=== PATIENT | male | born 1930 | race Caucasian/White ===

== ENCOUNTER 2016-11-28 09:06 | Inpatient (IN) | payer MEDICARE ==
[~2016-11-28] VITALS: Ht 175.3 cm; Wt 118.2 kg
[~2016-11-28 09:06] MED LIST: ALLO100T PO; AMLO5TAB2 PO; AMOX-355 PO; CARV25TA PO; COLC0.6T53 PO; FURO40TA4 PO; HYDR-3812 PO; LISI-552 PO; OMEP20CA12 PO; POTA10TA36 PO; PRD20T PO; RIVA15TA PO; TERA10CA3 PO
[2016-11-28 11:00] VITALS: BP 139/87
[2016-11-28] MEDS ORDERED: AMLO10TA2 PO (11:05)
[2016-11-28] MEDS ORDERED: OXYB10TA PO (11:05)
[2016-11-28] MEDS ORDERED: CARV12.53 PO (11:05)
[2016-11-28] MEDS ORDERED: BELLADONNA ALK/OPIUM (B & O) 30 MG SUPP PR PRN (11:30)
[2016-11-28] MEDS ORDERED: ACETAMINOPHEN 325 MG TABLET/CAPLET (TYLENOL) PO PRN (11:30)
[2016-11-28] MEDS ORDERED: CATHETER FLUSH 10 ML SYR IV PRN (11:45)
[2016-11-28] MEDS ORDERED: OMEG-109 PO (12:22)
[2016-11-28] MEDS ORDERED: VITAMIN B-12 PO (12:22)
--- NOTE | 2016-11-28 12:39 | Diagnostic Imaging Report ---
EXAMINATION: PA and lateral views of the chest. INDICATION: Preoperative evaluation. COMPARISON: No prior studies are available for comparison. FINDINGS: The heart is mildly enlarged. There is left basilar infiltrate or atelectasis. The right lung is clear. There is pulmonary hyperinflation. There is no effusion or pneumothorax. The mediastinum and sandra appear unremarkable. IMPRESSION: Cardiomegaly. COPD. Mild opacity in the left lower lobe may relate to atelectasis or infiltrate. Correlate clinically. Dictated by: Dictated on workstation # [id number]
[2016-11-28] MEDS: 1/2 NS IV SOLUTION 1,000 ML IV SCH (13:52)
[2016-11-28] MEDS: GABAPENTIN 100 MG (NEURONTIN) CAP PO SCH ×2 (13:57→20:04)
[2016-11-28] MEDS: OXYBUTYNIN (DITROPAN) 5 MG TAB PO SCH ×2 (13:57→20:04)
--- NOTE | 2016-11-28 15:28 | Consultation-Cardiology ---
HPI-Cardiology Cardiology Consultation: Date of Consultation 11/28/16 Date of Admission Attending Physician Gabriel Veloz MD Admitting Physician Franci Bose MD Consulting Physician Esvin MATHIAS MD HPI: Chief Complaint: hematuria this is a pleasant 86-year-old gentleman who is a patient of Dr. Veloz. He presents with gross hematuria and cystoscopy is planned for Monday. Dr Veloz consulted cardiology for management of atrial fibrillation, congestive heart failure and perioperative cardiovascular risk assessment. Patient has history of chronic atrial fibrillation and was on Xarelto as an outpatient. Xarelto was discontinued when hematuria occurred. Patient also has history of congestive heart failure and takes Lasix. Amlodipine for blood pressure. The patient denies any cardiac symptoms especially chest pain, shortness of breath, palpitations, near syncope, syncope. Review of Systems-Cardiology Review of Systems Constitutional: No As described under HPI, No no symptoms reported, No chills, No fever, No lightheadedness, No malaise, No tiredness, No weight loss, No weight gain, No other Eyes: No As described under HPI, No no symptoms reported, No blindness, No blurred vision, No contact lenses, No drainage, No decreased acuity, No foreign body sensation, No glasses, No inflammation, No pain, No photophobia, No previous injury, No shadows, No tunnel vision, No other, No vision change Ears/Nose/Throat: No As described under HPI, No no symptoms reported, No chronic hearing loss, No epistaxis, No ear discharge, No ear pain, No loose teeth, No mouth pain, No mouth swelling, No nasal drainage, No nose pain, No recent hearing loss, No throat pain, No throat swelling, No ulcerations, No other Respiratory: No no symptoms reported, No As described under HPI, No cough, No orthopnea, No shortness of breath, No SOB with excertion, No SOB at rest, No stridor, No wheezing, No other Cardiovascular: No no symptoms reported, No As described under HPI, No chest pain, No edema, No irregular heart rate, No lightheadedness, No palpitations, No syncope, No other Gastrointestinal: No no symptoms reported, No As described under HPI, No abdomen distended, No abdominal pain, No blood streaked bowels, No constipation , No diarrhea, No difficulty swallowing, No nausea, No poor appetite, No poor fluid intake, No rectal bleeding, No vomiting, No other, No nausea/vomiting/ diarrhea, No stool coloration changes Genitourinary: hematuria Musculoskeletal: No no symptoms reported, No As describe under HPI, No back pain, No gout, No joint pain, No joint swelling, No muscle pain, No muscle stiffness, No neck pain, No other Skin: No no symptoms reported, No As described under HPI, No change in color, No change in hair/nails, No dryness, No lesions, No lumps, No rash, No other, No skin related problems, No ulcerations, No rash on exposed areas, No ulcerations on exposed areas Psychiatric/Neurological: No As described under HPI, No anxiety, No depression , No emotional problems, No focal weakness, No headache, No no symptoms reported , No numbness, No other, No pre-existing deficit, No seizure, No syncope, No tingling, No tremors, No weakness Hematologic: anemia NFS-[id number] Hx Patient Social History Alcohol Use: Denies Use Recreational Drug Use: No Smoking Status: Former Smoker Type Used: Cigarettes Recent Foreign Travel: No Recent Infectious Disease Expo: No Hospitalization with Isolation: Denies Physical Abuse Screen: No Sexual Abuse: No Past Medical History PMH As described under Assessment. Allergies and Home Medications Allergies Coded Allergies: No Known Drug Allergies (Unverified , 11/28/16) Home Medications Allopurinol 100 Mg Tablet, 100 MG PO BID, (Reported) Amlodipine Besylate 10 Mg Tablet, 10 MG PO DAILY, (Reported) Carvedilol 12.5 Mg Tablet, 12.5 MG PO BID, (Reported) Furosemide 40 Mg Tablet, 40 MG PO DAILY, (Reported) Lisinopril 20 Mg Tablet, 20 MG PO DAILY, (Reported) [place]-3 Fatty Acids/Fish Oil 1 Each Capsule, 1,200 MG PO BID, (Reported) Omeprazole 20 Mg Capsule.dr, 20 MG PO DAILY, (Reported) Oxybutynin Chloride 10 Mg Tab.er.24, 10 MG PO DAILY, (Reported) Potassium Chloride 10 Meq Tab.er.prt, 10 MEQ PO DAILY, (Reported) Terazosin HCl 10 Mg Capsule, 10 MG PO DAILY, (Reported) [Vitamin B-12] , 1 TAB PO DAILY, (Reported) Physical Exam-Cardiology Physical Exam Vital Signs/I&O Vital Sign - Last 12Hours 11/28/16 11/28/16 11/28/16 11:00 13:33 14:42 Temp 97.8 Pulse 94 Resp 24 B/P (MAP) 139/87 Pulse Ox 92 84 O2 Delivery Room Air O2 Flow Rate 4.00 Capillary Refill : Constitutional: No appears stated age, No AAO x 3, No apparent distress, No PERRL, No well-developed, No well-nourished, No other HEENT: No PERRL, No normal ENT inspection, No TMs normal, No pharynx normal, No scleral icterus (R), No scleral icterus (L), No pale conjunctivae (R), No pale conjunctivae (L), No photophobia, No TM abnormal (R), No TM abnormal (L), No pharyngeal erythema, No tonsillar exudate, No other, No discharge, No EOMI, No hearing is well preserved, No hard of hearing, No oral hygience is good, No ulceration, No xanthelasmas are seen Neck: No non-tender, No full range of motion, No supple, No normal inspection, No carotid bruit, No limited range of motion, No lymphadenopathy (R), No lymphadenopathy (L), No tender lateral, No tender midline, No thyromegaly, No other, No carotid pulses are 2 + bilaterally, No with good upstrokes Respiratory: No accessory muscle use, No respiratory distress, No chest tender , No chest expansion is symmetric, No chest is bilaterally symmetric, No lungs clear to percussion, No lungs clear to auscultation, No crackles, No rhonchi, No rales, No stridor, No wheezing, No pleural rub, No other Cardiovascular: No regular rate-rhythm, irregularly irregular, No extra beats, No parasternal heave is noted, No JVD, No edema, No bradycardia, No tachycardia , No point of maximal impulse, No cardiac thrills are palpable, No S1 and S2, No gallop/S3, No gallop/S4, No diastolic murmur, No systolic murmur, No friction rub, No click, No other Gastrointestinal: No tender, No soft, No round, No distended, No pulsatile mass , No organomegaly, No guarding, No rebound, No tenderness, No hernia, No mass, No audible bowel sounds, No abnormal bowel sounds, No abdominal bruits, No spleenomegaly, No other Rectal: deferred Extremities: No normal range of motion, No non-tender, No normal inspection, No pedal edema, No calf tenderness, No normal capillary refill, No pelvis stable , No calf tenderness, No inflammation, No pedal edema, No slow capillary refill , No swelling, No other, No abrasion, No clubbing, No cyanosis, No ecchymosis, No laceration, No no lower extremity edema bilateral, No significant edema, No tenderness, No wound Neurologic/Psychiatric: No manager implementation II-XII nml as tested, No no motor/sensory deficits, No alert, No normal mood/affect, No oriented x 3, No abnormal cerebellar tests, No abnormal manager implementation II-XII, No abnormal gait, No aphasia, No EOM palsy, No facial droop, No motor weakness, No sensory deficit, No depressed affect, No disoriented x 3, No other, No grossly intact, No power is 5/5 both on sides Skin: No normal color, No warm/dry, No cyanosis, No cool, No diaphoresis, No damp, No ecchymosis, No jaundice, No mottled, No pallor, No rash, No tattoos/ piercings, No ulcerations, No rash on exposed areas, No ulcerations on exposed areas, No other ECG Impression ECG Initial ECG Impression: Atrial Fibrillation Comment atrial fibrillation with heart rate 78 bpm. Normal QTC. A/P-Cardiology Assessment/Admission Diagnosis gross hematuria, Chronic atrial fibrillation, Congestive heart failure, Perioperative cardiovascular risk assessment. Plan cardiology consult is requested by for perioperative cardiovascular risk assessment, congestive heart failure and atrial fibrillation. Atrial fibrillation: Patient has chronic atrial fibrillation. The rate is well controlled. I agree with holding Xarelto till source of bleeding is identified and treated. I discussed with the patient and family at length and shared with them that while the patient is off Xarelto there is slight increase in risk of stroke however Xarelto is contraindicated at this point in time due to active bleeding. we will start Xarelto as soon as it is okay to start as per Dr. Veloz. He was on 15 mg of Xarelto (CKD dose). hypertension: Continue amlodipine. Congestive heart failure: Euvolemic. No evidence of gross congestive heart failure. Agree with furosemide. chronic kidney disease: Creatinine 2.46, GFR 25. I gave the patient and family the phone number of a new nephrology office which will be opening across the hospital in [place], if they want, they can follow up there. I will also request an echocardiogram and old records from [facility]. Based on the above the patient will be considered at intermediate risk for major adverse diego-operative cardiac events undergoing a low to intermediate risk non-cardiac procedure. I do not see any contraindication to the above- mentioned procedure. Thank you for your consultation. Please call me if you have any questions. Samina Mathias MD, FACP, FACC, FSCAI, FHRS, CCDS Interventional Cardiology Cardiac Electrophysiology Vascular Medicine and Endovascular Interventions Clinical Quality Measures DVT/VTE Risk/Contraindication: Risk Factor Score Per Nursin RFS Level Per Nursing on Admit: 4+=Very High Esvin MATHIAS MD Nov 28, 2016 3:28 pm
[2016-11-28 16:34] VITALS: BP 120/74
[2016-11-28] MEDS: ALLOPURINOL 100 MG (ZYLOPRIM) TAB PO SCH (17:19)
[2016-11-28] MEDS: KCL 10 MEQ TAB (MICRO K) PO SCH (17:19)
[2016-11-28] MEDS: TERAZOSIN 5 MG (HYTRIN) CAPSULE PO SCH (20:04)
[2016-11-28 20:21] VITALS: BP 128/78
[2016-11-29] VITALS (13 sets, daily range): BP systolic 103–158; BP diastolic 57–94
[2016-11-29] MEDS: 1/2 NS IV SOLUTION 1,000 ML IV SCH ×2 (00:13→20:35)
[2016-11-29] MEDS: PANTOPRAZOLE 20 MG TABLET (PROTONIX) PO SCH (06:21)
[2016-11-29] MEDS: KCL 10 MEQ TAB (MICRO K) PO SCH ×2 (06:21→18:34)
--- NOTE | 2016-11-29 07:46 | Progress Note-Pre Operative ---
Pre-Operative Progress Note H&P Reviewed The H&P was reviewed, patient examined and no changes noted. Date H&P Reviewed: Nov 29, 2016 Pre-Operative Diagnosis: GROSS HEMATURIA, POSSIBLE BLADDER TUMOR LISSY SNYDER MD Nov 29, 2016 7:46 am
--- NOTE | 2016-11-29 08:32 | HISTORY AND PHYSICAL ---
DATE OF ADMISSION: 11/28/2016. CHIEF COMPLAINT: 1. Gross hematuria. 2. Possible bladder tumor. PRESENT HISTORY: 86-year-old white man transferred from [facility] where he was treated for gross hematuria and a possible bladder tumor conservatively; however, he continued to have some bleeding and we transferred him to surgery under the care of cardiology and internal medicine and anesthesiologist presence. The patient is now with no real complaints. REVIEW OF SYSTEMS: Negative. PERSONAL HISTORY: The patient is , has children. No smoking. No alcohol. No drugs. FAMILY HISTORY: Noncontributory. PAST MEDICAL HISTORY: 1. Chronic atrial fibrillation. 2. High blood pressure. 3. Chronic congestive heart failure. 4. Gastroesophageal reflux disease. 5. He had history of cancer of the prostate, treated with radiation. HOME MEDICATIONS: Per chart. PHYSICAL EXAMINATION: GENERAL: Well-nourished, well-developed, in no acute distress. HEAD: Normocephalic. ENT: Unremarkable. NECK: Supple. No bruits. CHEST: Clear, nontender. HEART: Few irregularities. No murmur. No gallop. ABDOMEN: Soft, obese. EXTREMITIES: Lower extremity no edema or cyanosis. NEUROLOGICAL EXAM: Grossly intact. Oriented x3. IMPRESSION: 1. Gross hematuria. 2. Possible bladder tumor. 3. Chronic atrial fibrillation with congestive heart failure and hypertension. 4. Gastroesophageal reflux disease. 5. History of cancer of the prostate treated with radiation without evidence of recurrence. PLAN: We will get a cardiology consultation for surgery. We will do surgery either tomorrow or Monday, cystoscopy with evacuation of blood clots, cauterization of bleeders, possible TURBT. This was fully explained to the patient before and now as well as the family. Job ID: [id number] Dictated Date: 11/29/2016 07:17:02 Astronaut Mission Specialist Date: 11/29/2016 08:27:57/[email or web address]
[2016-11-29] MEDS ORDERED: SEVOFLURANE (ULTANE) 15 ML INHAL SOLN ONE (08:38)
[2016-11-29] MEDS ORDERED: ONDANSETRON 4 MG/2 ML (SDV) Z0FRAN ONE (08:38)
[2016-11-29] MEDS ORDERED: LACTATED RINGERS 1,000 ML IV ONE (08:38)
[2016-11-29] MEDS ORDERED: LIDOCAINE PF 2% 10 ML (XYLOCAINE) AMP ONE (08:38)
[2016-11-29] MEDS ORDERED: proPOfol 200 MG/20 ML (DIPRIVAN) VIAL IV ONE (08:38)
[2016-11-29] MEDS ORDERED: fentaNYL INJECTION 100 MCG/2 ML AMP ONE (08:38)
[2016-11-29] MEDS ORDERED: LACTATED RINGERS 1,000 ML IV PRN (08:58)
[2016-11-29] MEDS ORDERED: ESMOLOL 100 MG/10 ML (BREVIBLOC) VIAL ONE (09:27)
[2016-11-29] MEDS ORDERED: PHENYLEPHRINE 100 MCG/ML 10 ML (ANESTHESIA) SYR ONE (09:27)
[2016-11-29] MEDS ORDERED: RT-ALBUTEROL SULF 2.5 MG/3 ML PRE-MIX VIAL IH STA (09:45)
[2016-11-29] MEDS ORDERED: LACTATED RINGERS 1,000 ML IV SCH (09:51)
--- NOTE | 2016-11-29 09:51 | Progress Note-Post Operative ---
Post-Operative Progess Note Surgeon (s)/Drafter Detail (s) Surgeon LISSY SNYDER MD Drafter Detail: N/A Pre-Operative Diagnosis GROSS HEMATURIA, POSSIBLE BLADDER TUMOR Post-Operative Diagnosis GROSS HEMATURIA, RADIATION CYSTITIS Post-Op Procedure Note Date of Procedure: Nov 29, 2016 Name of Procedure Performed: CYSTOSCOPY, EVACUATION OF CLOTS AND CAUTERIZATION OF BLEEDERS Description of the Procedure: PER DICTATION Findings of the Procedure PER DICTATION Anesthesia Type GENERAL Estimated blood loss (mL): N/A Specimen(s) collected/removed CLOTS LISSY SNYDER MD Nov 29, 2016 09:51
[2016-11-29] MEDS ORDERED: BELLADONNA ALK/OPIUM (B & O) 30 MG SUPP PR PRN (10:00)
[2016-11-29] MEDS ORDERED: morphine INJ 10 MG/ML 1ML (SYR OR VIAL) IVP PRN (10:00)
[2016-11-29] MEDS ORDERED: ONDANSETRON 4 MG/2 ML (SDV) Z0FRAN IVP PRN (10:00)
[2016-11-29] MEDS ORDERED: RT-ALBUTEROL SULF 2.5 MG/3 ML PRE-MIX VIAL ONE (11:57)
--- NOTE | 2016-11-29 12:00 | OPERATIVE REPORT ---
PROCEDURE PHYSICIAN: LISSY SNYDER DATE OF PROCEDURE: 11/29/2016 PREOPERATIVE DIAGNOSIS: Gross hematuria, possible bladder tumor. POSTOPERATIVE DIAGNOSIS: Gross hematuria and radiation cystitis. No bladder tumor. OPERATION PERFORMED: Cystoscopy, evacuation of blood clots and cauterization of bleeder. SURGEON: Magdiel. COMPLICATIONS: None. PROCEDURE: Under satisfactory general anesthesia just using MLA so we do not paralyze the patient because of his bleeding problems, starting with his saturation oxygen of 70 and ended up in the 90s. The patient was put in lithotomy position, the genitalia were prepped and draped in usual sterile fashion after removing the [place] catheter. The urethra was dilated to [place] sound to accommodate 27-Malaysian Thomas resectoscope. The prostate was small. The bladder neck was opened. There was a couple of oozing bleeding at the bladder neck area which were cauterized and stopped. The blood clots were evacuated from the bladder and careful inspection of the bladder revealed no bladder tumor, no stones, just the picture of radiation cystitis. The resectoscope was then removed. A 22-Malaysian, three-way 30 mL balloon catheter was inserted in the bladder. The balloon inflated to 30 mL, connected to continuous bladder irrigation, the return of which was crystal clear. The estimated blood loss negligible. The patient tolerated the procedure and anesthesia well and was sent to recovery room in stable condition. PLAN: We will put him in the Intensive Care Unit at least overnight and will continue consulting Dr. Ed Mathias cardiology rosario. We will also put a consult for Dr. Londono regarding his breathing issues, sleep apnea and COPD, which seems to be the main issue over his heart issue. We will also consult Dr. Schwarz to consider treatment of his radiation cystitis. Job ID: [id number] Dictated Date: 11/29/2016 09:54:12 Disassembler Product Date: 11/29/2016 11:53:06 / karma
[2016-11-29] MEDS: OXYBUTYNIN (DITROPAN) 5 MG TAB PO SCH ×3 (14:36→21:21)
[2016-11-29] MEDS: GABAPENTIN 100 MG (NEURONTIN) CAP PO SCH ×3 (14:36→21:21)
[2016-11-29] MEDS: ALLOPURINOL 100 MG (ZYLOPRIM) TAB PO SCH ×2 (14:37→18:34)
[2016-11-29] MEDS: amLODIPine 5 MG (NORVASC) TAB PO SCH (14:57)
[2016-11-29] MEDS: LEVOFLOXACIN 500 MG/100 ML IV 100 ML IV SCH (14:58)
[2016-11-29] MEDS: FUROSEMIDE 40 MG (LASIX) TAB PO SCH (14:58)
--- NOTE | 2016-11-29 15:26 | Pulmonary Consultation ---
History of Present Illness History of Present Illness Date of Consultation 11/29/16 15:21 Date of Admission History of Present Illness 86yo with hx of CHF, and Afib who underwent cystoscopy secondary to hematuria. PT had some respiratory distress post surgery which SVN improved. Pt was transferred to ICU for close monitoring Allergies and Home Medications Allergies Coded Allergies: No Known Drug Allergies (Unverified , 11/28/16) Home Medications Allopurinol 100 Mg Tablet, 100 MG PO BID, (Reported) Amlodipine Besylate 10 Mg Tablet, 10 MG PO DAILY, (Reported) Carvedilol 12.5 Mg Tablet, 12.5 MG PO BID, (Reported) Furosemide 40 Mg Tablet, 40 MG PO DAILY, (Reported) Lisinopril 20 Mg Tablet, 20 MG PO DAILY, (Reported) [place]-3 Fatty Acids/Fish Oil 1 Each Capsule, 1,200 MG PO BID, (Reported) Omeprazole 20 Mg Capsule.dr, 20 MG PO DAILY, (Reported) Oxybutynin Chloride 10 Mg Tab.er.24, 10 MG PO DAILY, (Reported) Potassium Chloride 10 Meq Tab.er.prt, 10 MEQ PO DAILY, (Reported) Terazosin HCl 10 Mg Capsule, 10 MG PO DAILY, (Reported) [Vitamin B-12] , 1 TAB PO DAILY, (Reported) Past Pbnutxb-Agtxym-Vkvtik Hx Patient Social History Alcohol Use: Denies Use Recreational Drug Use: No Smoking Status: Former Smoker Type Used: Cigarettes Recent Foreign Travel: No Contact w/Someone Who Travel: No Recent Infectious Disease Expo: No Recent Hopitalizations: Yes (HEMATURIA IN [place]) Physical Abuse Screen: No Sexual Abuse: No Seasonal Allergies Seasonal Allergies: No Surgeries HX Surgeries: Yes (INGUINAL HERNIA REPAIR, RIGHT TOTAL HIP) Respiratory Hx Respiratory Disorders: Yes (USES CPAP) Respiratory Disorders: Sleep Apnea, COPD Cardiovascular Hx Cardiac Disorders: Yes ("ONE OF VALVES DOESNT WORK RIGHT", PT DIDNT REPORT CHF OR AFIB, DX ) Neurological Hx Neurological Disorders: No Reproductive System Hx Reproductive Disorders: No Sexually Transmitted Disease: No HIV/AIDS: No Genitourinary Hx Genitourinary Disorders: Yes (PROSTATE CA) Genitourinary Disorders: Benign Prostatic Hyperpl, Prostate Problems Gastrointestinal Hx Gastrointestinal Disorders: Yes (TAKES OMEPRAZOLE) Gastrointestinal Disorders: Gastroesophageal Reflux Musculoskeletal Hx Musculoskeletal Disorders: Yes Musculoskeletal Disorders: Gout HEENT HX ENT Disorders: Yes (GLASSES, SINUS PROBLEMS, PARTIAL DENTURE) Loss of Vision: Bilateral Hearing Impairment: Denies Cancer Hx Cancer: Yes (RADIATION [place] FOR PROSTATE CANCER) Cancer: Prostate Psychosocial Hx Psychiatric Problems: No Integumentary HX Skin/Integumentary Disorder: No Blood Transfusions Hx Blood Disorders: No Adverse Reaction to a Blood Tr: No Exam Exam Vital Signs Date Time Temp Pulse Resp B/P (MAP) Pulse Ox O2 Delivery O2 Flow Rate FiO2 11/29/16 09:00 Nasal Cannula 4.00 11/29/16 08:00 97.4 75 20 158/94 90 NIV/CPAP 11/29/16 04:00 98.0 64 20 128/83 92 NIV/CPAP 11/29/16 00:00 97.9 64 20 125/78 94 Room Air 11/28/16 21:00 Nasal Cannula 4.00 11/28/16 20:21 98.3 83 22 128/78 97 Room Air 11/28/16 16:34 98.7 86 20 120/74 95 Room Air I & O 11/29/16 06:59 Intake Total 1705 ml Output Total 1450 ml Balance 255 ml Assessment/Plan Assessment/Plan Hematuria s/p cystoscopy Dyspnea - PRN treatments -ICU monitoring GILLIAN -PT has CPAP machine with him he will use it tonight AFib- chronic currently controlled CHF - stable Clinical Quality Measures DVT/VTE Risk/Contraindication: Risk Factor Score Per Nursin RFS Level Per Nursing on Admit: 4+=Very High SHEILA HARO DO Nov 29, 2016 15:26
--- NOTE | 2016-11-29 16:22 | Cardiology Progress Note ---
Cardiology SOAP Progress Note Subjective: Seen post-operatively. No complaints. comfortable. Objective: I&O/Vital Signs Vital Sign - Last 12Hours 11/29/16 11/29/16 08:00 09:00 Temp 97.4 Pulse 75 Resp 20 B/P (MAP) 158/94 Pulse Ox 90 O2 Delivery NIV/CPAP Nasal Cannula O2 Flow Rate 4.00 Intake and Output 11/29/16 00:00 Intake Total 705 ml Output Total 1150 ml Balance -445 ml Weight (Pounds): 228 Weight (Ounces): 4.0 Weight (Calculated Kilograms): 103.759556 Constitutional: No appears stated age, No AAO x 3, No apparent distress, No PERRL, No well-developed, No well-nourished, No other Respiratory: No accessory muscle use, No respiratory distress, No chest tender , No chest expansion is symmetric, No chest is bilaterally symmetric, No lungs clear to percussion, No lungs clear to auscultation, No crackles, No rhonchi, No rales, No stridor, No wheezing, No pleural rub, No other Cardiovascular: No regular rate-rhythm, irregularly irregular, No extra beats, No parasternal heave is noted, No JVD, No edema, No bradycardia, No tachycardia , No point of maximal impulse, No cardiac thrills are palpable, No S1 and S2, No gallop/S3, No gallop/S4, No diastolic murmur, No systolic murmur, No friction rub, No click, No other Gastrointestional: No tender, No soft, No round, No distended, No pulsatile mass, No organomegaly, No guarding, No rebound, No tenderness, No hernia, No mass, No audible bowel sounds, No abnormal bowel sounds, No abdominal bruits, No spleenomegaly, No other Extremities: No normal range of motion, No non-tender, No normal inspection, No pedal edema, No calf tenderness, No normal capillary refill, No pelvis stable , No calf tenderness, No inflammation, No pedal edema, No slow capillary refill , No swelling, No other, No abrasion, No clubbing, No cyanosis, No ecchymosis, No laceration, No no lower extremity edema bilateral, No significant edema, No tenderness, No wound Neurologic/Psychiatric: No kiln stoker II-XII nml as tested, No no motor/sensory deficits, No alert, No normal mood/affect, No oriented x 3, No abnormal cerebellar tests, No abnormal kiln stoker II-XII, No abnormal gait, No aphasia, No EOM palsy, No facial droop, No motor weakness, No sensory deficit, No depressed affect, No disoriented x 3, No other, No grossly intact, No power is 5/5 both on sides Skin: No normal color, No warm/dry, No cyanosis, No cool, No diaphoresis, No damp, No ecchymosis, No jaundice, No mottled, No pallor, No rash, No tattoos/ piercings, No ulcerations, No rash on exposed areas, No ulcerations on exposed areas, No other A/P: Assessment/Dx: gross hematuria, Chronic atrial fibrillation, Congestive heart failure, Plan: Atrial fibrillation: Patient has chronic atrial fibrillation. The rate is well controlled. I agree with holding Xarelto till source of bleeding is identified and treated. Continue to hold xarelto for atleast 48 [address] Will wait for Dr Veloz's ok for restarting. He was on 15 mg of Xarelto (CKD dose). hypertension: Continue amlodipine. Congestive heart failure: Euvolemic. No evidence of gross congestive heart failure. Agree with furosemide. chronic kidney disease: Creatinine 2.46, GFR 25. Renal follow up as outpatient Echocardiogram shows normal EF, moderate mitral regurgitation, mild aortic stenosis. will continue to follow Thank you for your consultation. Please call me if you have any questions. Samina Mathias MD, FACP, FACC, FSCAI, FHRS, CCDS Interventional Cardiology Cardiac Electrophysiology Vascular Medicine and Endovascular Interventions Esvin MATHIAS MD Nov 29, 2016 4:22 pm
[2016-11-29] MEDS ORDERED: ALLOPURINOL 100 MG (ZYLOPRIM) TAB PO SCH (21:00)
[2016-11-29] MEDS: TERAZOSIN 5 MG (HYTRIN) CAPSULE PO SCH (21:21)
[2016-11-29] MEDS: CARVEDILOL 12.5 MG (COREG) TABLET PO SCH (21:21)
--- NOTE | 2016-11-29 22:45 | Wound Care Progress Note ---
Subjective Subjective Subjective/Events-last exam 86 year old male with severe, recalcitrant hematuria in a setting of previous therapeutic radiation treatments to pelvis for prostate cancer. I have been asked to evaluate for possible hyperbaric oxygen treatments to reverse radiation cystitis. Have discussed with the patient, and he is agreeable. I will review Radiation Therapy records, cardiac echo, and other documents, and plan to begin therapy as soon as he is stable. Past Medical History: Congestive heart failure, atrial fibrillation, hypertension, history of cancer of the prostate with radiation treatments. Family and social history: Patient is nonsmoker retired. Review of Systems General: Fatigue Pulmonary: Dyspnea Cardiovascular: No: Chest Pain Genitourinary: Hematuria Musculoskeletal: back pain Neurological: Weakness Objective Exam Last Set of Vital Signs Vital Signs Date Time Temp Pulse Resp B/P (MAP) Pulse Ox O2 Delivery O2 Flow Rate FiO2 11/29/16 20:50 2.00 11/29/16 20:00 94 Nasal Cannula 11/29/16 18:00 89 23 106/75 11/29/16 16:00 98.6 Capillary Refill : I&O Bad tableGeneral: Alert, Mild Distress Abdomen: Soft Assessment/Plan Assessment/Plan Assessment/Plan 1. Gross hematuria, refractory, recurrent. 2. History of prostate carcinoma with full dose radiation therapy, 6 years ago. 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 As has been discussed with both the patient and his family. MEE GENTILE MD Nov 29, 2016 22:45
[2016-11-30] VITALS (29 sets, daily range): BP systolic 89–130; BP diastolic 45–87
[2016-11-30] MEDS: LACTATED RINGERS 1,000 ML IV SCH ×3 (01:52→03:07)
[2016-11-30 04:01] LABS: MEAN PLATELET VOLUME 10.5 FL (7.4-10.4); RED BLOOD COUNT 3.06 10^6/uL (4.35-5.85); RED CELL DISTRIBUTION WIDTH 13.7 % (10.0-14.5)
[2016-11-30 04:19] LABS: CALCIUM 8.4 MG/DL (8.5-10.1); CREATININE SERUM 2.45 MG/DL (0.60-1.30); MAGNESIUM 1.7 MG/DL (1.8-2.4); PHOSPHORUS 3.8 MG/DL (2.3-4.7); POTASSIUM 5.2 MMOL/L (3.6-5.0)
--- NOTE | 2016-11-30 06:45 | Pulmonary Progress Note ---
Subjective Subjective/Events-last exam Pt has accessory muscle use and CXR looks worse. Exam Exam Vital Signs Date Time Temp Pulse Resp B/P (MAP) Pulse Ox O2 Delivery O2 Flow Rate FiO2 11/30/16 06:00 84 25 113/73 87 NIV/CPAP 2.00 11/30/16 05:00 73 24 104/82 91 NIV/CPAP 2.00 11/30/16 04:00 80 26 99/51 90 NIV/CPAP 2.00 11/30/16 04:00 94 NIV/CPAP 2.00 11/30/16 03:00 83 27 111/71 97 NIV/CPAP 2.00 11/30/16 02:00 89 23 118/69 97 NIV/CPAP 2.00 11/30/16 01:00 87 28 117/71 97 NIV/CPAP 2.00 11/30/16 01:00 86 11/30/16 00:00 94 NIV/CPAP 2.00 11/30/16 00:00 89 27 117/73 97 NIV/CPAP 2.00 11/29/16 23:00 85 25 126/77 97 NIV/CPAP 2.00 11/29/16 22:00 73 23 117/74 97 NIV/CPAP 2.00 11/29/16 21:00 92 23 126/73 94 Nasal Cannula 2.00 11/29/16 20:50 2.00 11/29/16 20:00 99.8 87 23 113/71 93 Nasal Cannula 2.00 11/29/16 20:00 94 Nasal Cannula 2.00 11/29/16 19:00 89 23 103/57 97 Nasal Cannula 2.00 11/29/16 19:00 90 11/29/16 18:00 89 23 106/75 Nasal Cannula 2.00 11/29/16 17:00 95 34 98 Nasal Cannula 2.00 11/29/16 16:10 94 Nasal Cannula 2.00 11/29/16 16:00 94 27 110/71 94 Nasal Cannula 2.00 11/29/16 16:00 98.6 Nasal Cannula 2.00 11/29/16 15:00 93 22 118/82 99 Nasal Cannula 2.00 11/29/16 14:00 94 26 140/83 95 Nasal Cannula 2.00 11/29/16 13:00 100 20 121/76 90 Nasal Cannula 2.00 11/29/16 12:00 94 Nasal Cannula 2.00 11/29/16 12:00 98.8 Nasal Cannula 2.00 11/29/16 10:40 98.7 Nasal Cannula 2.00 11/29/16 10:40 94 Nasal Cannula 2.00 11/29/16 09:00 Nasal Cannula 4.00 11/29/16 08:00 97.4 75 20 158/94 90 NIV/CPAP I & O 11/30/16 07:00 Intake Total 1400 ml Output Total 3600 ml Balance -2200 ml General Appearance: No Apparent Distress, WD/WN HEENT: PERRL/EOMI, TMs Normal, Normal ENT Inspection, Pharynx Normal Neck: Full Range of Motion, Normal Inspection, Non Tender Respiratory: Chest Non Tender, Normal Breath Sounds, No Accessory Muscle Use, No Respiratory Distress, Decreased Breath Sounds Cardiovascular: Regular Rate, Rhythm, No Edema, No Gallop Gastrointestinal: normal bowel sounds, non tender, soft, no organomegaly, no pulsatile mass Extremity: Normal Capillary Refill, Normal Inspection, Normal Range of Motion Neurologic/Psychiatric: Alert, Oriented x3 Skin: Normal Color, Cool Results Lab Laboratory Tests 11/30/16 03:45 Assessment/Plan Assessment/Plan Hematuria s/p cystoscopy Dyspnea - PRN treatments -ICU monitoring -CXR looks worse today -Check BNP and repeat CXR tomorrow -Keep in ICU one more day GILLIAN -PT has CPAP machine with him he will use it tonight AFib- chronic currently controlled CHF - stable Clinical Quality Measures DVT/VTE Risk/Contraindication: Risk Factor Score Per Nursin RFS Level Per Nursing on Admit: 4+=Very High SHEILA HARO DO Nov 30, 2016 06:45
[2016-11-30] MEDS: KCL 10 MEQ TAB (MICRO K) PO SCH ×2 (07:00→17:00)
[2016-11-30] MEDS ORDERED: FUROSEMIDE 40 MG/4 ML INJ (LASIX) IVP NR (07:07)
[2016-11-30] MEDS: FUROSEMIDE 40 MG (LASIX) TAB PO SCH (07:23)
[2016-11-30] MEDS: PANTOPRAZOLE 20 MG TABLET (PROTONIX) PO SCH (07:28)
[2016-11-30] MEDS ORDERED: MAGNESIUM 1 GM/100 ML IVPB 100 ML IV ONE ×2 (08:03→08:05)
[2016-11-30] MEDS: OXYBUTYNIN (DITROPAN) 5 MG TAB PO SCH ×3 (08:15→20:50)
[2016-11-30] MEDS: amLODIPine 5 MG (NORVASC) TAB PO SCH (08:15)
[2016-11-30] MEDS: GABAPENTIN 100 MG (NEURONTIN) CAP PO SCH ×3 (08:15→20:50)
[2016-11-30] MEDS: CARVEDILOL 12.5 MG (COREG) TABLET PO SCH ×2 (08:15→20:50)
[2016-11-30] MEDS: lisINopril 20 MG (ZESTRIL) TAB PO SCH (08:16)
[2016-11-30] MEDS: ALLOPURINOL 100 MG (ZYLOPRIM) TAB PO SCH ×2 (08:16→17:43)
[2016-11-30] MEDS: LEVOFLOXACIN 500 MG/100 ML IV 100 ML IV SCH (08:16)
--- NOTE | 2016-11-30 08:35 | ECHOCARDIOGRAPHY REPORT ---
PROCEDURE PHYSICIAN: PATRICIA MATHIAS DATE OF PROCEDURE: 11/28/2016 TWO DIMENSIONAL ECHOCARDIOGRAM REPORT PRIMARY PHYSICIAN: Dr. Franci Bose OTHER PHYSICIAN: REFERRING PHYSICIAN: ORDERING PHYSICIAN: Dr. Samina Mathias ATTENDING PHYSICIAN: Dr. Veloz FAMILY PHYSICIAN: READING PHYSICIAN: INDICATION FOR THE PROCEDURE: 1. Atrial fibrillation. 2. Gross hematuria. MEASUREMENTS DERIVED VALUES LV DIAMETER (LAX) NORMALS NORMALS Diastolic (3.6-5.2) Eject. Fract. (60%+/-6%) Systolic (2.3-3.9) Diastolic Vol. % Shortening (0.22-0.42) Systolic Vol. Aortic Root IVS THICKNESS Diastolic (0.6-1.1) LVPW THICKNESS Diastolic (0.6-1.1) LA DIAMETER Systolic (2.1-3.7) FINDINGS: 1. Atrial fibrillation. 2. Left atrial dimensions are significantly enlarged. Left atrial diameter is 5.5 cm. 3. Aortic root dimensions are normal. 4. Left ventricular systolic function is preserved. Left ventricular ejection fraction is 55 to 60%. Mild to moderate concentric LVH is present. Diastolic intraventricular septal diameter is 1.4 cm. 5. There are no wall motion abnormalities. 6. Right heart dimensions are normal. 7. There is no evidence of pericardial effusion. 8. Diastolic evaluation was not performed. 9. IVC is not well visualized. VALVULAR STRUCTURE OF THE HEART: 1. Mild tricuspid regurgitation with RVSP of 37 mmHg. 2. Mild aortic stenosis with peak gradient of 23 mmHg and mean gradient of 13 mmHg. There is moderate mitral regurgitation with mitral valve velocities of just over 4 m/sec. 3. Pulmonic valve is not well visualized. CONCLUSION: 1. This is a technically difficult study. 2. LV and RV size and function is normal. 3. LV EF is 55 to 60%. 4. There is mild to moderate concentric LVH. 5. There is moderate left atrial enlargement. 6. There is mild pulmonary hypertension. 7. There is mild aortic stenosis. 8. There is moderate mitral regurgitation. 9. This study was done in atrial fibrillation. Job ID: [id number] Dictated Date: 11/29/2016 16:18:01 Backhoe Operator Date: 11/30/2016 08:25:32 / allyson
--- NOTE | 2016-11-30 08:59 | Diagnostic Imaging Report ---
INDICATION: COPD. COMPARISON: 11/28/2016. FINDINGS: Two frontal radiographic views of the chest were obtained in apical lordotic positioning. The left hemidiaphragm is less well-defined on today's exam; however, this may be related to technique and superimposition of the cardiac silhouette and overlying soft tissues. No large effusion is seen on the right. There is no pneumothorax on either side. The cardiac silhouette does appear enlarged. The pulmonary vasculature is within normal limits. The bony structures show no gross acute abnormalities. IMPRESSION: 1. The left lung base is less well-visualized on today's exam. Again, this may be related to technique although a developing infiltrate cannot be excluded. 2. Cardiomegaly. Dictated by: Dictated on workstation # [id number]
[2016-11-30] MEDS ORDERED: OMEPRAZOLE 20 MG (PriLOSEC) CAP NON-FORMULARY PO SCH (09:00)
[2016-11-30] MEDS ORDERED: FUROSEMIDE 40 MG (LASIX) TAB PO SCH (09:00)
[2016-11-30] MEDS ORDERED: amLODIPine 10 MG (NORVASC) TAB PO SCH (09:00)
[2016-11-30] MEDS ORDERED: LEVOFLOXACIN 500 MG/100 ML IV 100 ML IV ONE (10:00)
--- NOTE | 2016-11-30 10:51 | Progress Note-Urology ---
Progress Note-Urology Progress Notes/Assess & Plan Progress/Assessment & Plan APPRECIATE AMANDA HARO AND ELIZABET HELP AND INPUT. URINE CLEAR. CXR NOTED. DISCUSSED WITH DR HARO. PLAN 1. CT CHEST WOUT AND MANAGE ACCORDINGLY 2. LABS IN AM URINE CLEAR, DC CBI Final Diagnosis GROSS HEMATURIA AND RADIATION CYSTITIS LISSY SNYDER MD Nov 30, 2016 10:51
[2016-11-30] MEDS ORDERED: PHARMACY TO DOSE IV SCH (11:15)
[2016-11-30] MEDS ORDERED: NS IV 1000 ML 1,000 ML ONE ×5 (11:28→23:11)
--- NOTE | 2016-11-30 11:38 | Anesthesia-Procedure Note ---
Procedure Start/Stop Time Date of Procedure: Nov 30, 2016 Start Time: 11:20 Stop Time: 11:35 Procedures/Interventions RSI: No Vital Signs Pre-procedure Patient Coding in CT 100% pre-Ox, [id number]: No Intubation Method: orotracheal MAC (size used 1-4): 3 Grade View: 2 Mask Ventilation: positive Positive End Tide CO2: Yes Breath Sounds after Intubation: bilateral-equal (Distant) ETT Securred @ (cm): 23 Intubated with ease: Yes Intubation Complications: no complications Post Procedure Patient Intubated with MAC 3. +ETCO2. SHERRY GUTIERREZ CRNA Nov 30, 2016 11:38
--- NOTE | 2016-11-30 11:47 | Diagnostic Imaging Report ---
PROCEDURE: CT chest without contrast. TECHNIQUE: Multiple contiguous axial images were obtained through the chest without the use of intravenous contrast. INDICATION: Left lung infiltrates or fluid. Findings: There is mild respiratory motion artifact seen. There is bilateral tiny pleural effusions and bibasilar atelectasis seen. There is no significant pulmonary edema. No pneumothorax. There is slight narrowing of the AP dimension of the trachea compatible with mild tracheomalacia. No airway obstruction. Minimally prominent prevascular lymph node is seen with no significant lymphadenopathy in the mediastinum or axilla. The cardiac chambers are significantly dilated particularly the right atrium and right ventricle. The thoracic aorta is tortuous. There is no mediastinal hematoma. No pericardial effusion. Sections in the upper abdomen demonstrate no significant abnormality. Degenerative changes are seen in the thoracic spine. Impression: 1. Tiny bilateral pleural effusions slightly more on the right side, associated with subsegmental bilateral lower lobe atelectasis. No significant pulmonary edema. No pneumothorax or hemorrhage. 2. Significant cardiomegaly particularly affecting the right cardiac chambers. Immediately after the scan was performed, and as the supervisor microbiology technologists was getting the patient out of the CT scan, she noticed that he is not responsive and with skin discoloration. Immediately a code blue was called and physician's and nurses teams from the ER, cardiac catheter lab, the ICU started resuscitative measures. This stat read and findings were discussed with the Dr. Londono and Dr. Veloz. Dictated by: Dictated on workstation # [id number]
--- NOTE | 2016-11-30 11:52 | Progress Note-Urology ---
Progress Note-Urology Progress Notes/Assess & Plan Progress/Assessment & Plan PATIENT ARRESTED IN CT, CPR SUCCESSFUL, CAUSE ?AIRWAY, LUNGS, CARDIAC, OR PE BACK TO ICU OR RESPIRATOR UNDER DR HARO'S CARE PATIENT CRITICAL FAMILY NOTIFIED OF ALL EVENTS Final Diagnosis CARDIAC ARREST LISSY SNYDER MD Nov 30, 2016 11:52
[2016-11-30] MEDS ORDERED: PIPERACILLIN SODIUM/TAZOBACTAM 4.5 GM in NS (IVPB) 100 ML IV NR (12:05)
[2016-11-30] MEDS ORDERED: RT-ALBUTEROL/IPRATROPIUM 3 ML (DUONEB) VIAL INH PRN (12:15)
[2016-11-30 12:17] LABS: MEAN PLATELET VOLUME 10.4 FL (7.4-10.4); RED BLOOD COUNT 2.76 10^6/uL (4.35-5.85); RED CELL DISTRIBUTION WIDTH 13.9 % (10.0-14.5); WHITE BLOOD COUNT 12.3 10^3/uL (4.3-11.0)
[2016-11-30] MEDS ORDERED: NOREPINEPHRINE 4 MG/4 ML (LEVOPHED) AMP IV ONE (12:23)
[2016-11-30] MEDS ORDERED: D5W 250 ML (IVPB) 250 ML IV ONE (12:23)
[2016-11-30] MEDS ORDERED: DOPamine DRIP 250 ML IV ONE (12:28)
[2016-11-30] MEDS ORDERED: EPINEPHrine INJECTION 1 MG/ML AMP IV NR (12:32)
[2016-11-30 12:41] LABS: ALANINE AMINOTRANSFERASE 52 U/L (0-55); ALBUMIN 2.1 G/DL (3.2-4.5); ANION GAP 8 MMOL/L (5-14); ASPARTATE AMINO TRANSFERASE 86 U/L (5-34); BILIRUBIN,TOTAL 0.8 MG/DL (0.1-1.0); BLOOD UREA NITROGEN 38 MG/DL (7-18); BUN/CREATININE RATIO 16; CALCIUM 7.2 MG/DL (8.5-10.1); CARBON DIOXIDE 24 MMOL/L (21-32); CHLORIDE 107 MMOL/L (98-107); CREATININE SERUM 2.39 MG/DL (0.60-1.30); GFR ESTIMATED 26; GLUCOSE 164 MG/DL (70-105); MAGNESIUM 1.9 MG/DL (1.8-2.4); POTASSIUM 4.9 MMOL/L (3.6-5.0); SODIUM 139 MMOL/L (135-145); TOTAL PROTEIN 4.7 G/DL (6.4-8.2)
[2016-11-30] MEDS: DOPamine DRIP 250 ML IV SCH ×2 (12:43→12:44)
[2016-11-30] MEDS: NOREPINEPHRINE 4 MG in D5W 250 ML (IVPB) 250 ML IV SCH ×4 (12:43→23:22)
[2016-11-30 12:49] LABS: TROPONIN I < 0.30 NG/ML (<0.30)
--- NOTE | 2016-11-30 12:54 | Diagnostic Imaging Report ---
INDICATION: Status post CODE BLUE. COMPARISON: CT chest earlier same day. FINDINGS: Single frontal radiographic view of the chest was again obtained. There has been interval placement of endotracheal tube, tip of which terminates approximately 2 cm above the rosetta. Enteric tube is also present. Distal tip terminates at the level of the diaphragm likely at the GE junction. Right internal jugular central venous catheter is also seen with tip in the SVC. Heart is enlarged. There has been interval development of mild pulmonary vascular congestion. There has also been interval development of dense opacification of the right mid and upper lung field. Pleural effusion is seen on CT chest from same day are less conspicuous on this exam. No pneumothorax is seen on either side. IMPRESSION: 1. Lines and tubes as above. 2. Interval development of dense opacification in the right mid and upper lung field. Findings could be on the basis of aspiration. Developing infiltrate is also considered. 3. Cardiomegaly with mild pulmonary vascular congestion. Dictated by: Dictated on workstation # [id number]
[2016-11-30] MEDS ORDERED: VANCOMYCIN 2000 MG/NS 500 ML IVPB IV SCH ×2 (13:00)
[2016-11-30] MEDS: 1/2 NS IV SOLUTION 1,000 ML IV SCH (13:15)
[2016-11-30] MEDS ORDERED: FUROSEMIDE 40 MG/4 ML INJ (LASIX) IVP ONE (13:30)
[2016-11-30] MEDS ORDERED: NS 1000 ML IV BAG IV ONE (14:00)
[2016-11-30] MEDS ORDERED: CATHETER FLUSH 10 ML SYR IV ONE (14:00)
[2016-11-30] MEDS ORDERED: ATROPINE INJECTION 1 MG/10 ML SYR (ABBOTT) INJ ONE (14:00)
[2016-11-30] MEDS ORDERED: SODIUM BICARB 8.4% 50 MEQ/50 ML (ABBOTT) SYR INJ ONE (14:00)
[2016-11-30] MEDS ORDERED: EPINEPHrine 0.1 MG/ML 10 ML (HOSPIRA) SYR INJ ONE (14:00)
--- NOTE | 2016-11-30 14:26 | Occ Therapy Progress Note ---
Therapy Progress Note Order received for OT eval and treat. Chart review completed. Pt currently on vent; will hold OT at this time. Will continue to monitor and will initiate OT when pt off vent. MARINA GALLOWAY OT Nov 30, 2016 14:26
--- NOTE | 2016-11-30 14:30 | Progress Note-Standard ---
Standard Progress Note Progress Notes/Assess & Plan Progress/Assessment & Plan Anesthesia Note ([id number]) Called to ICU for arterial line placement. Events of this am noted, pt intubated and on vent currently. ChloraPrep used, 22G A-line secured with good waveform on 3rd attempt. Secured with sterile tegaderm. Pt tolerated procedure well, condition is critical. SHARON MCMANUS DO Nov 30, 2016 14:30
--- NOTE | 2016-11-30 14:33 | Physical Therapy Progress Note ---
Therapy Progress Note Chart reviewed and eval attempted. Patient is currently on the vent. Will hold for now and attempt again after patient comes off the vent. TODD TRAORE PT Nov 30, 2016 14:33
[2016-11-30] MEDS: RT-ALBUTEROL/IPRATROPIUM 3 ML (DUONEB) VIAL INH SCH ×2 (14:35→20:13)
[2016-11-30 14:37] LABS: ABG BASE EXCESS -0.4 MMOL/L (-2.5-2.5); ABG HCO3 26 MMOL/L (23-27); ABG OXYGEN SATURATION 91 % (94-100); ABG PCO2 56 MMHG (35-45); ABG PO2 68 MMHG (79-93); ABG TCO2 27.3 MMOL/L (21.0-31.0)
[2016-11-30] MEDS ORDERED: EPINEPHrine 0.1 MG/ML 10 ML (HOSPIRA) SYR IJ ONE (14:37)
[2016-11-30 14:40] LABS: ABG PH 7.28 (7.37-7.43); ALLENS TEST ART LINE; PATIENT TEMP 98.4
--- NOTE | 2016-11-30 15:25 | Diagnostic Imaging Report ---
EXAMINATION: Bilateral lower extremity duplex venous ultrasound. TECHNIQUE: DVT protocol. Multiple sonographic images with color Doppler and waveform interrogation were performed of the lower extremity veins, bilaterally, with compression and augmentation maneuvers. INDICATION: Cardiac arrest. FINDINGS: The lower extremity veins from the common femoral veins to below the knee veins were examined with normal color-flow, compressibility and normal waveform demonstrated. IMPRESSION: No evidence of DVT in either lower extremity. Dictated by: Dictated on workstation # [id number]
[2016-11-30 16:31] LABS: ABG BASE EXCESS 0.1 MMOL/L (-2.5-2.5); ABG HCO3 25 MMOL/L (23-27); ABG OXYGEN SATURATION 91 % (94-100); ABG PCO2 43 MMHG (35-45); ABG PH 7.38 (7.37-7.43); ABG PO2 57 MMHG (79-93); ABG TCO2 26.1 MMOL/L (21.0-31.0); PATIENT TEMP 97.7
--- NOTE | 2016-11-30 17:39 | Cardiology Progress Note ---
Cardiology SOAP Progress Note Subjective: Patient seen and examined at the bedside. Events of the morning noted. Apparently the patient had gone for CT scan for worsening shortness of breath and had cardiorespiratory arrest. He was intubated and ventilated. Objective: I&O/Vital Signs Vital Sign - Last 12Hours 11/30/16 11/30/16 11/30/16 11/30/16 06:00 07:00 08:10 08:15 Temp 100.5 Pulse 84 76 93 Resp 25 27 B/P (MAP) 113/73 109/65 Pulse Ox 87 95 94 O2 Delivery NIV/CPAP Nasal Cannula Nasal Cannula O2 Flow Rate 2.00 2.00 2.00 11/30/16 11/30/16 11/30/16 11/30/16 08:39 09:32 12:14 12:15 Temp 98.5 Pulse 73 Resp 19 Pulse Ox 92 O2 Delivery Mechanical Ventilator O2 Flow Rate 2.00 FiO2 50 50 11/30/16 11/30/16 11/30/16 11/30/16 12:40 13:00 13:23 14:35 Temp 98.7 Pulse 76 96 Resp 18 Pulse Ox 100 O2 Delivery Mechanical Ventilator O2 Flow Rate 50.00 FiO2 100 100 11/30/16 11/30/16 16:00 16:11 Temp 97.8 Pulse 97 Resp 24 Pulse Ox 99 O2 Delivery Mechanical Ventilator O2 Flow Rate 90.00 FiO2 90 Intake and Output 11/30/16 00:00 Intake Total 2750 ml Output Total 1250 ml Balance 1500 ml Weight (Pounds): 231 Weight (Ounces): 4.0 Weight (Calculated Kilograms): 104.820282 Constitutional: No appears stated age, No PERRL, No well-developed, No well- nourished, other (Intubated and ventilated) Respiratory: No accessory muscle use, No respiratory distress, No chest tender , No chest expansion is symmetric, No chest is bilaterally symmetric, No lungs clear to percussion, No lungs clear to auscultation, No crackles, rhonchi, No rales, No stridor, No wheezing, No pleural rub, No other Cardiovascular: No regular rate-rhythm, irregularly irregular, No extra beats, No parasternal heave is noted, No JVD, No edema, No bradycardia, No tachycardia , No point of maximal impulse, No cardiac thrills are palpable, No S1 and S2, No gallop/S3, No gallop/S4, No diastolic murmur, No systolic murmur, No friction rub, No click, No other Gastrointestional: No tender, No soft, No round, No distended, No pulsatile mass, No organomegaly, No guarding, No rebound, No tenderness, No hernia, No mass, No audible bowel sounds, No abnormal bowel sounds, No abdominal bruits, No spleenomegaly, No other Extremities: No normal range of motion, No non-tender, No normal inspection, No pedal edema, No calf tenderness, No normal capillary refill, No pelvis stable , No calf tenderness, No inflammation, No pedal edema, No slow capillary refill , No swelling, No other, No abrasion, No clubbing, No cyanosis, No ecchymosis, No laceration, No no lower extremity edema bilateral, No significant edema, No tenderness, No wound Neurologic/Psychiatric: No timber cruiser II-XII nml as tested, No no motor/sensory deficits, No alert, No normal mood/affect, No oriented x 3, No abnormal cerebellar tests, No abnormal timber cruiser II-XII, No abnormal gait, No aphasia, No EOM palsy, No facial droop, No motor weakness, No sensory deficit, No depressed affect, No disoriented x 3, No other, No grossly intact, No power is 5/5 both on sides Skin: No normal color, No warm/dry, No cyanosis, No cool, No diaphoresis, No damp, No ecchymosis, No jaundice, No mottled, No pallor, No rash, No tattoos/ piercings, No ulcerations, No rash on exposed areas, No ulcerations on exposed areas, No other Results/Procedures: Labs Laboratory Tests 11/30/16 03:45: White Blood Count 10.0, Red Blood Count 3.06L, Hemoglobin 9.4L, Hematocrit 30L, Mean Corpuscular Volume 97, Mean Corpuscular Hemoglobin 31, Mean Corpuscular Hemoglobin Concent 32, Red Cell Distribution Width 13.7, Platelet Count 231, Mean Platelet Volume 10.5H, Sodium Level 138, Potassium Level 5.2H, Chloride Level 104, Carbon Dioxide Level 26, Anion Gap 8, Blood Urea Nitrogen 39H, Creatinine 2.45H, Estimat Glomerular Filtration Rate 25, BUN/Creatinine Ratio 16 , Glucose Level 107H, Calcium Level 8.4L, Phosphorus Level 3.8, Magnesium Level 1.7L 11/30/16 12:05: White Blood Count 12.3H, Red Blood Count 2.76L, Hemoglobin 8.5L, Hematocrit 27L , Mean Corpuscular Volume 99, Mean Corpuscular Hemoglobin 31, Mean Corpuscular Hemoglobin Concent 31L, Red Cell Distribution Width 13.9, Platelet Count 229, Mean Platelet Volume 10.4, Sodium Level 139, Potassium Level 4.9, Chloride Level 107, Carbon Dioxide Level 24, Anion Gap 8, Blood Urea Nitrogen 38H, Creatinine 2.39H, Estimat Glomerular Filtration Rate 26, BUN/Creatinine Ratio 16 , Glucose Level 164H, Calcium Level 7.2L, Magnesium Level 1.9, Total Bilirubin 0.8, Aspartate Amino Transf (AST/SGOT) 86H, Alanine Aminotransferase (ALT/SGPT) 52, Alkaline Phosphatase 87, Troponin I < 0.30, B-Type Natriuretic Peptide 387.7H, Total Protein 4.7L, Albumin 2.1L 11/30/16 14:30: Blood Gas Puncture Site ARTLINE, Blood Gas Patient Temperature 98.4, Arterial Blood pH 7.28*L, Arterial Blood Partial Pressure CO2 56H, Arterial Blood Partial Pressure O2 68L, Arterial Blood HCO3 26, Arterial Blood Total CO2 27.3, Arterial Blood Oxygen Saturation 91L, Arterial Blood Base Excess -0.4, Parish Test ART LINE, Blood Gas Ventilator Setting YES, Blood Gas Inspired Oxygen 100% 11/30/16 16:25: Blood Gas Puncture Site ART LINE, Blood Gas Patient Temperature 97.7, Arterial Blood pH 7.38, Arterial Blood Partial Pressure CO2 43, Arterial Blood Partial Pressure O2 57L, Arterial Blood HCO3 25, Arterial Blood Total CO2 26.1, Arterial Blood Oxygen Saturation 91L, Arterial Blood Base Excess 0.1, Parish Test NA, Blood Gas Ventilator Setting YES, Blood Gas Inspired Oxygen 90% A/P: Assessment/Dx: gross hematuria, Chronic atrial fibrillation, Congestive heart failure, Cardiorespiratory arrest Plan: Cardiorespiratory arrest: Chest examination reveals rhonchi. I recommended 80 mg of IV Lasix. CT chest does not show any significant pulmonary edema. Echocardiogram was repeated which is a technically difficult study due to being on ventilator but it does show normal EF, moderate mitral regurgitation and mild aortic stenosis. These echocardiographic findings are similar to the echocardiogram done before surgery. BNP is mildly elevated. All of this does not suggest florid congestive heart failure or significant valvular heart disease. Other causes of cardiorespiratory arrest need to be considered including pulmonary embolism. Atrial fibrillation: Patient has chronic atrial fibrillation. Xarelto when okay with urology hypertension: was hypotensive when i saw him. hold amlodipine chronic kidney disease: Creatinine 2.46, GFR 25. Renal follow up as outpatient will continue to follow Thank you for your consultation. Please call me if you have any questions. Samina Mathias MD, FACP, FACC, FSCAI, FHRS, CCDS Interventional Cardiology Cardiac Electrophysiology Vascular Medicine and Endovascular Interventions Esvin MATHIAS MD Nov 30, 2016 5:39 pm
--- NOTE | 2016-11-30 18:11 | Inpatient Code Blue ---
General Stated Complaint: GROSS HEMATURIA Allergies and Home Medications Allergies Coded Allergies: No Known Drug Allergies (Unverified , 11/28/16) Home Medications Allopurinol 100 Mg Tablet, 100 MG PO BID, (Reported) Amlodipine Besylate 10 Mg Tablet, 10 MG PO DAILY, (Reported) Carvedilol 12.5 Mg Tablet, 12.5 MG PO BID, (Reported) Furosemide 40 Mg Tablet, 40 MG PO DAILY, (Reported) Lisinopril 20 Mg Tablet, 20 MG PO DAILY, (Reported) [place]-3 Fatty Acids/Fish Oil 1 Each Capsule, 1,200 MG PO BID, (Reported) Omeprazole 20 Mg Capsule.dr, 20 MG PO DAILY, (Reported) Oxybutynin Chloride 10 Mg Tab.er.24, 10 MG PO DAILY, (Reported) Potassium Chloride 10 Meq Tab.er.prt, 10 MEQ PO DAILY, (Reported) Terazosin HCl 10 Mg Capsule, 10 MG PO DAILY, (Reported) [Vitamin B-12] , 1 TAB PO DAILY, (Reported) Physical Exam Vital Signs Vital Sign - Last 12Hours 11/28/16 11/28/16 11/30/16 11:00 14:42 12:14 Temp 97.8 Pulse 94 Resp 24 B/P (MAP) 139/87 Pulse Ox 92 O2 Delivery Room Air O2 Flow Rate 4.00 FiO2 50 Capillary Refill : Intubation Method: orotracheal Tube Size: 7.50 Positive End Tide CO2: Yes Breath Sounds after Intubation: bilateral-equal (Distant) Intubation Complications: no complications Progress/Results/Core Measures Results/Orders Lab Results Laboratory Tests Test 11/30/16 03:45 11/30/16 12:05 11/30/16 14:30 11/30/16 16:25 Range/Units White Blood Count 10.0 12.3 H 4.3-11.0 10^3/uL Red Blood Count 3.06 L 2.76 L 4.35-5.85 10^6/uL Hemoglobin 9.4 L 8.5 L 13.3-17.7 G/DL Hematocrit 30 L 27 L 40-54 % Mean Corpuscular Volume 97 99 80-99 FL Mean Corpuscular Hemoglobin 31 31 25-34 PG Mean Corpuscular Hemoglobin Concent 32 31 L 32-36 G/DL Red Cell Distribution Width 13.7 13.9 10.0-14.5 % Platelet Count 231 229 130-400 10^3/uL Mean Platelet Volume 10.5 H 10.4 7.4-10.4 FL Sodium Level 138 139 135-145 MMOL/L Potassium Level 5.2 H 4.9 3.6-5.0 MMOL/L Chloride Level 104 107 98-107 MMOL/L Carbon Dioxide Level 26 24 21-32 MMOL/L Anion Gap 8 8 5-14 MMOL/L Blood Urea Nitrogen 39 H 38 H 7-18 MG/DL Creatinine 2.45 H 2.39 H 0.60-1.30 MG/DL Estimat Glomerular Filtration Rate 25 26 BUN/Creatinine Ratio 16 16 Glucose Level 107 H 164 H 70-105 MG/DL Calcium Level 8.4 L 7.2 L 8.5-10.1 MG/DL Phosphorus Level 3.8 2.3-4.7 MG/DL Magnesium Level 1.7 L 1.9 1.8-2.4 MG/DL Total Bilirubin 0.8 0.1-1.0 MG/DL Aspartate Amino Transf (AST/SGOT) 86 H 5-34 U/L Alanine Aminotransferase (ALT/SGPT) 52 0-55 U/L Alkaline Phosphatase 87 40-136 U/L Troponin I < 0.30 <0.30 NG/ML B-Type Natriuretic Peptide 387.7 H <100.0 PG/ML Total Protein 4.7 L 6.4-8.2 G/DL Albumin 2.1 L 3.2-4.5 G/DL Blood Gas Puncture Site ARTLINE ART LINE Blood Gas Patient Temperature 98.4 97.7 Arterial Blood pH 7.28 *L 7.38 7.37-7.43 Arterial Blood Partial Pressure CO2 56 H 43 35-45 MMHG Arterial Blood Partial Pressure O2 68 L 57 L 79-93 MMHG Arterial Blood HCO3 26 25 23-27 MMOL/L Arterial Blood Total CO2 27.3 26.1 21.0-31.0 MMOL/L Arterial Blood Oxygen Saturation 91 L 91 L 94-100 % Arterial Blood Base Excess -0.4 0.1 -2.5-2.5 MMOL/L Parish Test ART LINE NA Blood Gas Ventilator Setting YES YES Blood Gas Inspired Oxygen 100% 90% Medications Given in ED Current Medications Medications Dose Ordered Sig/Gretta Route Start Time Stop Time Status Last Admin Dose Admin Furosemide 80 mg ONCE ONCE IVP 11/30/16 13:30 11/30/16 14:30 DC 11/30/16 13:49 80 MG Magnesium Sulfate/ Dextrose 100 ml @ ud STK-MED ONCE IV 11/30/16 08:03 11/30/16 08:07 DC 11/30/16 09:28 100 MLS/HR Magnesium Sulfate/ Dextrose 100 ml @ ud STK-MED ONCE IV 11/30/16 08:05 11/30/16 08:09 DC 11/30/16 10:24 100 MLS/HR Sodium Chloride 1,000 ml @ ud STK-MED ONCE .ROUTE 11/30/16 11:28 11/30/16 11:31 DC 11/30/16 12:40 999 MLS/HR Sodium Chloride 1,000 ml @ ud STK-MED ONCE .ROUTE 11/30/16 12:10 11/30/16 12:15 DC 11/30/16 12:46 999 MLS/HR Sodium Chloride 1,000 ml @ ud STK-MED ONCE .ROUTE 11/30/16 13:51 11/30/16 13:55 DC 11/30/16 14:40 0 MLS/HR Sodium Chloride 1,000 ml @ ud STK-MED ONCE .ROUTE 11/30/16 13:58 11/30/16 14:02 DC 11/30/16 14:41 0 MLS/HR Vital Signs/I&O Vital Sign - Last 12Hours 11/28/16 11/28/16 11/28/16 11/28/16 11:00 13:33 14:42 16:34 Temp 97.8 98.7 Pulse 94 86 Resp 24 20 B/P (MAP) 139/87 120/74 Pulse Ox 92 84 95 O2 Delivery Room Air Room Air O2 Flow Rate 4.00 11/28/16 11/28/16 11/29/16 11/29/16 20:21 21:00 00:00 04:00 Temp 98.3 97.9 98.0 Pulse 83 64 64 Resp 22 20 20 B/P (MAP) 128/78 125/78 128/83 Pulse Ox 97 94 92 O2 Delivery Room Air Nasal Cannula Room Air NIV/CPAP O2 Flow Rate 4.00 11/29/16 11/29/16 11/29/16 11/29/16 08:00 09:00 10:40 10:40 Temp 97.4 98.7 Pulse 75 Resp 20 B/P (MAP) 158/94 Pulse Ox 90 94 O2 Delivery NIV/CPAP Nasal Cannula Nasal Cannula Nasal Cannula O2 Flow Rate 4.00 2.00 2.00 11/29/16 11/29/16 11/29/16 11/29/16 12:00 12:00 13:00 14:00 Temp 98.8 Pulse 100 94 Resp 20 B/P (MAP) 121/76 140/83 Pulse Ox 94 90 95 O2 Delivery Nasal Cannula Nasal Cannula Nasal Cannula Nasal Cannula O2 Flow Rate 2.00 2.00 2.00 2.00 11/29/16 11/29/16 11/29/16 11/29/16 15:00 16:00 16:00 16:10 Temp 98.6 Pulse 93 94 Resp B/P (MAP) 118/82 110/71 Pulse Ox 99 94 94 O2 Delivery Nasal Cannula Nasal Cannula Nasal Cannula Nasal Cannula O2 Flow Rate 2.00 2.00 2.00 2.00 11/29/16 11/29/16 11/29/16 11/29/16 17:00 18:00 19:00 19:00 Pulse 95 89 90 89 Resp 34 23 23 B/P (MAP) 106/75 103/57 Pulse Ox 98 97 O2 Delivery Nasal Cannula Nasal Cannula Nasal Cannula O2 Flow Rate 2.00 2.00 2.00 11/29/16 11/29/16 11/29/16 11/29/16 20:00 20:00 20:50 21:00 Temp 99.8 Pulse 87 92 Resp 23 23 B/P (MAP) 113/71 126/73 Pulse Ox 94 93 94 O2 Delivery Nasal Cannula Nasal Cannula Nasal Cannula O2 Flow Rate 2.00 2.00 2.00 2.00 11/29/16 11/29/16 11/30/16 11/30/16 22:00 23:00 00:00 00:00 Pulse 73 85 89 Resp 23 25 27 B/P (MAP) 117/74 126/77 117/73 Pulse Ox 97 97 97 94 O2 Delivery NIV/CPAP NIV/CPAP NIV/CPAP NIV/CPAP O2 Flow Rate 2.00 2.00 2.00 2.00 11/30/16 11/30/16 11/30/16 11/30/16 01:00 01:00 02:00 03:00 Pulse 86 87 89 83 Resp 28 23 27 B/P (MAP) 117/71 118/69 111/71 Pulse Ox 97 97 97 O2 Delivery NIV/CPAP NIV/CPAP NIV/CPAP O2 Flow Rate 2.00 2.00 2.00 11/30/16 11/30/16 11/30/16 11/30/16 04:00 04:00 05:00 06:00 Pulse 80 73 84 Resp 26 24 25 B/P (MAP) 99/51 104/82 113/73 Pulse Ox 94 90 91 87 O2 Delivery NIV/CPAP NIV/CPAP NIV/CPAP NIV/CPAP O2 Flow Rate 2.00 2.00 2.00 2.00 11/30/16 11/30/16 11/30/16 11/30/16 07:00 08:10 08:15 08:39 Temp 100.5 Pulse 76 93 Resp 27 B/P (MAP) 109/65 Pulse Ox 95 94 O2 Delivery Nasal Cannula Nasal Cannula O2 Flow Rate 2.00 2.00 2.00 11/30/16 11/30/16 11/30/16 11/30/16 09:32 12:14 12:15 12:40 Temp 98.5 98.7 Pulse 73 Resp 19 Pulse Ox 92 O2 Delivery Mechanical Ventilator Mechanical Ventilator O2 Flow Rate 50.00 FiO2 50 50 11/30/16 11/30/16 11/30/16 11/30/16 13:00 13:23 14:35 16:00 Temp 97.8 Pulse 76 96 Resp 18 Pulse Ox 100 O2 Delivery Mechanical Ventilator O2 Flow Rate 90.00 FiO2 100 100 11/30/16 11/30/16 16:11 16:15 Pulse 97 Resp 24 Pulse Ox 99 O2 Delivery Mechanical Ventilator FiO2 90 80 Intake and Output 11/30/16 00:00 Intake Total 2750 ml Output Total 1250 ml Balance 1500 ml Clinical Quality Measures DVT/VTE Risk/Contraindication: Risk Factor Score Per Nursin RFS Level Per Nursing on Admit: 4+=Very High ANASTACIO BELLE DO Nov 30, 2016 18:11
[2016-11-30] MEDS: PIPERACILLIN SODIUM/TAZOBACTAM 4.5 GM in NS (IVPB) 100 ML IV SCH (18:14)
[2016-11-30] MEDS: fentaNYL INJECTION 100 MCG/2 ML AMP IV PRN ×2 (20:13→23:20)
[2016-11-30] MEDS ORDERED: fentaNYL INJECTION 100 MCG/2 ML AMP IVP PRN (20:15)
[2016-11-30] MEDS: TERAZOSIN 5 MG (HYTRIN) CAPSULE PO SCH (20:50)
[2016-12-01] VITALS (31 sets, daily range): BP systolic 90–154; BP diastolic 43–80
[2016-12-01] MEDS: NS IV 1000 ML 1,000 ML IV SCH ×3 (00:55→17:34)
[2016-12-01] MEDS: fentaNYL INJECTION 100 MCG/2 ML AMP IV PRN ×3 (01:09→05:10)
[2016-12-01] MEDS: RT-ALBUTEROL/IPRATROPIUM 3 ML (DUONEB) VIAL INH SCH ×4 (02:06→21:44)
[2016-12-01] MEDS: PIPERACILLIN SODIUM/TAZOBACTAM 4.5 GM in NS (IVPB) 100 ML IV SCH ×3 (02:17→17:30)
[2016-12-01] MEDS: NOREPINEPHRINE 4 MG in D5W 250 ML (IVPB) 250 ML IV SCH ×2 (02:47→08:23)
[2016-12-01 04:39] LABS: ABG BASE EXCESS 0.8 MMOL/L (-2.5-2.5); ABG HCO3 25 MMOL/L (23-27); ABG OXYGEN SATURATION 84 % (94-100); ABG PCO2 39 MMHG (35-45); ABG PH 7.42 (7.37-7.43); ABG PO2 44 MMHG (79-93); ABG TCO2 26.4 MMOL/L (21.0-31.0); BASOPHILS % (AUTO) 0 % (0-10); EOSINOPHILS % (AUTO) 0 % (0-10); LYMPHOCYTES # (AUTO) 0.7 X 10^3 (1.0-4.0); LYMPHOCYTES % (AUTO) 5 % (12-44); MEAN CORPUSCULAR HEMOGLOBIN 31 PG (25-34); MEAN CORPUSCULAR HGB CONC 33 G/DL (32-36); MEAN CORPUSCULAR VOLUME 96 FL (80-99); MEAN PLATELET VOLUME 10.5 FL (7.4-10.4); MONOCYTES # (AUTO) 1.2 X 10^3 (0.0-1.0); MONOCYTES % (AUTO) 9 % (0-12); NEUTROPHILS # (AUTO) 11.9 X 10^3 (1.8-7.8); NEUTROPHILS % (AUTO) 86 % (42-75); PLATELET COUNT 243 10^3/uL (130-400); RED BLOOD COUNT 2.81 10^6/uL (4.35-5.85); RED CELL DISTRIBUTION WIDTH 13.6 % (10.0-14.5); WHITE BLOOD COUNT 13.8 10^3/uL (4.3-11.0)
[2016-12-01 04:40] LABS: ALLENS TEST ART LINE
[2016-12-01 04:56] LABS: ANION GAP 12 MMOL/L (5-14); BLOOD UREA NITROGEN 47 MG/DL (7-18); BUN/CREATININE RATIO 16; CALCIUM 7.8 MG/DL (8.5-10.1); CARBON DIOXIDE 21 MMOL/L (21-32); CHLORIDE 104 MMOL/L (98-107); GFR ESTIMATED 21; GLUCOSE 173 MG/DL (70-105); MAGNESIUM 1.9 MG/DL (1.8-2.4); POTASSIUM 4.7 MMOL/L (3.6-5.0); SODIUM 137 MMOL/L (135-145)
[2016-12-01 05:04] LABS: TROPONIN I < 0.30 NG/ML (<0.30)
[2016-12-01] MEDS: KCL 20 MEQ TAB (K-DUR) PO SCH (05:39)
[2016-12-01] MEDS: POTASSIUM CL 10MEQ/50ML IVPB 50 ML IV SCH (05:39)
[2016-12-01] MEDS: MAGNESIUM 1 GM/100 ML IVPB 100 ML IV SCH (05:39)
[2016-12-01 05:50] LABS: BAND NEUTROPHILS 0 %; BASOPHILS % (MANUAL) 0 %; EOSINOPHILS % (MANUAL) 0 %; LYMPHOCYTES % (MANUAL) 3 %; NEUTROPHILS % (MANUAL) 92 %; POIKILOCYTOSIS SLIGHT
[2016-12-01 05:51] LABS: HYPOCHROMASIA SLIGHT
[2016-12-01] MEDS: KCL 10 MEQ TAB (MICRO K) PO SCH ×2 (06:05→16:12)
[2016-12-01] MEDS: inSUlin (REGULAR) HUMAN 1 UNIT/0.01 ML (CHARGE PER UNIT) SC SCH ×3 (06:05→17:29)
--- NOTE | 2016-12-01 06:43 | Pulmonary Progress Note ---
Standard Progress Note Progress Notes Late entry for 12/01/16 today is 12/02/16 PT Coded while in CT scanner. Pt very unstable intubated per anesthesia. On levophed Assessment & Plan S/P CODE Blue hypotension probably cardiogenic secondary to code blue in CT scanner. bradycardia -change levophed to dopamine Acute respiratory failure -ventilator therapy Hematuria s/p cystoscopy Dyspnea - PRN treatments -ICU monitoring -CT scan shows scant fluid. no infiltrates GILLIAN AFib- chronic currently controlled CHF - stable SHEILA HARO DO Dec 01, 2016 06:43
--- NOTE | 2016-12-01 06:56 | Pulmonary Progress Note ---
Subjective Subjective/Events-last exam Pt is looking much better today. Exam Exam Vital Signs Date Time Temp Pulse Resp B/P (MAP) Pulse Ox O2 Delivery O2 Flow Rate FiO2 12/01/16 06:06 80 20 95 30 12/01/16 05:00 85 27 141/80 95 Mechanical Ventilator 30.00 90/43 12/01/16 04:02 81 20 97 40 12/01/16 04:00 Mechanical Ventilator 40 12/01/16 04:00 84 15 109/54 97 Mechanical Ventilator 30.00 102/69 12/01/16 04:00 96.0 12/01/16 03:00 82 13 111/55 97 Mechanical Ventilator 40.00 108/64 12/01/16 02:06 80 20 96 40 12/01/16 02:00 80 15 124/57 97 Mechanical Ventilator 40.00 116/70 12/01/16 01:12 84 11 117/55 96 Mechanical Ventilator 40.00 93/64 12/01/16 01:00 84 12/01/16 00:00 97.0 12/01/16 00:00 87 19 120/54 96 Mechanical Ventilator 40.00 110/66 12/01/16 00:00 Mechanical Ventilator 40 11/30/16 23:52 87 20 96 40 11/30/16 23:00 90 19 116/51 91 Mechanical Ventilator 40.00 103/68 11/30/16 22:00 92 20 130/56 95 Mechanical Ventilator 40.00 114/71 11/30/16 21:54 89 20 97 50 11/30/16 21:00 89 17 112/51 91 Mechanical Ventilator 50.00 99/66 11/30/16 20:13 90 20 99 60 11/30/16 20:00 98.7 90 21 106/49 92 Mechanical Ventilator 50.00 99/57 11/30/16 20:00 Mechanical Ventilator 60 11/30/16 19:00 90 22 105/48 98 Mechanical Ventilator 60.00 98/61 11/30/16 19:00 90 11/30/16 18:23 86 24 100 80 11/30/16 18:00 89 31 95/59 97 Mechanical Ventilator 90.00 11/30/16 17:00 89 16 100/69 97 Mechanical Ventilator 90.00 11/30/16 16:15 Mechanical Ventilator 80 11/30/16 16:11 97 24 99 90 11/30/16 16:00 97.8 Mechanical Ventilator 90.00 11/30/16 16:00 93 27 103/65 99 Mechanical Ventilator 90.00 11/30/16 15:00 91 30 110/70 96 Mechanical Ventilator 50.00 11/30/16 14:35 96 18 100 100 11/30/16 14:00 91 20 92/60 97 Mechanical Ventilator 50.00 11/30/16 13:23 100 11/30/16 13:00 76 11/30/16 13:00 86 33 106/75 100 Mechanical Ventilator 50.00 11/30/16 12:40 98.7 Mechanical Ventilator 50.00 11/30/16 12:15 Mechanical Ventilator 50 11/30/16 12:14 73 19 92 50 11/30/16 11:00 89/56 Nasal Cannula 2.00 11/30/16 10:00 85 26 91/61 97 Nasal Cannula 2.00 11/30/16 09:32 98.5 11/30/16 09:00 90 29 95/61 95 Nasal Cannula 2.00 11/30/16 08:39 2.00 11/30/16 08:15 94 Nasal Cannula 2.00 11/30/16 08:10 100.5 93 27 109/65 95 Nasal Cannula 2.00 11/30/16 07:00 76 11/30/16 07:00 92 22 110/87 90 NIV/CPAP 2.00 I & O 12/01/16 07:00 Intake Total 5144 ml Output Total 5100 ml Balance 44 ml General Appearance: No Apparent Distress, WD/WN HEENT: PERRL/EOMI, TMs Normal, Normal ENT Inspection, Pharynx Normal Neck: Full Range of Motion, Normal Inspection, Non Tender Respiratory: Chest Non Tender, Normal Breath Sounds, No Accessory Muscle Use, No Respiratory Distress, Decreased Breath Sounds Cardiovascular: Regular Rate, Rhythm, No Edema, No Gallop Gastrointestinal: normal bowel sounds, non tender, soft, no organomegaly, no pulsatile mass Extremity: Normal Capillary Refill, Normal Inspection, Normal Range of Motion Neurologic/Psychiatric: Alert, Oriented x3 Skin: Normal Color, Cool Results Lab Laboratory Tests 11/30/16 03:45 11/30/16 12:05 12/01/16 04:30 Assessment/Plan Assessment/Plan S/P CODE Blue -DDimer only 14 and negative bilateral LE dopplers hypotension probably cardiogenic secondary to code blue in CT scanner. bradycardia - levophed gtt -titrate to D/C if possible Acute respiratory failure -ventilator- will change to SIMV -check weaning parameters Hematuria s/p cystoscopy Dyspnea - PRN treatments -ICU monitoring -CT scan shows scant fluid. no infiltrates Acute renal failure -IVF, monitor GILLIAN AFib- chronic currently controlled -D/w Dr. Veloz he will let us know after seeing patient today if it is ok to use anticoagulation CHF - stable Clinical Quality Measures DVT/VTE Risk/Contraindication: Risk Factor Score Per Nursin RFS Level Per Nursing on Admit: 4+=Very High SHEILA HARO DO Dec 01, 2016 06:56
[2016-12-01 07:01] LABS: BILIRUBIN,URINE NEGATIVE (NEGATIVE); KETONES,URINE NEGATIVE (NEGATIVE); LEUKOCYTE ESTERASE ,URINE 1+ (NEGATIVE); NITRITE,URINE NEGATIVE (NEGATIVE); PH,URINE 5 (5-9); PROTEIN,URINE 1+ (NEGATIVE); UROBILINOGEN,URINE NORMAL (NORMAL)
[2016-12-01 07:14] LABS: SQUAMOUS EPITHELIAL CELL,UR 0-2 /HPF
[2016-12-01] MEDS: ALLOPURINOL 100 MG (ZYLOPRIM) TAB PO SCH ×2 (07:40→17:20)
[2016-12-01] MEDS: CARVEDILOL 12.5 MG (COREG) TABLET PO SCH ×2 (07:40→21:00)
[2016-12-01] MEDS: OXYBUTYNIN (DITROPAN) 5 MG TAB PO SCH ×3 (07:40→21:00)
[2016-12-01] MEDS: GABAPENTIN 100 MG (NEURONTIN) CAP PO SCH ×3 (07:40→21:00)
[2016-12-01] MEDS: lisINopril 20 MG (ZESTRIL) TAB PO SCH (07:43)
--- NOTE | 2016-12-01 07:47 | Diagnostic Imaging Report ---
INDICATION: Respiratory distress. 0503 hrs. Since the study of one day earlier, there has been an overall improvement in airspace disease in the right lung. Mild diffuse residual airspace disease is seen which may be due to edema or pneumonitis. Endotracheal tube is in place with tip extending below the thoracic inlet. No pneumothorax is identified. IMPRESSION: Improving aeration of the right lung with residual edema and/or pneumonitis bilaterally. Endotracheal tube extends below the thoracic inlet. Dictated by: Dictated on workstation # [id number]
[2016-12-01 08:54] LABS: ABG BASE EXCESS 1.1 MMOL/L (-2.5-2.5); ABG HCO3 26 MMOL/L (23-27); ABG OXYGEN SATURATION 89 % (94-100); ABG PCO2 40 MMHG (35-45); ABG PH 7.41 (7.37-7.43); ABG PO2 52 MMHG (79-93); ABG TCO2 26.9 MMOL/L (21.0-31.0)
--- NOTE | 2016-12-01 08:55 | Physical Therapy Progress Note ---
Therapy Progress Note Patient continues on vent. PT will assess when medically stable and off ventilator. JESSICA ARGUELLO PT Dec 01, 2016 08:54
[2016-12-01 09:06] LABS: ALLENS TEST ART LINE
[2016-12-01] MEDS: FUROSEMIDE 40 MG/4 ML INJ (LASIX) IVP SCH (09:13)
[2016-12-01] MEDS: PANTOPRAZOLE 40 MG/10 ML (PROTONIX) VIAL IV SCH (09:13)
--- NOTE | 2016-12-01 09:27 | Cardiology Progress Note ---
Cardiology SOAP Progress Note Subjective: I saw him when he was just extubated. Not complaining of any significant cardiac symptoms. Objective: I&O/Vital Signs Vital Sign - Last 12Hours 12/01/16 12/01/16 12/01/16 12/01/16 04:00 04:00 04:00 04:02 Temp 96.0 Pulse 84 81 Resp 15 20 B/P (MAP) 109/54 102/69 Pulse Ox 97 97 O2 Delivery Mechanical Ventilator Mechanical Ventilator O2 Flow Rate 30.00 FiO2 40 40 12/01/16 12/01/16 12/01/16 12/01/16 05:00 06:00 06:06 06:30 Pulse 85 87 80 77 Resp 27 19 20 12 B/P (MAP) 141/80 123/61 90/43 107/68 Pulse Ox 95 95 95 96 O2 Delivery Mechanical Ventilator Mechanical Ventilator O2 Flow Rate 30.00 30.00 FiO2 30 30 12/01/16 12/01/16 12/01/16 12/01/16 07:00 07:05 08:30 09:52 Temp 96.0 96.0 Pulse 79 77 81 Resp 12 10 B/P (MAP) 121/52 113/74 Pulse Ox 96 98 O2 Delivery NIV/Bilevel O2 Flow Rate 35.00 12/01/16 12/01/16 12/01/16 09:55 12:35 14:01 Pulse 84 76 Resp 12 17 Pulse Ox 96 94 94 O2 Flow Rate 40.00 35.00 10.00 Intake and Output 12/01/16 00:00 Intake Total 3874 ml Output Total 2200 ml Balance 1674 ml Weight (Pounds): 250 Weight (Ounces): 4.0 Weight (Calculated Kilograms): [id number] Constitutional: No appears stated age, No PERRL, No well-developed, No well- nourished, other (Just extubated) Respiratory: No accessory muscle use, No respiratory distress, No chest tender , No chest expansion is symmetric, No chest is bilaterally symmetric, No lungs clear to percussion, No lungs clear to auscultation, No crackles, rhonchi, No rales, No stridor, No wheezing, No pleural rub, No other Cardiovascular: No regular rate-rhythm, irregularly irregular, No extra beats, No parasternal heave is noted, No JVD, No edema, No bradycardia, No tachycardia , No point of maximal impulse, No cardiac thrills are palpable, No S1 and S2, No gallop/S3, No gallop/S4, No diastolic murmur, No systolic murmur, No friction rub, No click, No other Gastrointestional: No tender, No soft, No round, No distended, No pulsatile mass, No organomegaly, No guarding, No rebound, No tenderness, No hernia, No mass, No audible bowel sounds, No abnormal bowel sounds, No abdominal bruits, No spleenomegaly, No other Extremities: No normal range of motion, No non-tender, No normal inspection, No pedal edema, No calf tenderness, No normal capillary refill, No pelvis stable , No calf tenderness, No inflammation, No pedal edema, No slow capillary refill , No swelling, No other, No abrasion, No clubbing, No cyanosis, No ecchymosis, No laceration, No no lower extremity edema bilateral, No significant edema, No tenderness, No wound Neurologic/Psychiatric: No asbestos wire finisher II-XII nml as tested, No no motor/sensory deficits, No alert, No normal mood/affect, No oriented x 3, No abnormal cerebellar tests, No abnormal asbestos wire finisher II-XII, No abnormal gait, No aphasia, No EOM palsy, No facial droop, No motor weakness, No sensory deficit, No depressed affect, No disoriented x 3, No other, No grossly intact, No power is 5/5 both on sides Skin: No normal color, No warm/dry, No cyanosis, No cool, No diaphoresis, No damp, No ecchymosis, No jaundice, No mottled, No pallor, No rash, No tattoos/ piercings, No ulcerations, No rash on exposed areas, No ulcerations on exposed areas, No other Results/Procedures: Labs Laboratory Tests 11/30/16 16:25: Blood Gas Puncture Site ART LINE, Blood Gas Patient Temperature 97.7, Arterial Blood pH 7.38, Arterial Blood Partial Pressure CO2 43, Arterial Blood Partial Pressure O2 57L, Arterial Blood HCO3 25, Arterial Blood Total CO2 26.1, Arterial Blood Oxygen Saturation 91L, Arterial Blood Base Excess 0.1, Parish Test NA, Blood Gas Ventilator Setting YES, Blood Gas Inspired Oxygen 90% 11/30/16 23:49: Glucometer 169H 12/01/16 00:10: Troponin I < 0.30 12/01/16 04:30: Blood Gas Puncture Site ARTLINE, Blood Gas Patient Temperature 96.0, Arterial Blood pH 7.42, Arterial Blood Partial Pressure CO2 39, Arterial Blood Partial Pressure O2 44L, Arterial Blood HCO3 25, Arterial Blood Total CO2 26.4, Arterial Blood Oxygen Saturation 84L, Arterial Blood Base Excess 0.8, Parish Test ART LINE, Blood Gas Ventilator Setting YES, Blood Gas Inspired Oxygen 30%, Troponin I < 0.30, White Blood Count 13.8H, Red Blood Count 2.81L, Hemoglobin 8.8L, Hematocrit 27L, Mean Corpuscular Volume 96, Mean Corpuscular Hemoglobin 31 , Mean Corpuscular Hemoglobin Concent 33, Red Cell Distribution Width 13.6, Platelet Count 243, Mean Platelet Volume 10.5H, Neutrophils (%) (Auto) 86H, Lymphocytes (%) (Auto) 5L, Monocytes (%) (Auto) 9, Eosinophils (%) (Auto) 0, Basophils (%) (Auto) 0, Neutrophils # (Auto) 11.9H, Lymphocytes # (Auto) 0.7L, Monocytes # (Auto) 1.2H, Eosinophils # (Auto) 0.0, Basophils # (Auto) 0.0, Neutrophils % (Manual) 92, Lymphocytes % (Manual) 3, Monocytes % (Manual) 5, Eosinophils % (Manual) 0, Basophils % (Manual) 0, Band Neutrophils 0, Hypochromasia SLIGHT, Poikilocytosis SLIGHT, D-Dimer 14.42H, Sodium Level 137, Potassium Level 4.7, Chloride Level 104, Carbon Dioxide Level 21, Anion Gap 12, Blood Urea Nitrogen 47H, Creatinine 2.90H, Estimat Glomerular Filtration Rate 21 , BUN/Creatinine Ratio 16, Glucose Level 173H, Calcium Level 7.8L, Magnesium Level 1.9 12/01/16 06:40: Lactic Acid Level 0.77 12/01/16 06:50: Urine Color YELLOW, Urine Clarity CLEAR, Urine pH 5, Urine Specific [place] 1.010L, Urine Protein 1+H, Urine Glucose (UA) NEGATIVE, Urine Ketones NEGATIVE, Urine Nitrite NEGATIVE, Urine Bilirubin NEGATIVE, Urine Urobilinogen NORMAL, Urine Leukocyte Esterase 1+H, Urine RBC (Auto) 5+H, Urine RBC 2-5H, Urine WBC 2- 5, Urine Squamous Epithelial Cells 0-2, Urine Crystals NONE, Urine Bacteria FEWH , Urine Casts NONE, Urine Mucus NEGATIVE, Urine Culture Indicated YES 12/01/16 08:46: Blood Gas Puncture Site LT RAD, Blood Gas Patient Temperature 96.0, Arterial Blood pH 7.41, Arterial Blood Partial Pressure CO2 40, Arterial Blood Partial Pressure O2 52L, Arterial Blood HCO3 26, Arterial Blood Total CO2 26.9, Arterial Blood Oxygen Saturation 89L, Arterial Blood Base Excess 1.1, Parish Test ART LINE, Blood Gas Ventilator Setting YES, Blood Gas Inspired Oxygen 30% 12/01/16 12:05: Troponin I < 0.30 12/01/16 12:37: Glucometer 110 Microbiology 11/30/16 Gram Stain - Final, Resulted 11/30/16 Sputum Culture - Preliminary, Resulted No growth A/P: Assessment/Dx: gross hematuria, Chronic atrial fibrillation, Congestive heart failure, Cardiorespiratory arrest Plan: Cardiorespiratory arrest: Chest examination reveals rhonchi. I recommended 80 mg of IV Lasix. CT chest does not show any significant pulmonary edema. Echocardiogram was repeated which is a technically difficult study due to being on ventilator but it does show normal EF, moderate mitral regurgitation and mild aortic stenosis. These echocardiographic findings are similar to the echocardiogram done before surgery. BNP is mildly elevated. All of this does not suggest florid congestive heart failure or significant valvular heart disease. Other causes of cardiorespiratory arrest need to be considered including pulmonary embolism. Possible pulmonary embolism: Significantly elevated d-dimer. Echocardiogram shows mild RV enlargement. Discuss with Dr. Londono will start the patient on low molecular weight heparin renal dose and plan to discharged on PE dose Xarelto. Atrial fibrillation: Patient has chronic atrial fibrillation. Xarelto when okay with urology hypertension: was hypotensive when i saw him. hold amlodipine chronic kidney disease: Creatinine 2.46, GFR 25. Renal follow up as outpatient will continue to follow Thank you for your consultation. Please call me if you have any questions. Samina Mathias MD, FACP, FACC, FSCAI, FHRS, CCDS Interventional Cardiology Cardiac Electrophysiology Vascular Medicine and Endovascular Interventions Esvin MATHIAS MD Dec 01, 2016 9:27 am
--- NOTE | 2016-12-01 09:28 | Occ Therapy Progress Note ---
Therapy Progress Note 912 Pt still on vent and appears sedated. Will continue to follow until able to participate in OT evaluation. LUAN COURTNEY OT Dec 01, 2016 09:28
--- NOTE | 2016-12-01 09:59 | Progress Note-Urology ---
Progress Note-Urology Progress Notes/Assess & Plan Progress/Assessment & Plan PATIENT EXTUBATED. ALERT AND RESPONSIVE. LABS NOTED. URINE CLEAR AND WALLACE OFF CBI. OK TO START ANTICOAGULATION RX Final Diagnosis GROSS HEMATURIA RESOLVED LISSY SNYDER MD Dec 01, 2016 9:59 am
--- NOTE | 2016-12-01 10:01 | Progress Note-Urology ---
Progress Note-Urology Progress Notes/Assess & Plan Progress/Assessment & Plan I WILL BE OFF THE NEXT 3 DAYS HOWEVER ACCESSIBLE BY PHONE. DRS TAHIR, ELIZABET, AND EULALIA WILL SEE PATIENT. NO UROLOGICAL INTERVENTION FOR NOW UNLESS HEMATURIA RECURS. Final Diagnosis GROSS HEMATURIA RESOLVED LISSY SNYDER MD Dec 01, 2016 10:01 am
--- NOTE | 2016-12-01 10:59 | Consultation-Hospitalist ---
HPI History of Present Illness: HPI/Chief Complaint CC: Gross Hematuria HPI: [id number] pt of Dr[address] Calvert's [place] [facility] transferred [place] [facility] [place] cystoscopy to pursue gross hematuria at higher level of care facility. Dr. Londono saw pt ordered CT scan due to SOB and during CT scan pt went into respiratory failure, Code blue called and pt was intubated. WBC 13.8, Hgb 8.8, ABG yesterday 7.28/56/68 today 7.41/40/52. CXR showed improvement and he is currently being extubated Dr. Londono Review: Pt is ready for extubation Pt may have PE. Pt has A-fib, and Dr. Veloz was consulted regarding anticoagulation. Dr. Veloz will see pt today. Pt may require BiPAP post extubation. There was no tumor. Dr. Veloz review: Dr. Veloz states that anti-coagulation is feasible, but urine will need to be monitored. marketing database consultant: Cystoscopy performed two days ago, but results are pending. Patient Interview: Dr. Macario informs pt regarding extubation. Pt is alert and confirms that Dr. Calvert is PCP. Physical exam stable. Scribed by Isauro Henley under the direct supervision of Dr. Macario. Source: patient Exam Limitations: clinical condition (patient intubated) Date Seen 12/01/16 Attending Physician Gabriel Veloz MD PCP Patricia Calvert MD Referring Physician Date of Admission Nov 28, 2016 at 10:35 Home Medications & Allergies Home Medications Reviewed patient Home Medication Reconciliation Form Allergies Allergies Coded Allergies No Known Drug Allergies (Unverified11/28/16) Past Agmymmd-Epswwp-Rfhdpk Hx Patient Social History Alcohol Use: Denies Use Recreational Drug Use: No Smoking Status: Former Smoker Type Used: Cigarettes Physical Abuse Screen: No Sexual Abuse: No Recent Foreign Travel: No Contact w/other who traveled: No Recent Hopitalizations: Yes (HEMATURIA IN [place]) Recent Infectious Disease Expo: No Seasonal Allergies Seasonal Allergies: No Surgeries HX Surgeries: Yes (INGUINAL HERNIA REPAIR, RIGHT TOTAL HIP) Respiratory Hx Respiratory Disorders: Yes (USES CPAP) Respiratory Disorders: Sleep Apnea Cardiovascular Hx Cardiovascular Disorders: Yes ("ONE OF VALVES DOESNT WORK RIGHT", PT DIDNT REPORT CHF OR AFIB, DX ) Cardiac Disorders: Atrial Fibrillation Neurological Hx Neurological Disorders: No Reproductive System Hx Reproductive Disorders: No Sexually Transmitted Disease: No HIV/AIDS: No Genitourinary Hx Genitourinary Disorders: Yes (PROSTATE CA) Genitourinary Disorders: Benign Prostatic Hyperpl, Prostate Problems Gastrointestinal Hx Gastrointestinal Disorders: Yes (TAKES OMEPRAZOLE) Gastrointestinal Disorders: Gastroesophageal Reflux Musculoskeletal Hx Musculoskeletal Disorders: Yes Musculoskeletal Disorders: Gout HEENT HX ENT Disorders: Yes (GLASSES, SINUS PROBLEMS, PARTIAL DENTURE) Loss of Vision: Bilateral Hearing Impairment: Denies Cancer Hx Cancer: Yes (RADIATION [place] FOR PROSTATE CANCER) Cancer: Prostate Psychosocial Hx Psychiatric Problems: No Integumentary HX Skin/Integumentary Disorder: No Blood Transfusions Hx Blood Disorders: No Adverse Reaction to a Blood Tr: No Review of Systems ROS-Unable to Obtain: unable to ascertain he is intubated Constitutional: see HPI Physical Exam Physical Exam Vital Signs Vital Sign - Last 12Hours 11/28/16 11/28/16 11/30/16 11:00 14:42 12:14 Temp 97.8 Pulse 94 Resp 24 B/P (MAP) 139/87 Pulse Ox 92 O2 Delivery Room Air O2 Flow Rate 4.00 FiO2 50 Capillary Refill : General Appearance: No Apparent Distress, WD/WN, Chronically ill, Obese Eyes: Bilateral Eye Normal Inspection, Bilateral Eye PERRL HEENT: PERRL/EOMI, Other (endotracheal tube in place) Neck: Full Range of Motion, Normal Inspection, Non Tender, Supple, Carotid Bruit Respiratory: Chest Non Tender, Lungs Clear, No Accessory Muscle Use, No Respiratory Distress, Decreased Breath Sounds Cardiovascular: Regular Rate, Rhythm, No Edema, No Gallop, No JVD, No Murmur, Normal Peripheral Pulses Gastrointestinal: Normal Bowel Sounds, No Organomegaly, No Pulsatile Mass, Non Tender, Soft Back: Normal Inspection, No CVA Tenderness, No Vertebral Tenderness Extremity: Normal Capillary Refill, Normal Inspection, Normal Range of Motion, Non Tender, No Calf Tenderness, No Pedal Edema Neurologic/Psychiatric: Alert, No Motor/Sensory Deficits, Normal Mood/Affect, Other (patient intubated appears to be oriented) Skin: Normal Color, Warm/Dry Lymphatic: No Adenopathy Results Results/Procedures Lab Laboratory Tests 11/30/16 03:45 11/30/16 12:05 12/01/16 04:30 Assessment/Plan Admission Diagnosis Assessment: Status post respiratory arrest requiring intubation and CT scanner room 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 Veloz will see pt regarding anti-coagulation and after he assessed the patient he agreed for Hep gtts and will monitor closely Extubation with BiPAP for 24 hours to increase chance of success Treat GILLIAN Clinical Quality Measures DVT/VTE Risk/Contraindication: Risk Factor Score Per Nursin RFS Level Per Nursing on Admit: 4+=Very High PASHA MACARIO DO Dec 01, 2016 10:59
--- NOTE | 2016-12-01 11:46 | ECHOCARDIOGRAPHY REPORT ---
PROCEDURE PHYSICIAN: PATRICIA MCNEAL DATE OF PROCEDURE: 11/30/2016 TWO DIMENSIONAL ECHOCARDIOGRAM REPORT PRIMARY PHYSICIAN: OTHER PHYSICIAN: REFERRING PHYSICIAN: ORDERING PHYSICIAN: Dr. Londono ATTENDING PHYSICIAN: Dr. Veloz FAMILY PHYSICIAN: READING PHYSICIAN: INDICATION FOR THE PROCEDURE: Post cardiac arrest. MEASUREMENTS DERIVED VALUES LV DIAMETER (LAX) NORMALS NORMALS Diastolic (3.6-5.2) Eject. Fract. (60%+/-6%) Systolic (2.3-3.9) Diastolic Vol. % Shortening (0.22-0.42) Systolic Vol. Aortic Root IVS THICKNESS Diastolic (0.6-1.1) LVPW THICKNESS Diastolic (0.6-1.1) LA DIAMETER Systolic (2.1-3.7) FINDINGS: 1. This is a technically difficult study since the patient is on a ventilator. 2. Atrial fibrillation. 3. Left atrial dimension is not well visualized. 4. Left ventricular systolic function is 60% with no wall motion abnormalities. Concentric LVH is noted. 5. There is no wall motion abnormality. 6. There seems to be mild RV enlargement. However, it is difficult to accurately delineate RV function. 7. There is no evidence of pericardial effusion. 8. Diastolic evaluation was not performed. 9. IVC is not well visualized. VALVULAR STRUCTURE OF THE HEART: There is moderate mitral regurgitation. Tricuspid regurgitation is mild. RVSP is 18 mmHg. Aortic valves are thickened with mild aortic stenosis. Max gradient is 18 mmHg. Aortic valve area by VTI is 2.1 sq cm. CONCLUSION: 1. Technically difficult study due the patient being on a ventilator. 2. LVEF is normal. 3. Moderate mitral regurgitation. 4. Mild aortic stenosis. 5. No pericardial effusion and normal PA pressure. 6. Based on echocardiogram the patient's cardiac condition is no different from earlier echocardiogram, which was done 48 hours earlier. Job ID: [id number] Dictated Date: 11/30/2016 17:31:00 Salt Grinder Date: 12/01/2016 11:35:55 / karma
[2016-12-01] MEDS: ENOXAPARIN 100 MG/1 ML (LOVENOX) SYR SC SCH (12:34)
[2016-12-01] MEDS ORDERED: PROPOFOL DRIP (ICU) 100 ML IV ONE (12:37)
[2016-12-01] MEDS: DOPamine DRIP 250 ML IV SCH (12:45)
[2016-12-01] MEDS ORDERED: VANCOMYCIN 1500 MG/NS 500 ML IVPB IV SCH ×2 (13:00)
[2016-12-01] MEDS: TERAZOSIN 5 MG (HYTRIN) CAPSULE PO SCH (21:00)
[2016-12-02] VITALS (20 sets, daily range): BP systolic 105–156; BP diastolic 55–81
[2016-12-02] MEDS: inSUlin (REGULAR) HUMAN 1 UNIT/0.01 ML (CHARGE PER UNIT) SC SCH ×5 (01:05→18:12)
[2016-12-02] MEDS: PIPERACILLIN SODIUM/TAZOBACTAM 4.5 GM in NS (IVPB) 100 ML IV SCH ×3 (01:40→17:30)
[2016-12-02] MEDS: NS IV 1000 ML 1,000 ML IV SCH ×2 (01:41→12:33)
[2016-12-02] MEDS: RT-ALBUTEROL/IPRATROPIUM 3 ML (DUONEB) VIAL INH SCH ×4 (02:42→20:19)
[2016-12-02 04:27] LABS: ABG BASE EXCESS 0.1 MMOL/L (-2.5-2.5); ABG HCO3 24 MMOL/L (23-27); ABG OXYGEN SATURATION 96 % (94-100); ABG PCO2 39 MMHG (35-45); ABG PH 7.41 (7.37-7.43); ABG PO2 68 MMHG (79-93); ABG TCO2 25.6 MMOL/L (21.0-31.0); ALLENS TEST ART LINE
[2016-12-02 04:52] LABS: BASOPHILS % (AUTO) 0 % (0-10); EOSINOPHILS # (AUTO) 0.2 10^3/uL (0.0-0.3); EOSINOPHILS % (AUTO) 2 % (0-10); LYMPHOCYTES # (AUTO) 0.7 X 10^3 (1.0-4.0); LYMPHOCYTES % (AUTO) 7 % (12-44); MEAN CORPUSCULAR HEMOGLOBIN 31 PG (25-34); MEAN CORPUSCULAR HGB CONC 32 G/DL (32-36); MEAN CORPUSCULAR VOLUME 96 FL (80-99); MEAN PLATELET VOLUME 10.6 FL (7.4-10.4); MONOCYTES % (AUTO) 11 % (0-12); NEUTROPHILS # (AUTO) 7.2 X 10^3 (1.8-7.8); NEUTROPHILS % (AUTO) 80 % (42-75); PLATELET COUNT 229 10^3/uL (130-400); RED BLOOD COUNT 2.72 10^6/uL (4.35-5.85); RED CELL DISTRIBUTION WIDTH 13.7 % (10.0-14.5)
[2016-12-02] MEDS: KCL 20 MEQ TAB (K-DUR) PO SCH (05:08)
[2016-12-02 05:31] LABS: CALCIUM 7.6 MG/DL (8.5-10.1); CREATININE SERUM 2.91 MG/DL (0.60-1.30); PHOSPHORUS 4.2 MG/DL (2.3-4.7); POTASSIUM 4.2 MMOL/L (3.6-5.0)
[2016-12-02] MEDS: POTASSIUM CL 10MEQ/50ML IVPB 50 ML IV SCH (05:49)
[2016-12-02] MEDS: MAGNESIUM 1 GM/100 ML IVPB 100 ML IV SCH (05:49)
--- NOTE | 2016-12-02 06:43 | Pulmonary Progress Note ---
Subjective Subjective/Events-last exam PT is doing well off vent. Exam Exam Vital Signs Date Time Temp Pulse Resp B/P (MAP) Pulse Ox O2 Delivery O2 Flow Rate FiO2 12/02/16 06:00 82 17 132/60 100 NIV/Bilevel 40.00 108/66 12/02/16 05:00 84 17 134/61 99 NIV/Bilevel 40.00 108/74 12/02/16 04:15 80 15 97 40.00 12/02/16 04:00 82 16 125/59 99 NIV/Bilevel 40.00 106/66 12/02/16 04:00 97.2 12/02/16 04:00 99 NIV/Bilevel 40 12/02/16 03:00 83 19 130/60 100 NIV/Bilevel 40.00 106/68 12/02/16 02:42 80 17 99 40.00 12/02/16 02:00 80 15 125/60 100 NIV/Bilevel 40.00 106/66 12/02/16 01:00 83 12/02/16 01:00 78 17 119/55 99 NIV/Bilevel 40.00 108/64 12/02/16 00:05 81 16 99 40.00 12/02/16 00:00 99 NIV/Bilevel 40 12/02/16 00:00 80 15 122/60 99 NIV/Bilevel 40.00 105/65 12/02/16 00:00 96.9 12/01/16 23:00 80 17 123/58 99 NIV/Bilevel 40.00 98/64 12/01/16 22:00 85 21 118/57 98 NIV/Bilevel 40.00 99/62 12/01/16 21:45 79 15 99 40.00 12/01/16 21:00 76 19 125/56 99 NIV/Bilevel 40.00 102/67 12/01/16 20:00 98.0 80 21 128/59 99 NIV/Bilevel 40.00 12/01/16 20:00 99 NIV/Bilevel 40 12/01/16 20:00 91/61 12/01/16 19:07 79 12/01/16 19:00 80 16 132/56 99 NIV/Bilevel 40.00 104/66 12/01/16 18:52 78 17 97 40.00 12/01/16 18:00 81 18 125/55 97 NIV/Bilevel 40.00 95/61 12/01/16 17:00 75 16 99/58 97 NIV/Bilevel 40.00 95/61 12/01/16 16:27 97.5 82 18 110/55 95 NIV/Bilevel 40.00 95/55 12/01/16 16:05 High Flow NC 10.00 12/01/16 15:00 86 18 118/47 91 Nasal Cannula 10.00 91/60 12/01/16 14:01 94 10.00 12/01/16 14:00 75 15 108/49 100 Nasal Cannula 10.00 90/56 12/01/16 13:00 76 13 115/56 96 Nasal Cannula 10.00 100/64 12/01/16 13:00 73 12/01/16 12:35 76 17 94 35.00 12/01/16 12:30 96.3 Nasal Cannula 10.00 12/01/16 12:15 High Flow NC 10.00 12/01/16 12:00 82 15 133/59 94 NIV/Bilevel 35.00 93/61 12/01/16 11:00 82 17 131/55 96 NIV/Bilevel 35.00 102/56 12/01/16 09:55 84 12 96 40.00 12/01/16 09:52 96.0 81 10 121/52 98 NIV/Bilevel 35.00 113/74 12/01/16 09:00 77 16 154/64 95 Mechanical Ventilator 30.00 113/74 12/01/16 08:30 96.0 12/01/16 08:30 Mechanical Ventilator 30 12/01/16 08:00 73 11 99/46 96 Mechanical Ventilator 30.00 100/63 12/01/16 07:05 77 12 96 12/01/16 07:00 79 12/01/16 07:00 76 17 102/50 99 Mechanical Ventilator 30.00 12/01/16 06:30 77 12 96 30 I & O 12/02/16 07:00 Intake Total 2454 ml Output Total 2350 ml Balance 104 ml General Appearance: No Apparent Distress, WD/WN, Chronically ill, Obese HEENT: PERRL/EOMI, Other (endotracheal tube in place) Neck: Full Range of Motion, Normal Inspection, Non Tender, Supple, Carotid Bruit Respiratory: Chest Non Tender, Lungs Clear, No Accessory Muscle Use, No Respiratory Distress, Decreased Breath Sounds Cardiovascular: Regular Rate, Rhythm, No Edema, No Gallop, No JVD, No Murmur, Normal Peripheral Pulses Gastrointestinal: normal bowel sounds, non tender, soft, no organomegaly, no pulsatile mass Extremity: Normal Capillary Refill, Normal Inspection, Normal Range of Motion, Non Tender, No Calf Tenderness, No Pedal Edema Neurologic/Psychiatric: Alert, No Motor/Sensory Deficits, Normal Mood/Affect, Other (patient intubated appears to be oriented) Skin: Normal Color, Warm/Dry Lymphatic: No Adenopathy Results Lab Laboratory Tests 11/30/16 12:05 12/01/16 04:30 12/02/16 04:20 Assessment/Plan Assessment/Plan S/P CODE Blue questionable PE - Unable to do CTA and has been too unstable for V /Q. PT has Afib so will need anticoagulation regardless of PE or not. Currently on theraputic dose lovenox. Will change to Xarelto prior to discharge. -DDimer only 14 and negative bilateral LE dopplers hypotension probably cardiogenic secondary to code blue in CT scanner. bradycardia - levophed gtt - D/C'd Acute respiratory failure -Pt is doing well off ventilator currently on BiPAP -WIll trial him off BiPAP but continue to use QHS and PRN -IF he is doing well respiratory rosario he can use his home CPAP at night Hematuria s/p cystoscopy Dyspnea - PRN treatments -ICU monitoring -CT scan shows scant fluid. no infiltrates Acute renal failure -IVF, monitor GILLIAN AFib- chronic currently controlled -Lovenox therapeutic dosing CHF - stable Debility- PT/OT Clinical Quality Measures DVT/VTE Risk/Contraindication: Risk Factor Score Per Nursin RFS Level Per Nursing on Admit: 4+=Very High SHEILA HARO DO Dec 02, 2016 06:43
--- NOTE | 2016-12-02 08:24 | Diagnostic Imaging Report ---
Portable upright radiograph of the chest. INDICATION: Post extubation. FINDINGS: There is interval removal of an ET tube and NG tube. The right IJ venous line in the upper SVC is still seen. The heart size is markedly enlarged. There is a right perihilar infiltrate and background vascular congestion. The right perihilar infiltrate appears slightly more prominent compared to the prior study. There are also bibasilar infiltrates or atelectasis. No significant effusion or pneumothorax. IMPRESSION: Marked cardiomegaly with improved vascular congestion. Right perihilar and bibasilar infiltrates. Dictated by: Dictated on workstation # [id number]
--- NOTE | 2016-12-02 09:57 | Physical Therapy Evaluation ---
PT Evaluation-General Medical Diagnosis Admission Date Nov 28, 2016 at 10:35 Medical Diagnosis: Gross Hematuria Onset Date: Nov 28, 2016 Therapy Diagnosis Therapy Diagnosis: generalized weakness/debility Height/Weight Height (Feet): 5 Height (Inches): 9.00 Weight (Pounds): 255 Weight (Ounces): 4.0 Precautions Precautions/Isolations: Fall Prevention, Standard Precautions Referral Physician: Spring Reason for Referral: Evaluation/Treatment Medical History Pertinent Medical History: Atrial Fib, GERD, Heart Failure, HTN Additional Medical History cancer Current History s/p cystoscopy secondary to hematuria respiratory distress requiring vent then transitioned to Bipap and now on NC 8L HF Reviewed History: Yes Social History Home: Single Level Current Living Status: Spouse Prior/Core FIM Prior Level of Function Functional [place] Measure 0=Not Assessed/NA 4=Minimal Assistance 1=Total Assistance 5=Supervision or Setup 2=Maximal Assistance 6=Modified [place] 3=Moderate Assistance 7=Complete [place] Bed Mobility: 6 Transfers (B,C,W/C) (FIM): 6 Gait: 6 uses FWW or cane for mobility PT Evaluation-Current Subjective Patient agrees to PT. Pain Numeric Pain Scale: 5-Moderate Pain Location: Right, Left Location Body Site: Shoulder Pain Description: Chronic Objective Patient Orientation: Person, Time, Situation Problem Solving: Fair Attachments: Oxygen, [place] Catheter, IV ROM/Strength ROM Lower Extremities bilateral LE WFL Strenght Lower Extremities right knee flexion/extension 3/5; hip flexion 3-/5; ankle dorsi/plantarflexion 3 /5 left knee flexion/extension 3/5; hip flexion 3-/5; ankle dorsi/plantarflexion 3/ 5 Integumentary/Posture Integumentary refer to nursing notes Bladder Incontinence: [place] Cath Posture kyphotic Neuromuscular (Tone, Coordination, Reflexes) severely diminished coordination with all mobility Sensory Vision: Wears Glasses Hearing: Impaired Sensation Right Lower Extremit: Intact Sensation Left Lower Extremity: Intact Transfers Functional [place] Measure 0=Not Assessed/NA 4=Minimal Assistance 1=Total Assistance 5=Supervision or Setup 2=Maximal Assistance 6=Modified [place] 3=Moderate Assistance 7=Complete [place] Transfers (B, C, W/C) (FIM): 2 Scootin Supine to/from Sit: 2 Sit to/from Stand: 2 bed t/f WC(FIM only if WC use): 2 sit to stand max assist and with SPT to left to recliner; patient unable to take steps to assist with mobility Gait Mode of Locomotion: Walk Anticipated Mode of Locomotion: Walk Gait Assistive Device: FWW Balance Sitting Static: Fair Sitting Dynamic: Fair Standing Static: Fair Standing Dynamic: Fair Assessment/Needs 86 y.o. male, will benefit from skilled PT to address functional strength and mobility to improve current LOF. Patient presents with severely diminished coordination and functional strength. Patient desires to return to home after recovery. Rehab Potential: Fair Post Rehab Potential-Barriers: age; medical status PT Longterm Goals Dairy Scientist Goals PT Dairy Scientist Goals Time Frame: Dec 16, 2016 Transfers (B,C,W/C) (FIM): 5 Gait (FIM): 2 Gait distance (FIM): 5=242-75 ft Distance: 100' Gait Level of Assist: 5 Gait Assistive Device: FWW PT Plan Problem List Problem List: Activity Tolerance, Functional Strength, Safety, Balance, Gait, Transfer, Bed Mobility Treatment/Plan Treatment Plan: Continue Plan of Care Treatment Plan: Bed Mobility, Education, Functional Activity Aly, Functional Strength, Gait, Safety, Therapeutic Exercise, Transfers Treatment Duration: Dec 16, 2016 # of days/week 6 Visits Per Week: 6 Pt/Family Agrees w/Plan: Yes Safety Risks/Education Patient Education: Transfer Techniques, Safety Issues Teaching Recipient: Patient Teaching Methods: Demonstration, Discussion Response to Teaching: Verbalize Understanding, Return Demonstration Discharge Recommendations Therapy D/C Recommendations: [facility] (TCU/NH) Time/GCodes Time In: 820 Time Out: 850 Total Billed Treatment Time: 30 Total Billed Treatment 1 visit [facility] 30 min JESSICA ARGUELLO PT Dec 02, 2016 09:57
[2016-12-02] MEDS: CARVEDILOL 12.5 MG (COREG) TABLET PO SCH ×2 (10:05→20:11)
[2016-12-02] MEDS: lisINopril 20 MG (ZESTRIL) TAB PO SCH (10:06)
[2016-12-02] MEDS: FUROSEMIDE 40 MG/4 ML INJ (LASIX) IVP SCH (10:07)
[2016-12-02] MEDS: ALLOPURINOL 100 MG (ZYLOPRIM) TAB PO SCH ×2 (10:07→17:30)
[2016-12-02] MEDS: GABAPENTIN 100 MG (NEURONTIN) CAP PO SCH ×3 (10:07→20:11)
[2016-12-02] MEDS: KCL 10 MEQ TAB (MICRO K) PO SCH ×2 (10:07→17:30)
[2016-12-02] MEDS: OXYBUTYNIN (DITROPAN) 5 MG TAB PO SCH ×3 (10:07→20:11)
[2016-12-02] MEDS: PANTOPRAZOLE 40 MG/10 ML (PROTONIX) VIAL IV SCH (10:07)
[2016-12-02] MEDS: LEVOFLOXACIN 500 MG/100 ML IV 100 ML IV SCH (10:08)
--- NOTE | 2016-12-02 10:50 | Progress Note-Hospitalist ---
Progress Note HPI/CC on Admission CC: Gross Hematuria HPI: [id number] pt of Dr. Calvert's at [facility] that was transferred from [facility] for cystoscopy to pursue gross hematuria at higher level of care facility. Dr. Londono saw pt ordered CT scan due to SOB and during CT scan pt went into respiratory failure, Code blue called and pt was intubated. WBC 13.8, Hgb 8.8, ABG yesterday 7.28/56/68 today 7.41/40/52. CXR showed improvement and he is currently being extubated Dr. Londono Review: Pt is ready for extubation Pt may have PE. Pt has A-fib, and Dr. Veloz was consulted regarding anticoagulation. Dr. Veloz will see pt today. Pt may require BiPAP post extubation. There was no tumor. Dr. Veloz review: Dr. Veloz states that anti-coagulation is feasible, but urine will need to be monitored. adjustment examiner: Cystoscopy performed two days ago, but results are pending. Patient Interview: Dr. Macario informs pt regarding extubation. Pt is alert and confirms that Dr. Calvert is PCP. Physical exam stable. Scribed by Isauro Henley under the direct supervision of Dr. Macario. 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 ARF on CRI Anemia Plan: Palliative care consult due to prediction of declined status Treat GILLIAN Monitor closely Monitor creatinine Discontinue Levaquin as long as improving on Monday Overall prognosis guarded and advanced age and comorbidities preclude anything that of very grave and poor prognosis PASHA MACARIO DO Dec 02, 2016 10:50
--- NOTE | 2016-12-02 11:10 | Cardiology Progress Note ---
Cardiology SOAP Progress Note Subjective: patient improving. Extubated yesterday. Objective: I&O/Vital Signs Vital Sign - Last 12Hours 12/02/16 12/02/16 12/02/16 12/02/16 01:00 01:00 02:00 02:42 Pulse 78 83 80 80 Resp B/P (MAP) 119/55 125/60 108/64 106/66 Pulse Ox 99 100 99 O2 Delivery NIV/Bilevel NIV/Bilevel O2 Flow Rate 40.00 40.00 40.00 12/02/16 12/02/16 12/02/16 12/02/16 03:00 04:00 04:00 04:00 Temp 97.2 Pulse 83 82 Resp 19 16 B/P (MAP) 130/60 125/59 106/68 106/66 Pulse Ox 100 99 99 O2 Delivery NIV/Bilevel NIV/Bilevel NIV/Bilevel O2 Flow Rate 40.00 40.00 FiO2 40 12/02/16 12/02/16 12/02/16 12/02/16 04:15 05:00 06:00 06:37 Pulse 80 84 82 Resp 17 B/P (MAP) 134/61 132/60 108/74 108/66 Pulse Ox 97 99 100 92 O2 Delivery NIV/Bilevel NIV/Bilevel O2 Flow Rate 40.00 40.00 40.00 8.00 12/02/16 12/02/16 12/02/16 12/02/16 07:00 07:15 09:50 10:10 Temp 98.8 Pulse 85 93 Resp 29 B/P (MAP) 147/60 129/77 Pulse Ox 95 95 O2 Delivery High Flow NC Nasal Cannula O2 Flow Rate 10.00 8.00 8.00 Intake and Output 12/02/16 00:00 Intake Total 615 ml Output Total 1500 ml Balance -885 ml Weight (Pounds): 255 Weight (Ounces): 4.0 Weight (Calculated Kilograms): 115.409030 Constitutional: No appears stated age, No PERRL, No well-developed, No well- nourished, other (Just extubated) Respiratory: No accessory muscle use, No respiratory distress, No chest tender , No chest expansion is symmetric, No chest is bilaterally symmetric, No lungs clear to percussion, No lungs clear to auscultation, No crackles, rhonchi, No rales, No stridor, No wheezing, No pleural rub, No other Cardiovascular: No regular rate-rhythm, irregularly irregular, No extra beats, No parasternal heave is noted, No JVD, No edema, No bradycardia, No tachycardia , No point of maximal impulse, No cardiac thrills are palpable, No S1 and S2, No gallop/S3, No gallop/S4, No diastolic murmur, No systolic murmur, No friction rub, No click, No other Gastrointestional: No tender, No soft, No round, No distended, No pulsatile mass, No organomegaly, No guarding, No rebound, No tenderness, No hernia, No mass, No audible bowel sounds, No abnormal bowel sounds, No abdominal bruits, No spleenomegaly, No other Extremities: No normal range of motion, No non-tender, No normal inspection, No pedal edema, No calf tenderness, No normal capillary refill, No pelvis stable , No calf tenderness, No inflammation, No pedal edema, No slow capillary refill , No swelling, No other, No abrasion, No clubbing, No cyanosis, No ecchymosis, No laceration, No no lower extremity edema bilateral, No significant edema, No tenderness, No wound Neurologic/Psychiatric: No eviscerator II-XII nml as tested, No no motor/sensory deficits, No alert, No normal mood/affect, No oriented x 3, No abnormal cerebellar tests, No abnormal eviscerator II-XII, No abnormal gait, No aphasia, No EOM palsy, No facial droop, No motor weakness, No sensory deficit, No depressed affect, No disoriented x 3, No other, No grossly intact, No power is 5/5 both on sides Skin: No normal color, No warm/dry, No cyanosis, No cool, No diaphoresis, No damp, No ecchymosis, No jaundice, No mottled, No pallor, No rash, No tattoos/ piercings, No ulcerations, No rash on exposed areas, No ulcerations on exposed areas, No other Results/Procedures: Labs Laboratory Tests 12/01/16 17:28: Glucometer 100 12/02/16 01:11: Glucometer 102 12/02/16 04:20: White Blood Count 9.0, Red Blood Count 2.72L, Hemoglobin 8.4L, Hematocrit 26L, Mean Corpuscular Volume 96, Mean Corpuscular Hemoglobin 31, Mean Corpuscular Hemoglobin Concent 32, Red Cell Distribution Width 13.7, Platelet Count 229, Mean Platelet Volume 10.6H, Neutrophils (%) (Auto) 80H, Lymphocytes (%) (Auto) 7L, Monocytes (%) (Auto) 11, Eosinophils (%) (Auto) 2, Basophils (%) (Auto) 0, Neutrophils # (Auto) 7.2, Lymphocytes # (Auto) 0.7L, Monocytes # (Auto) 1.0, Eosinophils # (Auto) 0.2, Basophils # (Auto) 0.0, Blood Gas Puncture Site L EDEN, Blood Gas Patient Temperature 97.0, Arterial Blood pH 7.41, Arterial Blood Partial Pressure CO2 39, Arterial Blood Partial Pressure O2 68L, Arterial Blood HCO3 24, Arterial Blood Total CO2 25.6, Arterial Blood Oxygen Saturation 96, Arterial Blood Base Excess 0.1, Parish Test ART LINE, Blood Gas Ventilator Setting YES, Blood Gas Inspired Oxygen 40% FIO2, Sodium Level 141, Potassium Level 4.2, Chloride Level 108H, Carbon Dioxide Level 22, Anion Gap 11, Blood Urea Nitrogen 47H, Creatinine 2.91H, Estimat Glomerular Filtration Rate 21, BUN/ Creatinine Ratio 16, Glucose Level 90, Calcium Level 7.6L, Phosphorus Level 4.2 , Magnesium Level 1.9 Microbiology 11/30/16 Gram Stain - Final, Resulted 11/30/16 Sputum Culture - Preliminary, Resulted No growth 12/01/16 Urine Culture - Preliminary, Resulted NO GROWTH A/P: Assessment/Dx: gross hematuria s/p cystoscopy, Chronic atrial fibrillation, Congestive heart failure, Cardiorespiratory arrest Plan: Cardiorespiratory arrest: Chest examination reveals rhonchi. I recommended 80 mg of IV Lasix. CT chest does not show any significant pulmonary edema. Echocardiogram was repeated which is a technically difficult study due to being on ventilator but it does show normal EF, moderate mitral regurgitation and mild aortic stenosis. These echocardiographic findings are similar to the echocardiogram done before surgery. BNP is mildly elevated. All of this does not suggest florid congestive heart failure or significant valvular heart disease. Other causes of cardiorespiratory arrest need to be considered including pulmonary embolism. Possible pulmonary embolism: Significantly elevated d-dimer. Echocardiogram shows mild RV enlargement. on full dose Lovenox (with renal adjustment) Atrial fibrillation: Patient has chronic atrial fibrillation. Xarelto when okay with urology h/o hypertension: chronic kidney disease: Creatinine 2.46, GFR 25. Renal follow up as outpatient will continue to follow Thank you for your consultation. Please call me if you have any questions. Samina Mathias MD, FACP, FACC, FSCAI, FHRS, CCDS Interventional Cardiology Cardiac Electrophysiology Vascular Medicine and Endovascular Interventions Esvin MATHIAS MD Dec 02, 2016 11:10 am
[2016-12-02] MEDS ORDERED: TROUGH ORDER-PHARMACY XX NR (12:00)
[2016-12-02] MEDS: ENOXAPARIN 100 MG/1 ML (LOVENOX) SYR SC SCH (12:37)
[2016-12-02] MEDS: DOPamine DRIP 250 ML IV SCH (12:45)
--- NOTE | 2016-12-02 13:52 | Occupational Therapy Eval ---
OT Evaluation-General/PLF Medical Diagnosis Admission Date Nov 28, 2016 at 10:35 Medical Diagnosis: Gross Hematuria Onset Date: Nov 28, 2016 Therapy Diagnosis Therapy Diagnosis: weakness, decr ADL, decr activity tolerance Height/Weight Height (Feet): 5 Height (Inches): 9.00 Weight (Pounds): 255 Weight (Ounces): 4.0 Precautions Precautions/Isolations: Fall Prevention, Standard Precautions Safety Interventions: Reorient-PRN Referral Physician: Spring Referral Reason: Evaluation/Treatment Medical History Pertinent Medical History: Atrial Fib, COPD, GERD, Heart Failure, HTN Additional Medical History Chronic renal failure, hx prostate cancer, BPH, chronic kidney disease, sleep apnea, gout. Current History Had cystoscope on 11-29 and developed respiratory distress. Gross hematuria, possible bladder tumor. Was on a vent and also coded in CT on 11-30-16. Reviewed History: Yes Social History Home: Single Level Current Living Status: Spouse ADL-Prior Level of Function ADL PLOF Comments Pt reported that he was able to take care of himself prior to admission. 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 Pt working hard to breathe and is on 12L O2. Pt demonstrating pursed lip breathing. Appearance Alert, cooperative Mental Status/Objective Patient Orientation: Person, Time (knew year and month) Attachments: Central Line, [place] Catheter, Oxygen, Telemetry Current Glasses/Contacts: Yes Dentures/Partials: Yes (partial) Upper Extremity ROM Grossly WFl bilat except about 30 degrees active flex R shoulder (from old shoulder injury) Upper Extremity Strength Grossly 5/5 bilat except shoulder ADL-Treatment ADL-Current PT eval reported max assist bed mobility and transfer to recliner Functional [place] Measure 0=Not Assessed/NA 4=Minimal Assistance 1=Total Assistance 5=Supervision or Setup 2=Maximal Assistance 6=Modified [place] 3=Moderate Assistance 7=Complete IndependenceIRFPAI Quality Coding Scale 6 Independent with activity with or without an assistive device 5 Patient requires set up or clean up by helper. Patient completes activity by themselves 4 Supervision or touching assist (CGA). [place] provide cues , steadying assist 3 The helper provides less than half the effort to complete the activity 2 The helper provides more than half the effort to complete the activity 1 Dependent. The helper does all the effort to complete an activity 7 Patient refused to complete or attempt activity 9 The patient did not perform the activity before the current illness or injury 88 Not attempted due to Medical conditions or safety concerns Education OT Patient Education: Purpose of tx/functional activities, Rehab process Teaching Recipient: Patient Response to Teaching: Verbalize Understanding OT Gambling Box Person Goals Gambling Box Person Goals Time Frame: Dec 16, 2016 Eating (FIM): 6 Grooming(FIM): 5 Bathing(FIM): 5 Upper Body Dressing(FIM): 5 Lower Body Dressing(FIM): 5 Toileting(FIM): 5 Toilet/Commode Transfer(FIM): 5 Shower Transfer(FIM): 5 Additional Goals: 2-Verbalize Understanding, 3-ImproveStrength/Aly 1=Demonstrate adherence to instructed precautions during ADL tasks. 2=Patient will verbalize/demonstrate understanding of assistive devices/ modifications for ADL. 3=Patient will improve strength/tolerance for activity to enable patient to perform ADL's. OT Education/Plan Problem List/Assessment Assessment: Decreased Activ Tolerance, Dependent Transfers, Impaired Bed Mobility, Impaired Self-Care Skills, Restricted Funct UE ROM Pt would benefit from skilled OT to increase his independence in basic self care to allow him to return home safely with his and decrease caregiver burden. Discharge Recommendations Plan/Recommendations: Continue POC Treatment Plan/Plan of Care Treatment,Training & Education: Yes Patient would benefit from OT for education, treatment and training to promote independence in ADL's, mobility, safety and/or upper extremity function for ADL' s. Plan of Care: ADL Retraining, Functional Mobility, UE Funct Exercise/Act, UE Neuromus Re-Ed/Coord Treatment Duration: Dec 16, 2016 # of days/week 5-6 Visits Per Week: 5-6 Rehab Potential: Fair Time/GCodes Start Time: 13:22 Stop Time: 13:37 Total Time Billed (hr/min): 15 Billed Treatment Time visit, 15 minutes evaluation low intensity LUAN COURTNEY OT Dec 02, 2016 13:52
[2016-12-02] MEDS: NOREPINEPHRINE 4 MG in D5W 250 ML (IVPB) 250 ML IV SCH (17:57)
[2016-12-02] MEDS: TERAZOSIN 5 MG (HYTRIN) CAPSULE PO SCH (20:11)
[2016-12-03] VITALS (31 sets, daily range): BP systolic 87–154; BP diastolic 54–129
[2016-12-03] MEDS: NS IV 1000 ML 1,000 ML IV SCH ×2 (01:53→15:11)
[2016-12-03] MEDS: RT-ALBUTEROL/IPRATROPIUM 3 ML (DUONEB) VIAL INH SCH ×4 (02:10→20:52)
[2016-12-03] MEDS: PIPERACILLIN SODIUM/TAZOBACTAM 4.5 GM in NS (IVPB) 100 ML IV SCH ×3 (02:17→17:18)
[2016-12-03 05:49] LABS: ABG BASE EXCESS -0.7 MMOL/L (-2.5-2.5); ABG HCO3 24 MMOL/L (23-27); ABG OXYGEN SATURATION 92 % (94-100); ABG PCO2 40 MMHG (35-45); ABG PH 7.39 (7.37-7.43); ABG PO2 62 MMHG (79-93); ABG TCO2 24.8 MMOL/L (21.0-31.0)
[2016-12-03 05:50] LABS: ALLENS TEST ART LINE; PATIENT TEMP 98.2
[2016-12-03 06:00] LABS: BASOPHILS % (AUTO) 0 % (0-10); EOSINOPHILS # (AUTO) 0.1 10^3/uL (0.0-0.3); EOSINOPHILS % (AUTO) 1 % (0-10); LYMPHOCYTES # (AUTO) 0.5 X 10^3 (1.0-4.0); LYMPHOCYTES % (AUTO) 4 % (12-44); MEAN CORPUSCULAR HEMOGLOBIN 31 PG (25-34); MEAN CORPUSCULAR HGB CONC 32 G/DL (32-36); MEAN CORPUSCULAR VOLUME 97 FL (80-99); MEAN PLATELET VOLUME 10.5 FL (7.4-10.4); MONOCYTES % (AUTO) 9 % (0-12); NEUTROPHILS # (AUTO) 9.6 X 10^3 (1.8-7.8); NEUTROPHILS % (AUTO) 85 % (42-75); PLATELET COUNT 234 10^3/uL (130-400); RED BLOOD COUNT 2.85 10^6/uL (4.35-5.85); RED CELL DISTRIBUTION WIDTH 13.9 % (10.0-14.5); WHITE BLOOD COUNT 11.2 10^3/uL (4.3-11.0)
[2016-12-03] MEDS: MAGNESIUM 1 GM/100 ML IVPB 100 ML IV SCH (06:00)
[2016-12-03] MEDS: inSUlin (REGULAR) HUMAN 1 UNIT/0.01 ML (CHARGE PER UNIT) SC SCH ×5 (06:00→23:50)
[2016-12-03] MEDS: POTASSIUM CL 10MEQ/50ML IVPB 50 ML IV SCH (06:00)
[2016-12-03] MEDS: KCL 20 MEQ TAB (K-DUR) PO SCH (06:00)
[2016-12-03 06:19] LABS: CREATININE SERUM 3.02 MG/DL (0.60-1.30); MAGNESIUM 1.9 MG/DL (1.8-2.4); PHOSPHORUS 3.6 MG/DL (2.3-4.7); POTASSIUM 4.2 MMOL/L (3.6-5.0)
--- NOTE | 2016-12-03 08:19 | Diagnostic Imaging Report ---
EXAM: CHEST 1 VIEW, AP/PA ONLY INDICATION: Dyspnea. COMPARISON: Chest radiograph 12/02/2016. FINDINGS: Low lung volumes accentuate the cardiomegaly and central pulmonary vascularity. There remains perihilar interstitial and airspace opacities consistent with pulmonary edema. No pneumothorax. Probable small left pleural effusion. No acute osseous findings. Right IJ CVC tip near the confluence of the subclavian and internal jugular veins. IMPRESSION: 1. Persistent pulmonary edema and cardiomegaly. Probable small left pleural effusion. 2. Right IJ CVC tip is in the region of the right IJ and subclavian vein confluence. Dictated by: Dictated on workstation # [id number]
[2016-12-03] MEDS: PANTOPRAZOLE 40 MG/10 ML (PROTONIX) VIAL IV SCH (09:42)
[2016-12-03] MEDS: FUROSEMIDE 40 MG/4 ML INJ (LASIX) IVP SCH (09:42)
[2016-12-03] MEDS: ALLOPURINOL 100 MG (ZYLOPRIM) TAB PO SCH ×2 (09:43→17:18)
[2016-12-03] MEDS: lisINopril 20 MG (ZESTRIL) TAB PO SCH (09:43)
[2016-12-03] MEDS: OXYBUTYNIN (DITROPAN) 5 MG TAB PO SCH ×3 (09:43→21:02)
[2016-12-03] MEDS: KCL 10 MEQ TAB (MICRO K) PO SCH ×2 (09:43→17:18)
[2016-12-03] MEDS: GABAPENTIN 100 MG (NEURONTIN) CAP PO SCH ×3 (09:43→21:01)
[2016-12-03] MEDS: CARVEDILOL 12.5 MG (COREG) TABLET PO SCH ×2 (09:43→21:02)
--- NOTE | 2016-12-03 09:53 | Progress Note-Hospitalist ---
Subjective HPI/CC On Admission CC: Gross Hematuria HPI: [id number] pt [address] Calvert'enrique at [facility] [place] that was transferred from [facility] [place] for cystoscopy to pursue gross hematuria at higher level of care facility. Dr. Londono saw pt ordered CT scan due to SOB and during CT scan pt went into respiratory failure, Code blue called and pt was intubated. WBC 13.8, Hgb 8.8, ABG yesterday 7.28/56/68 today 7.41/40/52. CXR showed improvement and he is currently extubated Date Seen 12/03/16 Subjective/Events-last exam patient is awake and alert denies having any discomfort but appears to be dyspneic with talking chest x-ray shows increased failure. Just received Lasix and his blood pressure medicines for the first time today Review of Systems Pulmonary: Dyspnea Neurological: Weakness Objective Exam Vital Signs Vital Sign - Last 12Hours 11/28/16 11/28/16 11/30/16 11:00 14:42 12:14 Temp 97.8 Pulse 94 Resp 24 B/P (MAP) 139/87 Pulse Ox 92 O2 Delivery Room Air O2 Flow Rate 4.00 FiO2 50 Capillary Refill : General Appearance: Mild Distress, Obese Neck: Limited Range of Motion Respiratory: Lungs Clear, Decreased Breath Sounds Cardiovascular: No Gallop, Irregularly Irregular Gastrointestinal: Non Tender, Soft Extremity: Pedal Edema Neurologic/Psychiatric: Alert, Oriented x3, No Motor/Sensory Deficits Results/Procedures Lab Laboratory Tests 12/03/16 05:40 Assessment/Plan Assessment and Plan Assess & Plan/Chief Complaint Assessment: Status post respiratory arrest requiring intubation-patient still seems to be dyspneic and has fluid overload. 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
[2016-12-03] MEDS: NOREPINEPHRINE 4 MG in D5W 250 ML (IVPB) 250 ML IV SCH ×2 (10:33→20:45)
[2016-12-03] MEDS: DOPamine DRIP 250 ML IV SCH (11:31)
--- NOTE | 2016-12-03 12:08 | Physical Therapy Daily Note ---
PT Daily Note-Current Subjective Nursing reports he has been short of air today and request not to take him out of bed. Transfers Functional [place] Measure 0=Not Assessed/NA 4=Minimal Assistance 1=Total Assistance 5=Supervision or Setup 2=Maximal Assistance 6=Modified [place] 3=Moderate Assistance 7=Complete IndependenceIRFPAI Quality Coding Scale 6 Independent with activity with or without an assistive device 5 Patient requires set up or clean up by helper. Patient completes activity by themselves 4 Supervision or touching assist (CGA). [place] provide cues , steadying assist 3 The helper provides less than half the effort to complete the activity 2 The helper provides more than half the effort to complete the activity 1 Dependent. The helper does all the effort to complete an activity 7 Patient refused to complete or attempt activity 9 The patient did not perform the activity before the current illness or injury 88 Not attempted due to Medical conditions or safety concerns Exercises Supine Ex: Ankle pumps, Quad Set, Glut sets, Heel Slides, Knee to chest, Short Arc Quads, Hip abd/add Supine Reps: 15 exercises with active assist as needed. Patient was participatory. Repositioned in bed post treatment. Assessment Current Status: Good Progress Patient motivated to work and improve function. Limited by medical complexity at this time. Pt will benefit from continued therapy to work on strength, activity tolerance, and functional mobility. PT Health And Wellness Coach Goals Mcc Goals PT Mcc Goals Time Frame: Dec 16, 2016 Transfers (B,C,W/C) (FIM): 5 Gait (FIM): 2 Gait distance (FIM): 0=608-56 ft Distance: 100' Gait Level of Assist: 5 Gait Assistive Device: FWW PT Plan Treatment/Plan Treatment Plan: Continue Plan of Care Treatment Plan: Bed Mobility, Education, Functional Activity Aly, Functional Strength, Gait, Safety, Therapeutic Exercise, Transfers Treatment Duration: Dec 16, 2016 Visits Per Week: 6 Time/GCodes Time In: 1130 Time Out: 1145 Total Billed Treatment Time: 15 Total Billed Treatment visit, exercise 15 min CHINO DELACRUZ PT Dec 03, 2016 12:08
[2016-12-03] MEDS: ENOXAPARIN 100 MG/1 ML (LOVENOX) SYR SC SCH (13:03)
--- NOTE | 2016-12-03 13:50 | Cardiology Progress Note ---
Cardiology SOAP Progress Note Subjective: improving shortness of breath. Objective: I&O/Vital Signs Vital Sign - Last 12Hours 12/03/16 12/03/16 12/03/16 12/03/16 02:00 02:10 03:00 04:00 Pulse 85 83 87 Resp 24 24 19 B/P (MAP) 125/92 133/129 Pulse Ox 99 100 99 O2 Delivery NIV/Bilevel NIV/Bilevel NIV/Bilevel O2 Flow Rate 40.00 40.00 40.00 FiO2 40 12/03/16 12/03/16 12/03/16 12/03/16 04:00 04:00 04:02 05:00 Temp 98.6 Pulse 89 84 84 Resp 20 24 23 B/P (MAP) 123/87 119/83 Pulse Ox 99 97 98 O2 Delivery NIV/Bilevel NIV/Bilevel NIV/Bilevel O2 Flow Rate 40.00 40.00 40.00 40.00 12/03/16 12/03/16 12/03/16 12/03/16 06:17 07:00 07:55 08:00 Temp 98.9 Pulse 85 86 Resp 21 B/P (MAP) 127/85 Pulse Ox 99 O2 Delivery NIV/Bilevel NIV/Bilevel O2 Flow Rate 40.00 FiO2 40 12/03/16 12/03/16 12/03/16 09:32 11:08 12:50 Temp 98.7 Pulse Ox 98 O2 Delivery NIV/Bilevel O2 Flow Rate 10.00 FiO2 40 Intake and Output 12/03/16 00:00 Intake Total 1450 ml Output Total 1325 ml Balance 125 ml Weight (Pounds): 251 Weight (Ounces): 4.0 Weight (Calculated Kilograms): 113.992895 Constitutional: No appears stated age, No PERRL, No well-developed, No well- nourished, other (Just extubated) Respiratory: No accessory muscle use, No respiratory distress, No chest tender , No chest expansion is symmetric, No chest is bilaterally symmetric, No lungs clear to percussion, No lungs clear to auscultation, No crackles, rhonchi, No rales, No stridor, No wheezing, No pleural rub, No other Cardiovascular: No regular rate-rhythm, irregularly irregular, No extra beats, No parasternal heave is noted, No JVD, No edema, No bradycardia, No tachycardia , No point of maximal impulse, No cardiac thrills are palpable, No S1 and S2, No gallop/S3, No gallop/S4, No diastolic murmur, No systolic murmur, No friction rub, No click, No other Gastrointestional: No tender, No soft, No round, No distended, No pulsatile mass, No organomegaly, No guarding, No rebound, No tenderness, No hernia, No mass, No audible bowel sounds, No abnormal bowel sounds, No abdominal bruits, No spleenomegaly, No other Extremities: No normal range of motion, No non-tender, No normal inspection, No pedal edema, No calf tenderness, No normal capillary refill, No pelvis stable , No calf tenderness, No inflammation, No pedal edema, No slow capillary refill , No swelling, No other, No abrasion, No clubbing, No cyanosis, No ecchymosis, No laceration, No no lower extremity edema bilateral, No significant edema, No tenderness, No wound Neurologic/Psychiatric: No copra sampler II-XII nml as tested, No no motor/sensory deficits, No alert, No normal mood/affect, No oriented x 3, No abnormal cerebellar tests, No abnormal copra sampler II-XII, No abnormal gait, No aphasia, No EOM palsy, No facial droop, No motor weakness, No sensory deficit, No depressed affect, No disoriented x 3, No other, No grossly intact, No power is 5/5 both on sides Skin: No normal color, No warm/dry, No cyanosis, No cool, No diaphoresis, No damp, No ecchymosis, No jaundice, No mottled, No pallor, No rash, No tattoos/ piercings, No ulcerations, No rash on exposed areas, No ulcerations on exposed areas, No other Results/Procedures: Labs Laboratory Tests 12/02/16 17:38: Glucometer 140H 12/02/16 23:55: Glucometer 89 12/03/16 05:40: White Blood Count 11.2H, Red Blood Count 2.85L, Hemoglobin 8.9L, Hematocrit 28L , Mean Corpuscular Volume 97, Mean Corpuscular Hemoglobin 31, Mean Corpuscular Hemoglobin Concent 32, Red Cell Distribution Width 13.9, Platelet Count 234, Mean Platelet Volume 10.5H, Neutrophils (%) (Auto) 85H, Lymphocytes (%) (Auto) 4L, Monocytes (%) (Auto) 9, Eosinophils (%) (Auto) 1, Basophils (%) (Auto) 0, Neutrophils # (Auto) 9.6H, Lymphocytes # (Auto) 0.5L, Monocytes # (Auto) 1.0, Eosinophils # (Auto) 0.1, Basophils # (Auto) 0.0, Blood Gas Puncture Site L EDEN, Blood Gas Patient Temperature 98.2, Arterial Blood pH 7.39, Arterial Blood Partial Pressure CO2 40, Arterial Blood Partial Pressure O2 62L, Arterial Blood HCO3 24, Arterial Blood Total CO2 24.8, Arterial Blood Oxygen Saturation 92L, Arterial Blood Base Excess -0.7, Parish Test ART LINE, Blood Gas Ventilator Setting YES, Blood Gas Inspired Oxygen BIPAP 40%, Sodium Level 142, Potassium Level 4.2, Chloride Level 109H, Carbon Dioxide Level 22, Anion Gap 11, Blood Urea Nitrogen 48H, Creatinine 3.02H, Estimat Glomerular Filtration Rate 20, BUN/ Creatinine Ratio 16, Glucose Level 104, Calcium Level 8.0L, Phosphorus Level 3.6 , Magnesium Level 1.9 12/03/16 12:05: Glucometer 123H Microbiology 12/01/16 Blood Culture - Final, Complete No growth 11/30/16 Gram Stain - Final, Complete 11/30/16 Sputum Culture - Final, Complete Yeast Species 12/01/16 Urine Culture - Final, Complete NO GROWTH A/P: Assessment/Dx: gross hematuria s/p cystoscopy, Chronic atrial fibrillation, Congestive heart failure, recent Cardiorespiratory arrest Plan: Cardiorespiratory arrest: Chest examination reveals rhonchi. improving shortness of breath. Continue current dose of Lasix. Likely etiology for cardiorespiratory arrest would be pulmonary embolism. Possible pulmonary embolism: Significantly elevated d-dimer. Echocardiogram shows mild RV enlargement. on full dose Lovenox (with renal adjustment) Atrial fibrillation: Patient has chronic atrial fibrillation. Xarelto when okay with urology h/o hypertension: chronic kidney disease: Creatinine 2.46, GFR 25. Renal follow up as outpatient will continue to follow Thank you for your consultation. Please call me if you have any questions. Samina Mathias MD, FACP, FACC, FSCAI, FHRS, CCDS Interventional Cardiology Cardiac Electrophysiology Vascular Medicine and Endovascular Interventions Esvin MATHIAS MD Dec 03, 2016 1:50 pm
[2016-12-03] MEDS ORDERED: morphine INJ 4 MG/ML 1 ML (VIAL/SYRINGE) IVP PRN (14:45)
[2016-12-03] MEDS ORDERED: BUMETANIDE 1 MG/4 ML (BUMEX) VIAL IV ONE (15:30)
[2016-12-03] MEDS: TERAZOSIN 5 MG (HYTRIN) CAPSULE PO SCH (21:00)
[2016-12-04] VITALS (24 sets, daily range): BP systolic 90–124; BP diastolic 57–83
[2016-12-04] MEDS: PIPERACILLIN SODIUM/TAZOBACTAM 4.5 GM in NS (IVPB) 100 ML IV SCH ×3 (01:19→17:45)
[2016-12-04] MEDS: RT-ALBUTEROL/IPRATROPIUM 3 ML (DUONEB) VIAL INH SCH ×4 (03:17→20:45)
[2016-12-04] MEDS: NS IV 1000 ML 1,000 ML IV SCH ×2 (04:44→19:08)
[2016-12-04 05:27] LABS: BASOPHILS % (AUTO) 0 % (0-10); EOSINOPHILS # (AUTO) 0.2 10^3/uL (0.0-0.3); EOSINOPHILS % (AUTO) 2 % (0-10); LYMPHOCYTES # (AUTO) 0.6 X 10^3 (1.0-4.0); LYMPHOCYTES % (AUTO) 7 % (12-44); MEAN CORPUSCULAR HEMOGLOBIN 31 PG (25-34); MEAN CORPUSCULAR HGB CONC 32 G/DL (32-36); MEAN CORPUSCULAR VOLUME 97 FL (80-99); MEAN PLATELET VOLUME 9.6 FL (7.4-10.4); MONOCYTES # (AUTO) 0.8 X 10^3 (0.0-1.0); MONOCYTES % (AUTO) 9 % (0-12); NEUTROPHILS # (AUTO) 7.6 X 10^3 (1.8-7.8); NEUTROPHILS % (AUTO) 83 % (42-75); PLATELET COUNT 216 10^3/uL (130-400); RED BLOOD COUNT 2.69 10^6/uL (4.35-5.85); RED CELL DISTRIBUTION WIDTH 14.1 % (10.0-14.5); WHITE BLOOD COUNT 9.2 10^3/uL (4.3-11.0)
[2016-12-04] MEDS: POTASSIUM CL 10MEQ/50ML IVPB 50 ML IV SCH (06:00)
[2016-12-04] MEDS: MAGNESIUM 1 GM/100 ML IVPB 100 ML IV SCH (06:00)
[2016-12-04] MEDS: KCL 20 MEQ TAB (K-DUR) PO SCH (06:00)
[2016-12-04 06:05] LABS: CALCIUM 7.9 MG/DL (8.5-10.1); CREATININE SERUM 3.24 MG/DL (0.60-1.30); POTASSIUM 3.8 MMOL/L (3.6-5.0)
[2016-12-04] MEDS: inSUlin (REGULAR) HUMAN 1 UNIT/0.01 ML (CHARGE PER UNIT) SC SCH ×3 (06:52→17:34)
[2016-12-04] MEDS: KCL 10 MEQ TAB (MICRO K) PO SCH ×2 (06:53→17:45)
[2016-12-04] MEDS: lisINopril 20 MG (ZESTRIL) TAB PO SCH (08:18)
[2016-12-04] MEDS: CARVEDILOL 12.5 MG (COREG) TABLET PO SCH ×2 (08:18→20:30)
[2016-12-04] MEDS: LEVOFLOXACIN 500 MG/100 ML IV 100 ML IV SCH (08:23)
--- NOTE | 2016-12-04 09:19 | Progress Note-Hospitalist ---
Subjective HPI/CC On Admission CC: Gross Hematuria HPI: [id number] [place] [address] Calvert[place]rique [place] [facility] [place] [facility] [place] to pursue gross hematuria at higher level of care facility. Dr. Londono saw pt ordered CT scan due to SOB and during CT scan pt went into respiratory failure, Code blue called and pt was intubated. WBC 13.8, Hgb 8.8, ABG yesterday 7.28/56/68 today 7.41/40/52. CXR showed improvement and he is currently extubated Date Seen 12/04/16 Subjective/Events-last exam patient has been on BiPAP since yesterday afternoon and drops his oxygen as soon as it is taken off. He is lying flat and comfortable as long as he is on the BiPAP. Chest x-ray continues to worsen. Renal function is declining. Patient is beginning to use abdominal muscles to breathe. I had a long discussion with the family regarding the fact that is pulmonary and renal status is declining. They wish that he remains a DO NOT RESUSCITATE DO NOT INTUBATE but would like to continue with the antibiotics. At this juncture that seems to be reasonable but they are aware of the fact that every day he has been having worsening overall status.. Otherwise the patient is awake today and answers questions around his BiPAP Review of Systems Pulmonary: Dyspnea Neurological: Weakness Objective Exam Vital Signs Vital Sign - Last 12Hours 11/28/16 11/28/16 11/30/16 11:00 14:42 12:14 Temp 97.8 Pulse 94 Resp 24 B/P (MAP) 139/87 Pulse Ox 92 O2 Delivery Room Air O2 Flow Rate 4.00 FiO2 50 Capillary Refill : General Appearance: Mild Distress, Obese Neck: Limited Range of Motion Respiratory: Accessory Muscle Use, Decreased Breath Sounds, Rales Cardiovascular: Systolic Murmur, Irregularly Irregular Gastrointestinal: Soft Extremity: Pedal Edema, Other (chronic venous stasis changes) Neurologic/Psychiatric: Alert, No Motor/Sensory Deficits Skin: Normal Color Results/Procedures Lab Laboratory Tests 12/04/16 05:20 Assessment/Plan Assessment and Plan Assess & Plan/Chief Complaint Assessment: Status post respiratory arrest requiring intubation-patient still seems to be dyspneic and has fluid overload. 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 Patient's chest x-ray is worsening and prognosis is poor hypotension currently holding his blood pressure medicines Plan to transfer to the medical floor if he improves. CHUY ESTEBAN MD Dec 04, 2016 09:19
--- NOTE | 2016-12-04 09:26 | Diagnostic Imaging Report ---
EXAM: CHEST 1 VIEW, AP/PA ONLY INDICATION: Shortness of breath. COMPARISON: Chest radiograph 12/03/2016. FINDINGS: Marked cardiomegaly. Low lung volumes. There appears to have been some interval improvement of the airspace opacities in the right lung. The left lung is largely obscured by the cardiac silhouette. Pleural effusion cannot be excluded on the left. No pneumothorax. Right IJ CVC tip upper SVC. IMPRESSION: Low lung volumes and cardiomegaly, limited evaluation. A left pleural effusion cannot be excluded. There appears to have been some modest interval improvement of the airspace opacities in the left lung. Dictated by: Dictated on workstation # [id number]
[2016-12-04] MEDS: NOREPINEPHRINE 4 MG in D5W 250 ML (IVPB) 250 ML IV SCH ×2 (10:05→23:25)
[2016-12-04] MEDS: GABAPENTIN 100 MG (NEURONTIN) CAP PO SCH ×3 (10:08→20:30)
[2016-12-04] MEDS: FUROSEMIDE 40 MG/4 ML INJ (LASIX) IVP SCH (10:08)
[2016-12-04] MEDS: OXYBUTYNIN (DITROPAN) 5 MG TAB PO SCH ×3 (10:08→20:33)
[2016-12-04] MEDS: PANTOPRAZOLE 40 MG/10 ML (PROTONIX) VIAL IV SCH (10:08)
[2016-12-04] MEDS: ALLOPURINOL 100 MG (ZYLOPRIM) TAB PO SCH ×2 (10:08→17:45)
[2016-12-04] MEDS: DOPamine DRIP 250 ML IV SCH (11:18)
[2016-12-04] MEDS: ENOXAPARIN 100 MG/1 ML (LOVENOX) SYR SC SCH (11:21)
--- NOTE | 2016-12-04 12:20 | Cardiology Progress Note ---
Cardiology SOAP Progress Note Subjective: small improvement in breathing. Objective: I&O/Vital Signs Vital Sign - Last 12Hours 12/04/16 12/04/16 12/04/16 12/04/16 00:35 00:48 01:15 01:43 Pulse 85 75 81 86 Resp 17 18 19 B/P (MAP) 100/70 101/70 Pulse Ox 99 100 99 O2 Delivery NIV/Bilevel NIV/Bilevel O2 Flow Rate 30.00 30.00 30.00 12/04/16 12/04/16 12/04/16 12/04/16 02:45 03:17 03:27 03:35 Temp 96.4 Pulse 90 82 77 Resp 18 15 16 B/P (MAP) 93/65 96/61 Pulse Ox 98 100 100 O2 Delivery NIV/Bilevel NIV/Bilevel O2 Flow Rate 30.00 30.00 30.00 12/04/16 12/04/16 12/04/16 12/04/16 04:00 04:30 05:19 05:30 Pulse 87 87 88 Resp 15 17 B/P (MAP) 112/64 102/66 Pulse Ox 91 99 99 O2 Delivery NIV/Bilevel NIV/Bilevel NIV/Bilevel O2 Flow Rate 30.00 30.00 30.00 FiO2 40 12/04/16 12/04/16 12/04/16 12/04/16 06:13 07:00 08:00 08:16 Temp 98.4 Pulse 80 81 82 Resp 16 20 B/P (MAP) 90/68 118/81 Pulse Ox 99 100 O2 Delivery NIV/Bilevel NIV/Bilevel NIV/Bilevel O2 Flow Rate 30.00 30.00 FiO2 40 12/04/16 12/04/16 08:22 11:49 Pulse 88 78 Resp 21 17 Pulse Ox 99 99 O2 Flow Rate 30.00 30.00 Intake and Output 12/04/16 00:00 Intake Total 700 ml Output Total 500 ml Balance 200 ml Weight (Pounds): 255 Weight (Ounces): 4.0 Weight (Calculated Kilograms): 115.123605 Constitutional: No appears stated age, No PERRL, No well-developed, No well- nourished, other (Just extubated) Respiratory: No accessory muscle use, No respiratory distress, No chest tender , No chest expansion is symmetric, No chest is bilaterally symmetric, No lungs clear to percussion, No lungs clear to auscultation, No crackles, rhonchi, No rales, No stridor, No wheezing, No pleural rub, No other Cardiovascular: No regular rate-rhythm, irregularly irregular, No extra beats, No parasternal heave is noted, No JVD, No edema, No bradycardia, No tachycardia , No point of maximal impulse, No cardiac thrills are palpable, No S1 and S2, No gallop/S3, No gallop/S4, No diastolic murmur, No systolic murmur, No friction rub, No click, No other Gastrointestional: No tender, No soft, No round, No distended, No pulsatile mass, No organomegaly, No guarding, No rebound, No tenderness, No hernia, No mass, No audible bowel sounds, No abnormal bowel sounds, No abdominal bruits, No spleenomegaly, No other Extremities: No normal range of motion, No non-tender, No normal inspection, No pedal edema, No calf tenderness, No normal capillary refill, No pelvis stable , No calf tenderness, No inflammation, No pedal edema, No slow capillary refill , No swelling, No other, No abrasion, No clubbing, No cyanosis, No ecchymosis, No laceration, No no lower extremity edema bilateral, No significant edema, No tenderness, No wound Neurologic/Psychiatric: No edge burnisher II-XII nml as tested, No no motor/sensory deficits, No alert, No normal mood/affect, No oriented x 3, No abnormal cerebellar tests, No abnormal edge burnisher II-XII, No abnormal gait, No aphasia, No EOM palsy, No facial droop, No motor weakness, No sensory deficit, No depressed affect, No disoriented x 3, No other, No grossly intact, No power is 5/5 both on sides Skin: No normal color, No warm/dry, No cyanosis, No cool, No diaphoresis, No damp, No ecchymosis, No jaundice, No mottled, No pallor, No rash, No tattoos/ piercings, No ulcerations, No rash on exposed areas, No ulcerations on exposed areas, No other Results/Procedures: Labs Laboratory Tests 12/03/16 15:55: B-Type Natriuretic Peptide 625.0H 12/03/16 17:10: Glucometer 108 12/03/16 23:45: Glucometer 146H 12/04/16 05:20: Glucometer 146H, White Blood Count 9.2, Red Blood Count 2.69L, Hemoglobin 8.3L, Hematocrit 26L, Mean Corpuscular Volume 97, Mean Corpuscular Hemoglobin 31, Mean Corpuscular Hemoglobin Concent 32, Red Cell Distribution Width 14.1, Platelet Count 216, Mean Platelet Volume 9.6, Neutrophils (%) (Auto) 83H, Lymphocytes (%) (Auto) 7L, Monocytes (%) (Auto) 9, Eosinophils (%) (Auto) 2, Basophils (%) (Auto) 0, Neutrophils # (Auto) 7.6, Lymphocytes # (Auto) 0.6L, Monocytes # (Auto) 0.8, Eosinophils # (Auto) 0.2, Basophils # (Auto) 0.0, Sodium Level 144, Potassium Level 3.8, Chloride Level 111H, Carbon Dioxide Level 23, Anion Gap 10, Blood Urea Nitrogen 51H, Creatinine 3.24H, Estimat Glomerular Filtration Rate 18, BUN/Creatinine Ratio 16, Glucose Level 140H, Calcium Level 7.9L, Magnesium Level 2.0 Microbiology 12/01/16 Blood Culture - Final, Complete No growth 11/30/16 Gram Stain - Final, Complete 11/30/16 Sputum Culture - Final, Complete Yeast Species 12/01/16 Urine Culture - Final, Complete NO GROWTH A/P: Assessment/Dx: gross hematuria s/p cystoscopy, Chronic atrial fibrillation, Congestive heart failure, recent Cardiorespiratory arrest Plan: Cardiorespiratory arrest: Chest examination reveals rhonchi. improving shortness of breath. Continue current dose of Lasix. Likely etiology for cardiorespiratory arrest would be pulmonary embolism. Possible pulmonary embolism: Significantly elevated d-dimer. Echocardiogram shows mild RV enlargement. on full dose Lovenox (with renal adjustment) Atrial fibrillation: Patient has chronic atrial fibrillation. Xarelto when okay with urology h/o hypertension: chronic kidney disease: Creatinine 2.46, GFR 25. Renal follow up as outpatient will continue to follow Thank you for your consultation. Please call me if you have any questions. Samina Mathias MD, FACP, FACC, FSCAI, FHRS, CCDS Interventional Cardiology Cardiac Electrophysiology Vascular Medicine and Endovascular Interventions Esvin MATHIAS MD Dec 04, 2016 12:20 pm
[2016-12-04] MEDS: TERAZOSIN 5 MG (HYTRIN) CAPSULE PO SCH (20:30)
[2016-12-05] VITALS (12 sets, daily range): BP systolic 91–115; BP diastolic 66–82
[2016-12-05] MEDS: RT-ALBUTEROL/IPRATROPIUM 3 ML (DUONEB) VIAL INH SCH ×4 (02:20→19:49)
[2016-12-05] MEDS: PIPERACILLIN SODIUM/TAZOBACTAM 4.5 GM in NS (IVPB) 100 ML IV SCH ×3 (02:38→17:57)
[2016-12-05 05:53] LABS: BASOPHILS % (AUTO) 0 % (0-10); EOSINOPHILS # (AUTO) 0.3 10^3/uL (0.0-0.3); EOSINOPHILS % (AUTO) 3 % (0-10); LYMPHOCYTES # (AUTO) 0.6 X 10^3 (1.0-4.0); LYMPHOCYTES % (AUTO) 7 % (12-44); MEAN CORPUSCULAR HEMOGLOBIN 31 PG (25-34); MEAN CORPUSCULAR HGB CONC 31 G/DL (32-36); MEAN CORPUSCULAR VOLUME 98 FL (80-99); MEAN PLATELET VOLUME 10.3 FL (7.4-10.4); MONOCYTES # (AUTO) 0.9 X 10^3 (0.0-1.0); MONOCYTES % (AUTO) 10 % (0-12); NEUTROPHILS # (AUTO) 7.1 X 10^3 (1.8-7.8); NEUTROPHILS % (AUTO) 80 % (42-75); PLATELET COUNT 231 10^3/uL (130-400); RED BLOOD COUNT 2.65 10^6/uL (4.35-5.85); RED CELL DISTRIBUTION WIDTH 14.3 % (10.0-14.5)
[2016-12-05] MEDS: MAGNESIUM 1 GM/100 ML IVPB 100 ML IV SCH (06:00)
[2016-12-05] MEDS: KCL 20 MEQ TAB (K-DUR) PO SCH (06:00)
[2016-12-05] MEDS: POTASSIUM CL 10MEQ/50ML IVPB 50 ML IV SCH (06:00)
[2016-12-05] MEDS: inSUlin (REGULAR) HUMAN 1 UNIT/0.01 ML (CHARGE PER UNIT) SC SCH ×4 (06:00→18:00)
[2016-12-05 06:11] LABS: CALCIUM 7.8 MG/DL (8.5-10.1); CREATININE SERUM 3.23 MG/DL (0.60-1.30); MAGNESIUM 1.9 MG/DL (1.8-2.4); PHOSPHORUS 3.4 MG/DL (2.3-4.7)
[2016-12-05] MEDS: KCL 10 MEQ TAB (MICRO K) PO SCH ×2 (06:44→17:56)
--- NOTE | 2016-12-05 07:25 | Pulmonary Progress Note ---
Subjective Subjective/Events-last exam Pt is currently on BiPAP. Family at bedside. Exam Exam Vital Signs Date Time Temp Pulse Resp B/P (MAP) Pulse Ox O2 Delivery O2 Flow Rate FiO2 12/05/16 06:55 77 20 97 25.00 12/05/16 06:16 84 17 102/71 96 NIV/Bilevel 30.00 12/05/16 05:30 76 22 113/73 96 NIV/Bilevel 30.00 12/05/16 04:35 80 20 115/82 96 NIV/Bilevel 30.00 12/05/16 04:08 79 21 93 25.00 12/05/16 03:21 84 17 106/72 94 NIV/Bilevel 30.00 12/05/16 02:40 80 15 112/72 90 NIV/Bilevel 30.00 12/05/16 02:20 85 20 95 25.00 12/05/16 01:26 70 20 113/79 95 NIV/Bilevel 30.00 12/05/16 01:00 78 12/05/16 00:40 79 24 97 25.00 12/05/16 00:29 73 20 91/66 97 NIV/Bilevel 30.00 12/05/16 00:00 99.1 12/04/16 23:30 75 18 110/66 93 NIV/Bilevel 30.00 12/04/16 22:50 79 21 95 25.00 12/04/16 22:24 78 21 103/73 97 NIV/Bilevel 30.00 12/04/16 21:30 75 17 107/73 97 NIV/Bilevel 30.00 12/04/16 21:00 98 NIV/Bilevel 25 12/04/16 20:34 73 14 105/64 100 NIV/Bilevel 30.00 12/04/16 20:30 84 21 98 30.00 12/04/16 20:00 99.1 88 19 105/64 97 NIV/Bilevel 30.00 12/04/16 19:28 87 16 103/65 99 NIV/Bilevel 30.00 12/04/16 18:56 79 12/04/16 18:20 80 25 30.00 12/04/16 16:49 86 20 30.00 12/04/16 15:44 5.00 12/04/16 13:00 85 12/04/16 12:15 99.3 73 18 111/73 98 NIV/Bilevel 30.00 12/04/16 11:49 78 17 99 30.00 12/04/16 08:22 88 21 99 30.00 12/04/16 08:16 98.4 82 20 118/81 100 NIV/Bilevel 30.00 12/04/16 08:00 NIV/Bilevel 40 I & O 12/05/16 07:00 Intake Total 550 ml Output Total 1400 ml Balance -850 ml General Appearance: Mild Distress, Obese HEENT: PERRL/EOMI, Other (endotracheal tube in place) Neck: Limited Range of Motion Respiratory: Accessory Muscle Use, Decreased Breath Sounds, Rales Cardiovascular: Systolic Murmur, Irregularly Irregular Gastrointestinal: normal bowel sounds, non tender, soft, no organomegaly, no pulsatile mass Extremity: Pedal Edema, Other (chronic venous stasis changes) Neurologic/Psychiatric: Alert, No Motor/Sensory Deficits Skin: Normal Color Lymphatic: No Adenopathy Results Lab Laboratory Tests 12/04/16 05:20 12/05/16 05:43 Assessment/Plan Assessment/Plan S/P CODE Blue questionable PE - Unable to do CTA and has been too unstable for V /Q. PT has Afib so will need anticoagulation regardless of PE or not. Currently on theraputic dose lovenox. Will change to Xarelto prior to discharge. - hypotension probably cardiogenic secondary to code blue in CT scanner. bradycardia - levophed gtt - D/C'd Acute respiratory failure -BiPAP -WIll trial him off BiPAP but continue to use QHS and PRN -IF he is doing well respiratory rosario he can use his home CPAP at night Hematuria s/p cystoscopy Dyspnea - PRN treatments -ICU monitoring -CT scan shows scant fluid. no infiltrates Acute renal failure -IVF, monitor -PT may need to be transferred for nephrology support GILLIAN AFib- chronic currently controlled -Lovenox therapeutic dosing CHF - stable Clinical Quality Measures DVT/VTE Risk/Contraindication: Risk Factor Score Per Nursin RFS Level Per Nursing on Admit: 4+=Very High SHEILA HARO DO Dec 05, 2016 07:25
--- NOTE | 2016-12-05 08:41 | Diagnostic Imaging Report ---
INDICATION: Shortness of air. COMPARISON: 12/04/2016. FINDINGS: The cardiomegaly is unchanged. The left mid to lower lung infiltrate has improved. Some patchy infiltrates in the right perihilar region have improved. The IJ catheter via the right is unchanged. IMPRESSION: The perihilar and left lower lobe infiltrates have improved. The cardiomegaly is redemonstrated but is probably at least somewhat improved as well. No adverse development. Dictated by: Dictated on workstation # [id number]
[2016-12-05] MEDS: lisINopril 20 MG (ZESTRIL) TAB PO SCH (08:47)
[2016-12-05] MEDS: PANTOPRAZOLE 40 MG/10 ML (PROTONIX) VIAL IV SCH (08:47)
[2016-12-05] MEDS: FUROSEMIDE 40 MG/4 ML INJ (LASIX) IVP SCH (08:47)
[2016-12-05] MEDS: ALLOPURINOL 100 MG (ZYLOPRIM) TAB PO SCH ×2 (08:47→17:56)
[2016-12-05] MEDS: OXYBUTYNIN (DITROPAN) 5 MG TAB PO SCH ×3 (08:47→22:08)
[2016-12-05] MEDS: GABAPENTIN 100 MG (NEURONTIN) CAP PO SCH ×3 (08:47→22:09)
[2016-12-05] MEDS: CARVEDILOL 12.5 MG (COREG) TABLET PO SCH ×2 (08:51→22:09)
--- NOTE | 2016-12-05 09:06 | Progress Note-Urology ---
Progress Note-Urology Progress Notes/Assess & Plan Progress/Assessment & Plan urine lawanda and clear on lovenox, DC [place] if not needed medically Final Diagnosis hematuria LISSY SNYDER MD Dec 05, 2016 9:06 am
--- NOTE | 2016-12-05 10:11 | Occ Therapy Progress Note ---
Therapy Progress Note Per nrsg, pt had just been bathed and turned during had tachycardiac episode. OT to check on pt later in day. 1 visit APRIL ESPINOZA Dec 05, 2016 10:11
--- NOTE | 2016-12-05 10:12 | Cardiology Progress Note ---
Cardiology SOAP Progress Note Subjective: Gradually improving shortness of breath Objective: I&O/Vital Signs Vital Sign - Last 12Hours 12/04/16 12/04/16 12/05/16 12/05/16 22:50 23:30 00:00 00:29 Temp 99.1 Pulse 79 75 73 Resp 21 18 20 B/P (MAP) 110/66 91/66 Pulse Ox 95 93 97 O2 Delivery NIV/Bilevel NIV/Bilevel O2 Flow Rate 25.00 30.00 30.00 12/05/16 12/05/16 12/05/16 12/05/16 00:40 01:00 01:26 02:20 Pulse 79 78 70 85 Resp 24 20 20 B/P (MAP) 113/79 Pulse Ox 97 95 95 O2 Delivery NIV/Bilevel O2 Flow Rate 25.00 30.00 25.00 12/05/16 12/05/16 12/05/16 12/05/16 02:40 03:21 04:08 04:35 Pulse 80 84 79 80 Resp 15 17 21 20 B/P (MAP) 112/72 106/72 115/82 Pulse Ox 90 94 93 96 O2 Delivery NIV/Bilevel NIV/Bilevel NIV/Bilevel O2 Flow Rate 30.00 30.00 25.00 30.00 12/05/16 12/05/16 12/05/16 12/05/16 05:30 06:16 06:55 07:00 Pulse 76 84 77 81 Resp 22 17 20 B/P (MAP) 113/73 102/71 Pulse Ox 96 96 97 O2 Delivery NIV/Bilevel NIV/Bilevel O2 Flow Rate 30.00 30.00 25.00 12/05/16 12/05/16 12/05/16 08:00 09:00 10:21 Temp 100.0 Pulse Ox 96 O2 Delivery High Flow NC O2 Flow Rate 5.00 5.00 Intake and Output 12/05/16 00:00 Intake Total 350 ml Output Total 550 ml Balance -200 ml Weight (Pounds): 252 Weight (Ounces): 1.0 Weight (Calculated Kilograms): 114.116973 Constitutional: No appears stated age, No PERRL, No well-developed, No well- nourished, other (Just extubated) Respiratory: No accessory muscle use, No respiratory distress, No chest tender , No chest expansion is symmetric, No chest is bilaterally symmetric, No lungs clear to percussion, No lungs clear to auscultation, No crackles, rhonchi, No rales, No stridor, No wheezing, No pleural rub, No other Cardiovascular: No regular rate-rhythm, irregularly irregular, No extra beats, No parasternal heave is noted, No JVD, No edema, No bradycardia, No tachycardia , No point of maximal impulse, No cardiac thrills are palpable, No S1 and S2, No gallop/S3, No gallop/S4, No diastolic murmur, No systolic murmur, No friction rub, No click, No other Gastrointestional: No tender, No soft, No round, No distended, No pulsatile mass, No organomegaly, No guarding, No rebound, No tenderness, No hernia, No mass, No audible bowel sounds, No abnormal bowel sounds, No abdominal bruits, No spleenomegaly, No other Extremities: No normal range of motion, No non-tender, No normal inspection, No pedal edema, No calf tenderness, No normal capillary refill, No pelvis stable , No calf tenderness, No inflammation, No pedal edema, No slow capillary refill , No swelling, No other, No abrasion, No clubbing, No cyanosis, No ecchymosis, No laceration, No no lower extremity edema bilateral, No significant edema, No tenderness, No wound Neurologic/Psychiatric: No satellite project site monitor II-XII nml as tested, No no motor/sensory deficits, No alert, No normal mood/affect, No oriented x 3, No abnormal cerebellar tests, No abnormal satellite project site monitor II-XII, No abnormal gait, No aphasia, No EOM palsy, No facial droop, No motor weakness, No sensory deficit, No depressed affect, No disoriented x 3, No other, No grossly intact, No power is 5/5 both on sides Skin: No normal color, No warm/dry, No cyanosis, No cool, No diaphoresis, No damp, No ecchymosis, No jaundice, No mottled, No pallor, No rash, No tattoos/ piercings, No ulcerations, No rash on exposed areas, No ulcerations on exposed areas, No other Results/Procedures: Labs Laboratory Tests 12/04/16 12:05: Glucometer 119H 12/04/16 17:08: Glucometer 111H 12/05/16 00:36: Glucometer 128H 12/05/16 05:41: Glucometer 101 12/05/16 05:43: White Blood Count 9.0, Red Blood Count 2.65L, Hemoglobin 8.1L, Hematocrit 26L, Mean Corpuscular Volume 98, Mean Corpuscular Hemoglobin 31, Mean Corpuscular Hemoglobin Concent 31L, Red Cell Distribution Width 14.3, Platelet Count 231, Mean Platelet Volume 10.3, Neutrophils (%) (Auto) 80H, Lymphocytes (%) (Auto) 7L , Monocytes (%) (Auto) 10, Eosinophils (%) (Auto) 3, Basophils (%) (Auto) 0, Neutrophils # (Auto) 7.1, Lymphocytes # (Auto) 0.6L, Monocytes # (Auto) 0.9, Eosinophils # (Auto) 0.3, Basophils # (Auto) 0.0, Sodium Level 143, Potassium Level 4.0, Chloride Level 111H, Carbon Dioxide Level 23, Anion Gap 9, Blood Urea Nitrogen 48H, Creatinine 3.23H, Estimat Glomerular Filtration Rate 18, BUN/ Creatinine Ratio 15, Glucose Level 99, Calcium Level 7.8L, Phosphorus Level 3.4 , Magnesium Level 1.9 Microbiology 12/01/16 Blood Culture - Final, Complete No growth 11/30/16 Gram Stain - Final, Complete 11/30/16 Sputum Culture - Final, Complete Yeast Species 12/01/16 Urine Culture - Final, Complete NO GROWTH A/P: Assessment/Dx: gross hematuria s/p cystoscopy, Chronic atrial fibrillation, Congestive heart failure, recent Cardiorespiratory arrest Plan: Cardiorespiratory arrest: Chest examination reveals rhonchi. improving shortness of breath. Continue current dose of Lasix. Likely etiology for cardiorespiratory arrest would be pulmonary embolism. Possible pulmonary embolism: Significantly elevated d-dimer. Echocardiogram shows mild RV enlargement. on full dose Lovenox (with renal adjustment) Atrial fibrillation: Patient has chronic atrial fibrillation. Xarelto when okay with urology h/o hypertension: chronic kidney disease: Worsening renal function. will continue to follow Thank you for your consultation. Please call me if you have any questions. Samina Mathias MD, FACP, FACC, FSCAI, FHRS, CCDS Interventional Cardiology Cardiac Electrophysiology Vascular Medicine and Endovascular Interventions Esvin MATHIAS MD Dec 05, 2016 10:12 am
--- NOTE | 2016-12-05 11:07 | Physical Therapy Progress Note ---
Therapy Progress Note Attempted PT visit this morning, nursing requested to hold for now due to recent removal of Bi Pap. Will recheck pt this pm. APRIL LATIF PT Dec 05, 2016 11:07
[2016-12-05] MEDS: ENOXAPARIN 100 MG/1 ML (LOVENOX) SYR SC SCH (13:04)
--- NOTE | 2016-12-05 14:34 | Physical Therapy Progress Note ---
Therapy Progress Note Attempted PT visit this pm. Nursing requested to hold off for now due to pt complaints of not feeling well/complaints of chest pain. APRIL LATIF PT Dec 05, 2016 14:34
--- NOTE | 2016-12-05 14:53 | Occupational Ther Daily Note ---
OT Current Status-Daily Note Subjective Pt. does not report pain. Nursing states that pt. has been in V-tach, but is okay now, and it is okay to see him. Appearance Pt. in bed. Agrees to work with OT. Mental Status/Objective Patient Orientation: Person Functional [place] Measure 0=Not Assessed/NA 4=Minimal Assistance 1=Total Assistance 5=Supervision or Setup 2=Maximal Assistance 6=Modified [place] 3=Moderate Assistance 7=Complete [place] Attachments: IV, Oxygen, Telemetry Pt. is somewhat MOAPA. ADL-Treatment Lower Body Dressing (FIM): 2 (Max assist to doff/don socks.) Transfers (B, C, W/C) (FIM): 3 (Pt. is able to transfer supine-sit with mod assist, and sit-stand with mod assist.) Other Treatment Pt. is able to transfer with mod assist and encouragement to side of bed. Sat there approximately 5 minutes. Rested. Stood x 2 with mod assist. Able to take steps to left briefly to get toward HOB. Unable to sustain upright posture. Had to sit quickly. Mod assist for sit-supine. Education OT Patient Education: Correct positioning, Modified ADL techniques, Progress toward Goal/Update tx plan, Purpose of tx/functional activities, Reviewed precautions, Rehab process, Transfer techniques Teaching Recipient: Patient Teaching Methods: Demonstration, Discussion Response to Teaching: Verbalize Understanding, Return Demonstration OT Short Term Goals Short Term Goals 1=Demonstrate adherence to instructed precautions during ADL tasks. 2=Patient will verbalize/demonstrate understanding of assistive devices/ modifications for ADL. 3=Patient will improve strength/tolerance for activity to enable patient to perform ADL's. OT Vb Net Developer Goals Vb Net Developer Goals Time Frame: Dec 16, 2016 Eating (FIM): 6 Grooming(FIM): 5 Bathing(FIM): 5 Upper Body Dressing(FIM): 5 Lower Body Dressing(FIM): 5 Toileting(FIM): 5 Toilet/Commode Transfer(FIM): 5 Shower Transfer(FIM): 5 Additional Goals: 2-Verbalize Understanding, 3-ImproveStrength/Aly 1=Demonstrate adherence to instructed precautions during ADL tasks. 2=Patient will verbalize/demonstrate understanding of assistive devices/ modifications for ADL. 3=Patient will improve strength/tolerance for activity to enable patient to perform ADL's. OT Education/Plan Problem List/Assessment Assessment: Decreased Activ Tolerance, Decreased UE Strength, Dependent Transfers, Impaired Bed Mobility, Impaired Coordination, Impaired Funct Balance , Impaired I ADL's, Impaired Self-Care Skills, Restricted Funct UE ROM Pt would benefit from skilled OT to increase his independence in basic self care to allow him to return home safely with his and decrease caregiver burden. Discharge Recommendations Plan/Recommendations: Continue POC Therapy D/C Recommendations: 24 hr Supervision Treatment Plan/Plan of Care Treatment,Training & Education: Yes Patient would benefit from OT for education, treatment and training to promote independence in ADL's, mobility, safety and/or upper extremity function for ADL' s. Plan of Care: ADL Retraining, Functional Mobility, UE Funct Exercise/Act, UE Neuromus Re-Ed/Coord Treatment Duration: Dec 16, 2016 Visits Per Week: 5-6 Rehab Potential: Fair Time/GCodes Start Time: 14:00 Stop Time: 14:20 Total Time Billed (hr/min): 20 Billed Treatment Time 1, JONATHAN RUBIN OT Dec 05, 2016 14:53
--- NOTE | 2016-12-05 15:59 | Progress Note-Hospitalist ---
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 He has been extubated and is receiving O2 and BiPAP as necessary. He looked at me when addressed but did not attempt to answer any questions or statements. Current evidence suggests that his urinary output is declining and his creatinine is climbing. He is also been noted by nursing to be diffusely edematous. Physical exam: The patient appears alert but is not respondent to verbal stimuli. Lungs show tachypnea and shallow respirations. CV is irregular and consistent with atrial fibrillation. Extremities showed the hands and legs to be 2-3+ edematous. Impression: Admission secondary to gross hematuria. Subsequent decline with CODE BLUE status and intubation and ventilation. 3.continued poor performance with marginal respiratory status and apparent declining renal function. Plan: Family is considering options for future care. Labs Laboratory Tests 12/04/16 05:20 12/05/16 05:43 SERA MASTERSON MD Dec 05, 2016 15:59
[2016-12-05] MEDS: TERAZOSIN 5 MG (HYTRIN) CAPSULE PO SCH (22:09)
[2016-12-06] VITALS (13 sets, daily range): BP systolic 102–134; BP diastolic 68–91
[2016-12-06] MEDS: NS IV 1000 ML 1,000 ML IV SCH ×2 (00:36→13:37)
[2016-12-06] MEDS: inSUlin (REGULAR) HUMAN 1 UNIT/0.01 ML (CHARGE PER UNIT) SC SCH ×4 (00:36→18:00)
[2016-12-06] MEDS: RT-ALBUTEROL/IPRATROPIUM 3 ML (DUONEB) VIAL INH SCH ×4 (01:11→20:07)
[2016-12-06] MEDS: PIPERACILLIN SODIUM/TAZOBACTAM 4.5 GM in NS (IVPB) 100 ML IV SCH (02:36)
[2016-12-06 04:56] LABS: BASOPHILS % (AUTO) 0 % (0-10); EOSINOPHILS # (AUTO) 0.4 10^3/uL (0.0-0.3); LYMPHOCYTES # (AUTO) 0.6 X 10^3 (1.0-4.0); MEAN CORPUSCULAR HEMOGLOBIN 30 PG (25-34); MEAN CORPUSCULAR HGB CONC 31 G/DL (32-36); MEAN CORPUSCULAR VOLUME 99 FL (80-99); MEAN PLATELET VOLUME 10.6 FL (7.4-10.4); MONOCYTES % (AUTO) 12 % (0-12); NEUTROPHILS # (AUTO) 5.9 X 10^3 (1.8-7.8); NEUTROPHILS % (AUTO) 74 % (42-75); PLATELET COUNT 221 10^3/uL (130-400); RED BLOOD COUNT 2.65 10^6/uL (4.35-5.85); RED CELL DISTRIBUTION WIDTH 14.4 % (10.0-14.5); WHITE BLOOD COUNT 7.9 10^3/uL (4.3-11.0)
[2016-12-06 05:01] LABS: ABG BASE EXCESS -1.9 MMOL/L (-2.5-2.5); ABG HCO3 23 MMOL/L (23-27); ABG OXYGEN SATURATION 90 % (94-100); ABG PCO2 45 MMHG (35-45); ABG PO2 57 MMHG (79-93); ABG TCO2 24.4 MMOL/L (21.0-31.0)
[2016-12-06 05:04] LABS: ALLENS TEST YES-POS; PATIENT TEMP 98.6
[2016-12-06 05:06] LABS: ABG PH 7.33 (7.37-7.43)
[2016-12-06 05:08] LABS: EOSINOPHILS % (AUTO) 5 % (0-10); LYMPHOCYTES % (AUTO) 9 % (12-44)
[2016-12-06 05:34] LABS: CREATININE SERUM 3.27 MG/DL (0.60-1.30); MAGNESIUM 1.8 MG/DL (1.8-2.4); PHOSPHORUS 3.6 MG/DL (2.3-4.7); POTASSIUM 3.9 MMOL/L (3.6-5.0)
[2016-12-06] MEDS: KCL 20 MEQ TAB (K-DUR) PO SCH (06:00)
[2016-12-06] MEDS: MAGNESIUM 1 GM/100 ML IVPB 100 ML IV SCH (06:00)
[2016-12-06] MEDS: POTASSIUM CL 10MEQ/50ML IVPB 50 ML IV SCH (06:00)
--- NOTE | 2016-12-06 07:09 | Pulmonary Progress Note ---
Subjective Subjective/Events-last exam PT is doing better respiratory rosario. Exam Exam Vital Signs Date Time Temp Pulse Resp B/P (MAP) Pulse Ox O2 Delivery O2 Flow Rate FiO2 12/06/16 04:38 81 25 94 25.00 12/06/16 04:00 97.2 85 23 126/91 96 NIV/Bilevel 25.00 12/06/16 01:12 80 25 94 25.00 12/06/16 01:00 82 12/06/16 00:45 84 27 93 NIV/Bilevel 25.00 12/06/16 00:00 98.6 78 24 102/68 92 High Flow NC 5.00 12/05/16 20:00 97.0 68 22 103/69 96 High Flow NC 5.00 12/05/16 19:50 98 5.00 12/05/16 19:00 81 12/05/16 15:00 99 5.00 12/05/16 13:00 82 12/05/16 12:16 97 5.00 12/05/16 12:00 98.4 12/05/16 10:21 96 5.00 12/05/16 09:00 High Flow NC 5.00 12/05/16 08:00 100.0 I & O 12/06/16 07:00 Intake Total 1450 ml Output Total 750 ml Balance 700 ml General Appearance: Mild Distress, Obese HEENT: PERRL/EOMI, Other (endotracheal tube in place) Neck: Limited Range of Motion Respiratory: Accessory Muscle Use, Decreased Breath Sounds, Rales Cardiovascular: Systolic Murmur, Irregularly Irregular Gastrointestinal: normal bowel sounds, non tender, soft, no organomegaly, no pulsatile mass Extremity: Pedal Edema, Other (chronic venous stasis changes) Neurologic/Psychiatric: Alert, No Motor/Sensory Deficits Skin: Normal Color Lymphatic: No Adenopathy Results Lab Laboratory Tests 12/05/16 05:43 12/06/16 04:35 Assessment/Plan Assessment/Plan S/P CODE Blue questionable PE - Unable to do CTA PT has Afib so will need anticoagulation regardless of PE or not. Currently on theraputic dose lovenox. Will change to Xarelto prior to discharge. - hypotension probably cardiogenic secondary to code blue in CT scanner. bradycardia - levophed gtt - D/C'd Acute respiratory failure -- much improved -BiPAP -WIll trial him off BiPAP but continue to use QHS and PRN -IF he is doing well respiratory rosario he can use his home CPAP at night Hematuria s/p cystoscopy Dyspnea - PRN treatments -PT is doing well on NC. Using BiPAP at night only - switch to home CPAP machine at night -CT scan shows scant fluid. no infiltrates Acute renal failure -worsening -IVF, monitor -Hold ACEI and Lasix -D/C ultram -IVF 75cc/hr GILLIAN -pt can use his home CPAP machine AFib- chronic currently controlled -Lovenox therapeutic dosing CHF - stable Family is requesting transfer to [facility] for nephrology support. Transfer to floor if pt is not transferred to [facility]. Clinical Quality Measures DVT/VTE Risk/Contraindication: Risk Factor Score Per Nursin RFS Level Per Nursing on Admit: 4+=Very High SHEILA HARO DO Dec 06, 2016 07:09
[2016-12-06] MEDS: KCL 10 MEQ TAB (MICRO K) PO SCH ×2 (07:55→21:44)
--- NOTE | 2016-12-06 08:25 | Progress Note-Urology ---
Progress Note-Urology Progress Notes/Assess & Plan Progress/Assessment & Plan PATIENT, U.O AND LABS STABLE. DOUBT DIALYSIS AT THIS POINT, IF NEEDED WE WILL TRANSFER TO [facility]. DR HARO AND FAMILY CONCURRED Final Diagnosis GROSS HEMATURIA AND RENAL FAILURE LISSY SNYDER MD Dec 06, 2016 8:25 am
[2016-12-06] MEDS: OXYBUTYNIN (DITROPAN) 5 MG TAB PO SCH ×3 (09:42→21:44)
[2016-12-06] MEDS: GABAPENTIN 100 MG (NEURONTIN) CAP PO SCH ×3 (09:42→21:44)
[2016-12-06] MEDS: PANTOPRAZOLE 40 MG/10 ML (PROTONIX) VIAL IV SCH (09:43)
[2016-12-06] MEDS: ALLOPURINOL 100 MG (ZYLOPRIM) TAB PO SCH ×2 (09:43→21:44)
[2016-12-06] MEDS: CARVEDILOL 12.5 MG (COREG) TABLET PO SCH ×2 (09:43→21:44)
--- NOTE | 2016-12-06 11:21 | Physical Therapy Progress Note ---
Therapy Progress Note Visit only. Pt on BiPap at this time. Spoke with nursing and she requested to hold PT at this time due to respiratory concerns. APRIL LATIF PT Dec 06, 2016 11:21
--- NOTE | 2016-12-06 11:34 | Cardiology Progress Note ---
Cardiology SOAP Progress Note Subjective: no complaints Objective: I&O/Vital Signs Vital Sign - Last 12Hours 12/07/16 12/07/16 12/07/16 12/07/16 00:00 01:00 02:22 04:00 Temp 98.1 98.1 Pulse 94 84 80 Resp 20 22 B/P (MAP) 103/73 104/69 Pulse Ox 94 94 95 O2 Delivery High Flow NC High Flow NC O2 Flow Rate 40.00 20.00 40.00 20.00 20.00 FiO2 40 12/07/16 12/07/16 12/07/16 12/07/16 07:00 08:05 08:08 08:38 Temp 98.4 Pulse 86 87 Resp 22 B/P (MAP) 114/74 Pulse Ox 95 96 O2 Delivery High Flow NC High Flow NC O2 Flow Rate 40.00 20.00 20.00 20.00 FiO2 40 40 12/07/16 10:00 Pulse 80 Resp 28 Pulse Ox 92 Intake and Output 12/07/16 00:00 Intake Total 1275 ml Balance 1275 ml Weight (Pounds): 256 Weight (Ounces): 3.2 Weight (Calculated Kilograms): 116.906644 Constitutional: No appears stated age, No PERRL, No well-developed, No well- nourished, other (Just extubated) Respiratory: No accessory muscle use, No respiratory distress, No chest tender , No chest expansion is symmetric, No chest is bilaterally symmetric, No lungs clear to percussion, No lungs clear to auscultation, No crackles, rhonchi, No rales, No stridor, No wheezing, No pleural rub, No other Cardiovascular: No regular rate-rhythm, irregularly irregular, No extra beats, No parasternal heave is noted, No JVD, No edema, No bradycardia, No tachycardia , No point of maximal impulse, No cardiac thrills are palpable, S1 and S2, No gallop/S3, No gallop/S4, No diastolic murmur, No systolic murmur, No friction rub, No click, No other Gastrointestional: No tender, No soft, No round, No distended, No pulsatile mass, No organomegaly, No guarding, No rebound, No tenderness, No hernia, No mass, No audible bowel sounds, No abnormal bowel sounds, No abdominal bruits, No spleenomegaly, No other Extremities: No normal range of motion, No non-tender, No normal inspection, No pedal edema, No calf tenderness, No normal capillary refill, No pelvis stable , No calf tenderness, No inflammation, No pedal edema, No slow capillary refill , No swelling, No other, No abrasion, No clubbing, No cyanosis, No ecchymosis, No laceration, No no lower extremity edema bilateral, No significant edema, No tenderness, No wound Neurologic/Psychiatric: No pipe recovery specialist II-XII nml as tested, No no motor/sensory deficits, No alert, No normal mood/affect, No oriented x 3, No abnormal cerebellar tests, No abnormal pipe recovery specialist II-XII, No abnormal gait, No aphasia, No EOM palsy, No facial droop, No motor weakness, No sensory deficit, No depressed affect, No disoriented x 3, No other, No grossly intact, No power is 5/5 both on sides Skin: No normal color, No warm/dry, No cyanosis, No cool, No diaphoresis, No damp, No ecchymosis, No jaundice, No mottled, No pallor, No rash, No tattoos/ piercings, No ulcerations, No rash on exposed areas, No ulcerations on exposed areas, No other Results/Procedures: Labs Laboratory Tests 12/06/16 12:16: Glucometer 141H 12/06/16 13:05: Albumin 2.3L 12/06/16 18:12: Glucometer 99 12/06/16 23:41: Glucometer 85 12/07/16 04:45: White Blood Count 9.6, Red Blood Count 2.72L, Hemoglobin 8.4L, Hematocrit 27L, Mean Corpuscular Volume 99, Mean Corpuscular Hemoglobin 31, Mean Corpuscular Hemoglobin Concent 31L, Red Cell Distribution Width 14.5, Platelet Count 241, Mean Platelet Volume 9.9, Neutrophils (%) (Auto) 80H, Lymphocytes (%) (Auto) 6L , Monocytes (%) (Auto) 8, Eosinophils (%) (Auto) 5, Basophils (%) (Auto) 0, Neutrophils # (Auto) 7.7, Lymphocytes # (Auto) 0.6L, Monocytes # (Auto) 0.8, Eosinophils # (Auto) 0.5H, Basophils # (Auto) 0.0, Neutrophils % (Manual) 83, Lymphocytes % (Manual) 4, Monocytes % (Manual) 4, Eosinophils % (Manual) 6, Basophils % (Manual) 0, Band Neutrophils 1, Reactive Lymphocytes 2, Polychromasia SLIGHT, Anisocytosis SLIGHT, Target Cells SLIGHT, Sodium Level 145 , Potassium Level 4.2, Chloride Level 113H, Carbon Dioxide Level 22, Anion Gap 10, Blood Urea Nitrogen 42H, Creatinine 3.13H, Estimat Glomerular Filtration Rate 19, BUN/Creatinine Ratio 13, Glucose Level 88, Calcium Level 8.0L, Phosphorus Level 4.0, Magnesium Level 1.9 Microbiology 12/01/16 Blood Culture - Final, Complete No growth 11/30/16 Gram Stain - Final, Complete 11/30/16 Sputum Culture - Final, Complete Yeast Species 12/01/16 Urine Culture - Final, Complete NO GROWTH A/P: Assessment/Dx: gross hematuria s/p cystoscopy, Chronic atrial fibrillation, Congestive heart failure, recent Cardiorespiratory arrest Plan: Cardiorespiratory arrest: Chest examination reveals rhonchi. improving shortness of breath. lasix held due to worsening renal function. Likely etiology for cardiorespiratory arrest would be pulmonary embolism. Possible pulmonary embolism: Significantly elevated d-dimer. Echocardiogram shows mild RV enlargement. on full dose Lovenox (with renal adjustment) Atrial fibrillation: Patient has chronic atrial fibrillation. Xarelto when okay with urology h/o hypertension: chronic kidney disease: Worsening renal function. will continue to follow Thank you for your consultation. Please call me if you have any questions. Samina Mathias MD, FACP, FACC, FSCAI, FHRS, CCDS Interventional Cardiology Cardiac Electrophysiology Vascular Medicine and Endovascular Interventions Esvin MATHIAS MD Dec 06, 2016 11:34 am
[2016-12-06] MEDS: ENOXAPARIN 100 MG/1 ML (LOVENOX) SYR SC SCH (12:23)
--- NOTE | 2016-12-06 12:46 | Diagnostic Imaging Report ---
EXAMINATION: Portable upright radiograph of the chest. INDICATION: Shortness of breath. FINDINGS: There is cardiomegaly. Bibasilar infiltrates are again noted without significant change. There is background pulmonary vascular congestion. There are likely small effusions. No pneumothorax. The mediastinum and sandra appear unremarkable. There is a right IJ line in place. IMPRESSION: Cardiomegaly, vascular congestion, and bibasilar infiltrates with no significant change from 12/05/2016. The findings might be secondary to cardiac failure. Dictated by: Dictated on workstation # [id number]
--- NOTE | 2016-12-06 13:40 | Occ Therapy Progress Note ---
Therapy Progress Note Pt on BiPap at this time. Spoke with nursing and she requested to hold OT at this time due to respiratory concerns. APRIL ESPINOZA Dec 06, 2016 13:40
--- NOTE | 2016-12-06 14:31 | Progress Note-Hospitalist ---
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 Today he is requiring BiPAP to maintain her SaO2 is in the low 90s. He did not awaken during my examination. His and [id number] were in the room and a discussion followed about my concern that this was a terminal trend. His respiratory rate was in the high 20s. The creatinine continues to climb slowly and today has climbed to 3.27 from 3.23. His albumin was 2.1 on admission and is 2.3 at this time. This no doubt contributes to his edema. Physical exam: The patient continues to appear critically ill. Breath sounds are distant and there is tachypnea. CV shows atrial fibrillation at a controlled rate. Abdomen is obese and nontender. There is a 2-3+ doughy edema of the hands and forearms and legs below the knees. Impression: Continuing decline with edema, poor urine output and climbing creatinine. Also atrial fibrillation which is chronic Labs Laboratory Tests 12/05/16 05:43 12/06/16 04:35 SERA MASTERSON MD Dec 06, 2016 14:31
[2016-12-06] MEDS: PIPERACILLIN/TAZOBACTAM 4.5 GM/NS 100 ML IVPB IV SCH ×2 (19:11)
[2016-12-06] MEDS: TERAZOSIN 5 MG (HYTRIN) CAPSULE PO SCH (21:44)
[2016-12-07] VITALS: BP 103/73
[2016-12-07] MEDS: inSUlin (REGULAR) HUMAN 1 UNIT/0.01 ML (CHARGE PER UNIT) SC SCH ×2 (00:12→05:57)
[2016-12-07] MEDS: RT-ALBUTEROL/IPRATROPIUM 3 ML (DUONEB) VIAL INH SCH ×2 (02:22→08:38)
[2016-12-07 04:00] VITALS: BP 104/69
[2016-12-07 04:52] LABS: BASOPHILS % (AUTO) 0 % (0-10); EOSINOPHILS # (AUTO) 0.5 10^3/uL (0.0-0.3); EOSINOPHILS % (AUTO) 5 % (0-10); LYMPHOCYTES # (AUTO) 0.6 X 10^3 (1.0-4.0); LYMPHOCYTES % (AUTO) 6 % (12-44); MEAN CORPUSCULAR HEMOGLOBIN 31 PG (25-34); MEAN CORPUSCULAR HGB CONC 31 G/DL (32-36); MEAN CORPUSCULAR VOLUME 99 FL (80-99); MEAN PLATELET VOLUME 9.9 FL (7.4-10.4); MONOCYTES # (AUTO) 0.8 X 10^3 (0.0-1.0); MONOCYTES % (AUTO) 8 % (0-12); NEUTROPHILS # (AUTO) 7.7 X 10^3 (1.8-7.8); NEUTROPHILS % (AUTO) 80 % (42-75); PLATELET COUNT 241 10^3/uL (130-400); RED BLOOD COUNT 2.72 10^6/uL (4.35-5.85); RED CELL DISTRIBUTION WIDTH 14.5 % (10.0-14.5); WHITE BLOOD COUNT 9.6 10^3/uL (4.3-11.0)
[2016-12-07 05:18] LABS: CREATININE SERUM 3.13 MG/DL (0.60-1.30); MAGNESIUM 1.9 MG/DL (1.8-2.4); POTASSIUM 4.2 MMOL/L (3.6-5.0)
[2016-12-07 05:40] LABS: ANISOCYTOSIS SLIGHT; BAND NEUTROPHILS 1 %; BASOPHILS % (MANUAL) 0 %; EOSINOPHILS % (MANUAL) 6 %; LYMPHOCYTES % (MANUAL) 4 %; NEUTROPHILS % (MANUAL) 83 %; POLYCHROMASIA SLIGHT; REACTIVE LYMPHOCYTES 2 %; TARGET CELLS SLIGHT
[2016-12-07] MEDS: KCL 20 MEQ TAB (K-DUR) PO SCH (05:57)
[2016-12-07] MEDS: MAGNESIUM 1 GM/100 ML IVPB 100 ML IV SCH (05:58)
[2016-12-07] MEDS: POTASSIUM CL 10MEQ/50ML IVPB 50 ML IV SCH (05:58)
[2016-12-07] MEDS: NS IV 1000 ML 1,000 ML IV SCH (07:00)
[2016-12-07] MEDS: PIPERACILLIN/TAZOBACTAM 4.5 GM/NS 100 ML IVPB IV SCH ×2 (07:00)
[2016-12-07] MEDS: KCL 10 MEQ TAB (MICRO K) PO SCH (07:00)
[2016-12-07] MEDS ORDERED: PANTOPRAZOLE 40 MG (PROTONIX) TAB PO SCH (07:00)
[2016-12-07] MEDS: ALLOPURINOL 100 MG (ZYLOPRIM) TAB PO SCH (07:04)
[2016-12-07 08:05] VITALS: BP 114/74
[2016-12-07] MEDS: OXYBUTYNIN (DITROPAN) 5 MG TAB PO SCH (08:06)
[2016-12-07] MEDS: CARVEDILOL 12.5 MG (COREG) TABLET PO SCH (08:06)
[2016-12-07] MEDS: GABAPENTIN 100 MG (NEURONTIN) CAP PO SCH (08:06)
--- NOTE | 2016-12-07 09:13 | Diagnostic Imaging Report ---
EXAMINATION: Portable upright radiograph of the chest. INDICATION: Shortness of breath. COMPARISON: 12/06/2016. FINDINGS: The heart size is markedly enlarged. There is pulmonary vascular congestion and bibasilar infiltrates, similar to the prior exam. No pneumothorax. There are probable small pleural effusions. There is a right internal jugular venous line. No significant change overall from the prior exam. IMPRESSION: Cardiomegaly with vascular congestion and bibasilar infiltrates. Possible small effusions. Dictated by: Dictated on workstation # [id number]
--- NOTE | 2016-12-07 11:15 | Cardiology Progress Note ---
Cardiology SOAP Progress Note Subjective: patient does not complaint of shortness of breath but is on high flow oxygen. Objective: I&O/Vital Signs Vital Sign - Last 12Hours 12/07/16 12/07/16 12/07/16 12/07/16 00:00 01:00 02:22 04:00 Temp 98.1 98.1 Pulse 94 84 80 Resp 20 22 B/P (MAP) 103/73 104/69 Pulse Ox 94 94 95 O2 Delivery High Flow NC High Flow NC O2 Flow Rate 40.00 20.00 40.00 20.00 20.00 FiO2 40 12/07/16 12/07/16 12/07/16 12/07/16 07:00 08:05 08:08 08:38 Temp 98.4 Pulse 86 87 Resp 22 B/P (MAP) 114/74 Pulse Ox 95 96 O2 Delivery High Flow NC High Flow NC O2 Flow Rate 40.00 20.00 20.00 20.00 FiO2 40 40 12/07/16 10:00 Pulse 80 Resp 28 Pulse Ox 92 Intake and Output 12/07/16 00:00 Intake Total 1275 ml Balance 1275 ml Weight (Pounds): 260 Weight (Ounces): 8.0 Weight (Calculated Kilograms): 118.225212 Constitutional: No appears stated age, No PERRL, No well-developed, No well- nourished, other (Just extubated) Respiratory: No accessory muscle use, No respiratory distress, No chest tender , No chest expansion is symmetric, No chest is bilaterally symmetric, No lungs clear to percussion, No lungs clear to auscultation, No crackles, rhonchi, No rales, No stridor, No wheezing, No pleural rub, No other Cardiovascular: No regular rate-rhythm, irregularly irregular, No extra beats, No parasternal heave is noted, No JVD, No edema, No bradycardia, No tachycardia , No point of maximal impulse, No cardiac thrills are palpable, S1 and S2, No gallop/S3, No gallop/S4, No diastolic murmur, No systolic murmur, No friction rub, No click, No other Gastrointestional: No tender, No soft, No round, No distended, No pulsatile mass, No organomegaly, No guarding, No rebound, No tenderness, No hernia, No mass, No audible bowel sounds, No abnormal bowel sounds, No abdominal bruits, No spleenomegaly, No other Extremities: No normal range of motion, No non-tender, No normal inspection, No pedal edema, No calf tenderness, No normal capillary refill, No pelvis stable , No calf tenderness, No inflammation, No pedal edema, No slow capillary refill , No swelling, No other, No abrasion, No clubbing, No cyanosis, No ecchymosis, No laceration, No no lower extremity edema bilateral, No significant edema, No tenderness, No wound Neurologic/Psychiatric: No fireman II-XII nml as tested, No no motor/sensory deficits, No alert, No normal mood/affect, No oriented x 3, No abnormal cerebellar tests, No abnormal fireman II-XII, No abnormal gait, No aphasia, No EOM palsy, No facial droop, No motor weakness, No sensory deficit, No depressed affect, No disoriented x 3, No other, No grossly intact, No power is 5/5 both on sides Skin: No normal color, No warm/dry, No cyanosis, No cool, No diaphoresis, No damp, No ecchymosis, No jaundice, No mottled, No pallor, No rash, No tattoos/ piercings, No ulcerations, No rash on exposed areas, No ulcerations on exposed areas, No other Results/Procedures: Labs Laboratory Tests 12/06/16 12:16: Glucometer 141H 12/06/16 13:05: Albumin 2.3L 12/06/16 18:12: Glucometer 99 12/06/16 23:41: Glucometer 85 12/07/16 04:45: White Blood Count 9.6, Red Blood Count 2.72L, Hemoglobin 8.4L, Hematocrit 27L, Mean Corpuscular Volume 99, Mean Corpuscular Hemoglobin 31, Mean Corpuscular Hemoglobin Concent 31L, Red Cell Distribution Width 14.5, Platelet Count 241, Mean Platelet Volume 9.9, Neutrophils (%) (Auto) 80H, Lymphocytes (%) (Auto) 6L , Monocytes (%) (Auto) 8, Eosinophils (%) (Auto) 5, Basophils (%) (Auto) 0, Neutrophils # (Auto) 7.7, Lymphocytes # (Auto) 0.6L, Monocytes # (Auto) 0.8, Eosinophils # (Auto) 0.5H, Basophils # (Auto) 0.0, Neutrophils % (Manual) 83, Lymphocytes % (Manual) 4, Monocytes % (Manual) 4, Eosinophils % (Manual) 6, Basophils % (Manual) 0, Band Neutrophils 1, Reactive Lymphocytes 2, Polychromasia SLIGHT, Anisocytosis SLIGHT, Target Cells SLIGHT, Sodium Level 145 , Potassium Level 4.2, Chloride Level 113H, Carbon Dioxide Level 22, Anion Gap 10, Blood Urea Nitrogen 42H, Creatinine 3.13H, Estimat Glomerular Filtration Rate 19, BUN/Creatinine Ratio 13, Glucose Level 88, Calcium Level 8.0L, Phosphorus Level 4.0, Magnesium Level 1.9 Microbiology 12/01/16 Blood Culture - Final, Complete No growth 11/30/16 Gram Stain - Final, Complete 11/30/16 Sputum Culture - Final, Complete Yeast Species 12/01/16 Urine Culture - Final, Complete NO GROWTH A/P: Assessment/Dx: gross hematuria s/p cystoscopy, Chronic atrial fibrillation, Congestive heart failure, recent Cardiorespiratory arrest Plan: Cardiorespiratory arrest: Chest examination reveals rhonchi. improving shortness of breath. lasix held due to worsening renal function. Likely etiology for cardiorespiratory arrest would be pulmonary embolism. Possible pulmonary embolism: Significantly elevated d-dimer. Echocardiogram shows mild RV enlargement. on full dose Lovenox (with renal adjustment) Atrial fibrillation: Patient has chronic atrial fibrillation. Xarelto when okay with urology h/o hypertension: chronic kidney disease: Worsening renal function. will continue to follow Thank you for your consultation. Please call me if you have any questions. Samina Mathias MD, FACP, FACC, FSCAI, FHRS, CCDS Interventional Cardiology Cardiac Electrophysiology Vascular Medicine and Endovascular Interventions Esvin MATHIAS MD Dec 07, 2016 11:15 am
--- NOTE | 2016-12-07 11:45 | Physical Therapy Daily Note ---
PT Daily Note-Current Subjective Agrees to get out of bed and transfer to the chair. Reports he is feeling a bit better. Transfers Functional [place] Measure 0=Not Assessed/NA 4=Minimal Assistance 1=Total Assistance 5=Supervision or Setup 2=Maximal Assistance 6=Modified [place] 3=Moderate Assistance 7=Complete IndependenceIRFPAI Quality Coding Scale 6 Independent with activity with or without an assistive device 5 Patient requires set up or clean up by helper. Patient completes activity by themselves 4 Supervision or touching assist (CGA). [place] provide cues , steadying assist 3 The helper provides less than half the effort to complete the activity 2 The helper provides more than half the effort to complete the activity 1 Dependent. The helper does all the effort to complete an activity 7 Patient refused to complete or attempt activity 9 The patient did not perform the activity before the current illness or injury 88 Not attempted due to Medical conditions or safety concerns Transfers (B, C, W/C) (FIM): 2 Scootin Rollin Supine to/from Sit: 2 (max assist with legs and trunk to sit EOB) Bed to/from Chair: 2 Sit to partial stand with FWW with mod assist but unable to come to a full stand. Sit to stand dance style and SPT bed to chair with max of 1 assist. Pt in chair post treatment with needs met and comfortable. Treatments Transfers, sat EOB x 7 minutes, up to wheelchair post treatment. Assessment Current Status: Fair Progress Pt retropulsive sitting EOB; max assist with functional mobility. Cooperative and pleasant, just limited ability to assist with mobility. PT [facility] Goals Television News Reporter Goals PT Television News Reporter Goals Time Frame: Dec 16, 2016 Transfers (B,C,W/C) (FIM): 5 Gait (FIM): 2 Gait distance (FIM): 8=131-08 ft Distance: 100' Gait Level of Assist: 5 Gait Assistive Device: FWW PT Plan Problem List Problem List: Activity Tolerance, Functional Strength, Safety, Balance, Gait, Transfer, Bed Mobility Treatment/Plan Treatment Plan: Continue Plan of Care Treatment Plan: Bed Mobility, Education, Functional Activity Aly, Functional Strength, Gait, Safety, Therapeutic Exercise, Transfers Treatment Duration: Dec 16, 2016 Visits Per Week: 6 Safety Risks/Education Patient Education: Transfer Techniques, Safety Issues Teaching Recipient: Patient Teaching Methods: Demonstration, Discussion Response to Teaching: Reinforcement Needed Time/GCodes Time In: 1012 Time Out: 1035 Total Billed Treatment Time: 23 Total Billed Treatment visit FA 23 APRIL LATIF PT Dec 07, 2016 11:45
== END 2016-12-07 14:30 | disposition expired | DRG 662 ==
LOC: 4TH 10:35 → ICU 11-29 10:45 → 4TH 12-06 07:26 → ICU 12-06 09:01
PROVIDERS: ADMIT Urology; ATTEND Urology
PROC: 0TCB8ZZ Extirpation of Matter from Bladder, Via Natural or Artificial Opening Endoscopic (ICD-10-PCS; 2016-11-29)
PROC: 0W3R8ZZ Control Bleeding in Genitourinary Tract, Via Natural or Artificial Opening Endoscopic (ICD-10-PCS; principal; 2016-11-29 08:57)
PROC: 5A1945Z Respiratory Ventilation, 24-96 Consecutive Hours (ICD-10-PCS; 2016-11-30)
DX: N30.41 Irradiation cystitis with hematuria (principal); R31.0 Gross hematuria; J96.00 Acute respiratory failure, unspecified whether with hypoxia or hypercapnia; N17.9 Acute kidney failure, unspecified; I26.99 Other pulmonary embolism without acute cor pulmonale; I46.9 Cardiac arrest, cause unspecified; I13.0 Hypertensive heart and chronic kidney disease with heart failure and stage 1 through stage 4 chronic kidney disease, or unspecified chronic kidney disease; N18.9 Chronic kidney disease, unspecified; Z66 Do not resuscitate; I50.9 Heart failure, unspecified; I48.2 Chronic atrial fibrillation; D64.9 Anemia, unspecified; I08.0 Rheumatic disorders of both mitral and aortic valves; K21.9 Gastro-esophageal reflux disease without esophagitis; G47.33 Obstructive sleep apnea (adult) (pediatric); Z85.46 Personal history of malignant neoplasm of prostate; Z92.3 Personal history of irradiation; Z87.891 Personal history of nicotine dependence
CPT/HCPCS: 36415; 71010; 71020; 71250; 80048; 80053; 81000; 82040; 82805; 82962; 83605; 83735; 83880; 84100; 84484; 85007; 85025; 85027; 85379; 86850; 86900; 86901; 87040; 87070; 87088; 87205; 93005; 93306; 93970; 94002; 94640; 94660; 94760; 94799